=== PATIENT | female | born 1945 | race Hispanic/Latino ===

== ENCOUNTER 2021-10-25 23:50 | Inpatient (IN) | payer OTHER ==
[2021-10-26 00:40] LABS: Hematocrit 42.3 % (36.0-45.0); Lymphocytes % 4.7 % (15.3-44.8); RBC Red Blood Cell Count 4.65 M/uL (3.86-4.86)
[2021-10-26 00:41] LABS: Protime INR 0.93
[2021-10-26 01:00] LABS: Bilirubin Direct 0.2 mg/dL (0-0.2); Bilirubin Total 0.9 mg/dL (0.2-1.0); Magnesium 2.3 mg/dL (1.8-2.4); Protein, Total 6.5 g/dL (6.4-8.2); Troponin (Emerg Dept Use Only) 0.04 ng/mL (0.0-0.045)
[2021-10-26 01:13] LABS: Potassium 5.7 mmol/L (3.5-5.1)
[2021-10-26] MEDS ORDERED: NA CHLORIDE 0.9% 1,000 ML ONE ×3 (01:26→08:18)
[2021-10-26] MEDS ORDERED: NA CHLORIDE 0.9% 500 ML ONE ×2 (01:27→18:11)
[2021-10-26] MEDS ORDERED: NA CHLORIDE 0.9% 100 ML ONE (01:42)
[2021-10-26] MEDS ORDERED: INSULIN -REGULAR HUMAN 50 UNIT/0.5 ML ML ONE ×3 (01:44→21:51)
[2021-10-26 01:50] LABS: SARS-COV-2 RT PCR POSITIVE (NEGATIVE)
[2021-10-26 01:59] LABS: Blood Morphology Comment NOT SEEN (NOT SEEN); Platelet Estimate DECR
[2021-10-26 02:15] LABS: Urine Blood 1+ (Negative); Urine Glucose 2+ (Negative); Urine Protein Negative (Negative); Urine Specific Gravity <=1.005 (1.005-1.030); Urine pH 5.5 (5.0-7.0)
--- NOTE | 2021-10-26 03:19 | ER ---
Nurse's Notes [facility] Name: Maren Wolfe Age: 75 yrs Sex: Female : 1945 Arrival Date: 10/25/2021 Time: 23:56 Bed 7 Private MD: Diagnosis: Positive Covid 19. Hyperglycemia. Hyponatremia Sepsis. Dehydration. S/P Fall Presentation: 10/25 23:57 Chief complaint: EMS states: Called by daughter for generalized weakness; Per EMS, lp1 blood glucose reading HIGH. Coronavirus screen: cough unrelated to allergies. Ebola Screen: No symptoms or risks identified at this time. Onset of symptoms was October 25, 2021. 23:57 Method Of Arrival: EMS: [facility] lp1 10/26 00:37 Risk Assessment: Do you want to hurt yourself or someone else? Patient reports no lp1 desire to harm self or others. 00:37 Acuity: ANNETTE 2 lp1 00:51 Initial Sepsis Screen: Does the patient meet any 2 criteria? No. Patient's initial lp1 sepsis screen is negative. Does the patient have a suspected source of infection? No. Patient's initial sepsis screen is negative. Historical: - Allergies: 10/25 23:58 No Known Allergies; lp1 - Home Meds: 23:58 Lisinopril Oral [Active]; alendronate oral [Active]; lp1 - PMHx: 23:59 breast cancer; lp1 10/26 00:52 Low platelet; lp1 - PSHx: 10/25 23:57 R mastectomy; lp1 - Immunization history:: Client reports having NOT received the Covid vaccine. - Social history:: Smoking status: Patient denies any tobacco usage or history of. Screenin:59 Abuse screen: Denies threats or abuse. Denies injuries from another. Nutritional lp1 screening: No deficits noted. Tuberculosis screening: No symptoms or risk factors identified. Fall Risk Total Galeas Fall Scale indicates High Risk Score (45 or more points). Fall prevention measures have been instituted. Side Rails Up X 2 Frequent Obs/Assessments Occuring As available patient and family educated on Fall Prevention Program and Strategies. Assessment: 10/26 01:54 Pain: Unable to use pain scale. Does not appear to understand pain scale. Neuro: Level tw5 of Consciousness is confused, lethargic, stuporous. 02:06 Cardiovascular: Heart tones S1 S2 present Capillary refill < 3 seconds is brisk in tw5 bilateral fingers. Respiratory: Airway is patent Trachea midline Respiratory effort is even, unlabored, Breath sounds are coarse bilaterally. : Urine is clear. 03:30 Reassessment: Notified by daughter of patient with skin tear to left elbow after lp1 returning from CT; Skin tear cleansed with NS, no active bleeding noted, treated with triple antibiotic, gauze and MIL wrap applied. 04:00 Reassessment: Linens and gown changed. lp1 06:36 Reassessment: Per Dr. Kidd, verbal order to stop Insulin drip at this time and order lp1 STAT BMP, lab notified. 20:50 Reassessment: report called to JOSE JUAN Ying. Room 412. al4 Vital Signs: 00:51 BP 177 / 95; Pulse 94; Resp 24; Temp 99.7; Pulse Ox 97% on R/A; Weight 65.77 kg (R); lp1 02:06 BP 170 / 86; Pulse 99; Resp 24; Pulse Ox 98% on R/A; tw5 04:15 Temp 99.5(O); lp1 05:52 BP 83 / 49; Pulse 112; Resp 28; Pulse Ox 97% ; tw5 ED Course: 03 23:56 Patient arrived in ED. mw2 23:59 Ayo Schuler MD is Attending Physician. pkl 23:59 Patient has correct armband on for positive identification. Placed in gown. Bed in low lp1 position. hospital monitor on. Pulse ox on. NIBP on. 10/26 00:20 Inserted saline lock: 22 gauge in left antecubital area, using aseptic technique. Blood lp1 collected. 00:30 XRAY Chest (1 view) In Process Unspecified. EDMS 00:32 COVID swab sent to lab. lp1 00:37 Shira Rondon RN is Primary Nurse. lp1 00:38 Triage completed. lp1 00:52 Arm band placed on right wrist. lp1 01:46 Head C Spine Cap Wo Con In Process Unspecified. EDMS 02:06 Door closed. Noise minimized. Moved to private room. Warm blanket given. Verbal tw5 reassurance given. 02:06 Garza cath inserted, using sterile technique, 16 Fr., by me, balloon inflated, to tw5 gravity drainage, urine specimen collected. returned clear yellow urine. Patient tolerated well. Inserted saline lock: 22 gauge in left hand, using aseptic technique. IV discontinued, intact, bleeding controlled, No redness/swelling at site. Pressure dressing applied. 02:11 Creatinine, Serum Sent. tw5 02:11 Blood Culture Sent. tw5 02:12 Blood Culture Sent. tw5 02:12 Hemoglobin A1c Sent. tw5 03:15 Chikis Smith MD is Hospitalizing Provider. pkl 15:50 LJ notified patient's family in the waiting room yelling and cursing at staff. dh3 Administered Medications: 02:08 Drug: Insulin Regular Human 10 units {Co-Signature: rivera1 (Shira oRndon RN).} Route: IVP; tw5 Site: left hand; 02:09 Drug: Insulin Drip - (Insulin Regular Human 100 units, NS 0.9% 100 ml) {Co-Signature: tw5 trinidad (Shira Rondon RN).} Route: IV; Rate: calculated rate; Site: left hand; 02:10 CANCELLED (Duplicate Order): Insulin Regular Human 10 units IVP once tw5 02:10 Drug: NS 0.9% 1000 ml Route: IV; Rate: 1 bolus; Site: left hand; tw5 02:10 Not Given (Duplicate Order): NS 0.9% 1000 ml IV at 1000 ml once tw5 02:11 Drug: NS 0.9% 500 ml Route: IV; Rate: bolus; Site: left hand; tw5 02:11 Drug: NS 0.9% 1000 ml Route: IV; Rate: 100 ml/hr; Site: left hand; tw5 04:10 Drug: morphine 2 mg Route: IVP; Site: left hand; lp1 04:10 Drug: Zofran (Ondansetron) 4 mg Route: IVP; Site: left hand; lp1 04:15 Drug: Tylenol 500 mg Route: PO; lp1 Output: 04:57 Urine: 1900ml (Garza); Total: 1900ml. tw5 Outcome: 03:18 Decision to Hospitalize by Provider. pkl 04:58 Admitted to ER Hold. Please see [facility] for further documentation. lp1 04:58 critical 04:58 Instructed on the need for admit. 22:10 Patient left the ED. as6 Signatures: Dispatcher [employer] EDMS Ayo Schuler MD MD pkl Pena, Laura, RN RN lp1 [facility] Leanna Angel 2 Keyona Barnes 5 Adam Reid RN RN as6 Macho Lewis al4 Shira Rondon RN lp1
--- NOTE | 2021-10-26 03:19 | EDPHYS ---
Physician Documentation [facility] Name: Maren Wolfe Age: 75 yrs Sex: Female : 1945 Arrival Date: 10/25/2021 Time: 23:56 Bed 7 Private MD: ED Physician Ayo Schuler HPI: 10/26 00:42 This 75 yrs old Female presents to ER via EMS with unknown complaint. pkl 00:42 The patient presents with abdominal pain in the upper abdomen. Onset: The pkl symptoms/episode began/occurred today. Associated signs and symptoms: Pertinent positives: nausea and vomiting. Daughter called said patient has generalized weakness for a few days. Historical: - Allergies: 10/25 23:58 No Known Allergies; lp1 - Home Meds: 23:58 Lisinopril Oral [Active]; alendronate oral [Active]; lp1 - PMHx: 23:59 breast cancer; lp1 10/26 00:52 Low platelet; lp1 - PSHx: 10/25 23:57 R mastectomy; lp1 - Immunization history:: Client reports having NOT received the Covid vaccine. - Social history:: Smoking status: Patient denies any tobacco usage or history of. ROS: 10/26 00:42 Eyes: Negative for injury, pain, redness, and discharge, ENT: Negative for injury, pkl pain, and discharge, Neck: Negative for injury, pain, and swelling, Cardiovascular: Negative for chest pain, palpitations, and edema, Respiratory: Negative for shortness of breath, cough, wheezing, and pleuritic chest pain. Abdomen/GI: Positive for abdominal pain, nausea and vomiting, of the umbilical area and left upper quadrant. Back: Negative for acute changes. : Negative for urinary symptoms. MS/extremity: Negative for acute changes. Skin: Negative for rash. Neuro: Positive for weakness, of the generalized. Exam: 00:42 Head/Face: Normocephalic, atraumatic. Eyes: Pupils equal round and reactive to light, pkl extra-ocular motions intact. Lids and lashes normal. Conjunctiva and sclera are non-icteric and not injected. Cornea within normal limits. Periorbital areas with no swelling, redness, or edema. ENT: Nares patent. No nasal discharge, no septal abnormalities noted. Tympanic membranes are normal and external auditory canals are clear. Oropharynx with no redness, swelling, or masses, exudates, or evidence of obstruction, uvula midline. Mucous membranes moist. Neck: Trachea midline, no thyromegaly or masses palpated, and no cervical lymphadenopathy. Supple, full range of motion without nuchal rigidity, or vertebral point tenderness. No Meningismus. Chest/axilla: Normal chest wall appearance and motion. Nontender with no deformity. No lesions are appreciated. Cardiovascular: Regular rate and rhythm with a normal S1 and S2. No gallops, murmurs, or rubs. Normal PMI, no JVD. No pulse deficits. Respiratory: Lungs have equal breath sounds bilaterally, clear to auscultation and percussion. No rales, rhonchi or wheezes noted. No increased work of breathing, no retractions or nasal flaring. 00:42 Abdomen/GI: Bowel sounds: normal, Palpation: soft, mild abdominal tenderness, in the right upper quadrant and left upper quadrant. 00:42 Back: Exam negative for acute changes. 00:42 : Exam negative for acute changes. 00:42 Musculoskeletal/extremity: Exam is negative for acute changes. 00:42 Skin: Exam negative for rash. 00:42 Neuro: Orientation: is normal, Mentation: is normal, Cranial nerves: grossly normal, Motor: moves all fours. Vital Signs: 00:51 BP 177 / 95; Pulse 94; Resp 24; Temp 99.7; Pulse Ox 97% on R/A; Weight 65.77 kg (R); lp1 02:06 BP 170 / 86; Pulse 99; Resp 24; Pulse Ox 98% on R/A; tw5 04:15 Temp 99.5(O); lp1 05:52 BP 83 / 49; Pulse 112; Resp 28; Pulse Ox 97% ; tw5 MDM: 10/25 23:59 Patient medically screened. pkl 10/26 03:13 Data reviewed: vital signs, nurses notes, lab test result(s), EKG, radiologic studies, pkl CT scan, plain films. ED course: Talked to Dr. Smith. Admit to ICH. 10/26 00:08 Order name: Basic Metabolic Panel; Complete Time: 08:07 pkl 10/26 00:08 Order name: CBC with Diff; Complete Time: 02:31 pkl 10/26 00:08 Order name: LFT's; Complete Time: 08:07 pkl 10/26 00:08 Order name: Magnesium; Complete Time: 08:07 pkl 10/26 00:08 Order name: NT PRO-BNP; Complete Time: 08:07 pkl 10/26 00:08 Order name: PT-INR; Complete Time: 01:27 pkl 10/26 00:08 Order name: Troponin (emerg Dept Use Only); Complete Time: 08:07 pkl 10/26 00:08 Order name: Hemoglobin A1c pkl 10/26 00:10 Order name: COVID-19/FLU A+B (Document "Date of Onset" if Symptomatic); Complete Time: pkl :10/26 00:10 Order name: Lactate; Complete Time: 01:27 pkl 10/26 00:10 Order name: Creatinine, Serum pkl 10/26 00:28 Order name: Glucose, Ancillary Testing; Complete Time: 01:27 EDMS 10/26 00:48 Order name: Blood Culture; Complete Time: 19:01 EDMS 10/26 00:48 Order name: Blood Culture; Complete Time: 19:01 EDMS 10/26 00:49 Order name: Manual Differential; Complete Time: 02:31 EDMS 10/26 02:13 Order name: Urine Dipstick-Ancillary; Complete Time: 02:31 EDMS 10/26 02:31 Order name: Ketone, Serum pkl 10/26 02:31 Order name: Acetone Level; Complete Time: 03:18 EDMS 10/26 04:31 Order name: UR CREAT; Complete Time: 19:01 EDMS 10/26 04:31 Order name: UR SODIUM; Complete Time: 19:01 EDMS 10/26 04:31 Order name: Comprehensive Metabolic Panel EDMS 10/26 04:31 Order name: Comprehensive Metabolic Panel; Complete Time: 19:01 EDMS 10/26 04:31 Order name: Creatine Phosphokinase EDMS 10/26 04:31 Order name: Creatine Phosphokinase; Complete Time: 19:01 EDMS 10/26 04:31 Order name: Creatine Phosphokinase; Complete Time: 19:01 EDMS 10/26 04:31 Order name: Vancomycin Level Trough EDMS 10/26 00:08 Order name: XRAY Chest (1 view); Complete Time: 08:07 pkl 10/26 01:25 Order name: Head C Spine Cap Wo Con; Complete Time: 19: EDMS 10/26 04:31 Order name: Echo with Doppler EDMS 10/26 04:31 Order name: CBC with Automated Diff EDMS 10/26 04:31 Order name: CBC with Automated Diff; Complete Time: 19: EDMS 10/26 04:32 Order name: Renal Ultrasound-Complete; Complete Time: 19: EDMS 10/26 04:51 Order name: Creatine Phosphokinase; Complete Time: 08:07 EDMS 10/26 04:51 Order name: Thyroid Stimulating Hormone; Complete Time: 08:07 EDMS 10/26 05:12 Order name: Lactate Sepsis 2 HR Follow-up; Complete Time: 08:07 EDMS 10/26 06:29 Order name: Glucose, Ancillary Testing; Complete Time: 08:07 EDMS 10/26 06:57 Order name: Hemoglobin A1c; Complete Time: 08:07 EDMS 10/26 07:19 Order name: Basic Metabolic Panel; Complete Time: 08:07 EDMS 10/26 08:34 Order name: Glucose, Ancillary Testing; Complete Time: : EDMS 10/26 09:30 Order name: Type And Screen bp 10/26 10:53 Order name: ABO/RH no charge; Complete Time: : EDMS 10/26 11:08 Order name: Fibrinogen; Complete Time: : EDMS 10/26 11:11 Order name: PTT, Activated Partial Thromb; Complete Time: : EDMS 10/26 12:10 Order name: Type and Screen; Complete Time: 19: EDMS 10/26 12:29 Order name: Antibody Screen; Complete Time: : EDMS 10/26 13:56 Order name: Procalcitonin; Complete Time: 19: EDMS 10/26 14:10 Order name: Glucose, Ancillary Testing; Complete Time: : EDMS 10/26 15:39 Order name: Glucose, Ancillary Testing; Complete Time: : EDMS 10/26 18:23 Order name: Glucose, Ancillary Testing; Complete Time: : EDMS 10/26 19:46 Order name: Glucose, Ancillary Testing; Complete Time: : EDMS 10/26 21:42 Order name: D-Dimer; Complete Time: : EDMS 10/26 21:57 Order name: Glucose, Ancillary Testing; Complete Time: : EDMS 10/26 00:08 Order name: EKG; Complete Time: 00:09 pk 10/26 00:08 Order name: Cardiac monitoring; Complete Time: pkl 10/26 00:08 Order name: EKG - Nurse/Tech; Complete Time: pkl 10/26 00:08 Order name: IV Saline Lock; Complete Time: pkl 10/26 00:08 Order name: Labs collected and sent; Complete Time: pkl 10/26 00:08 Order name: O2 Per Protocol; Complete Time: : pkl 10/26 00:08 Order name: O2 Sat Monitoring; Complete Time: pkl 10/26 00:10 Order name: Urine Dipstick-Ancillary (obtain specimen); Complete Time: 02:11 pkl 10/26 04:31 Order name: CONS Physician Consult EDAZ 10/26 04:31 Order name: Physical Therapy Consult EDAZ 10/26 04:31 Order name: NPO EDAZ Administered Medications: 02:08 Drug: Insulin Regular Human 10 units {Co-Signature: lp1 (Shira Rondon RN).} Route: IVP; Site: left hand; 02:09 Drug: Insulin Drip - (Insulin Regular Human 100 units, NS 0.9% 100 ml) {Co-Signature: lp1 (Shira Rondon RN).} Route: IV; Rate: calculated rate; Site: left hand; 02:10 CANCELLED (Duplicate Order): Insulin Regular Human 10 units IVP once tw 02:10 Drug: NS 0.9% 1000 ml Route: IV; Rate: 1 bolus; Site: left hand; tw5 02:10 Not Given (Duplicate Order): NS 0.9% 1000 ml IV at 1000 ml once tw5 02:11 Drug: NS 0.9% 500 ml Route: IV; Rate: bolus; Site: left hand; tw5 02:11 Drug: NS 0.9% 1000 ml Route: IV; Rate: 100 ml/hr; Site: left hand; tw5 04:10 Drug: morphine 2 mg Route: IVP; Site: left hand; lp1 04:10 Drug: Zofran (Ondansetron) 4 mg Route: IVP; Site: left hand; lp1 04:15 Drug: Tylenol 500 mg Route: PO; lp1 Disposition Summary: 10/26/21 03:18 Hospitalization Ordered Hospitalization Status: Inpatient Admission pkl Provider: Chikis Smith pkl Condition: Stable pkl Problem: new pkl Symptoms: are unchanged pkl Bed/Room Type: Standard pkl Location: Telemetry/MedSurg (Inpatient)(10/26/21 20:18) mw Room Assignment: 412(10/26/21 20:18) mw Diagnosis - Positive Covid 19. Hyperglycemia. Hyponatremia Sepsis. Dehydration. S/P Fall pkl Forms: - Medication Reconciliation Form pkl - SBAR form pkl Signatures: Dispatcher [employer] EDMS Sunshine Lala RN RN Ayo Schuler MD MD pkl Zbigniew Mooney MD MD rn Pena, Laura, RN RN lp1 Keyona Barnes tw5 Shira Rondon RN lp1 Corrections: (The following items were deleted from the chart) 01:22 01:11 Abdomen Pelvis W Con+CT.RAD.BRZ ordered. EDMS EDMS 01:23 01:11 Chest For PE Angio+CT.RAD.BRZ ordered. EDMS EDMS 01:25 01:22 Chest Abd Pelvis Wo Con ordered. EDMS EDMS 01:41 00:53 BLOOD CULTURE*+BA.LAB.BRZ ordered. EDMS EDMS 01:46 01:23 Head Brain Wo Cont ordered. EDMS EDMS 02:10 01:35 Insulin Regular Human 10 units IVP once ordered. 1 tw5 03:24 03:18 Intensive Care Unit pkl mw 03:24 03:18 pkl mw 04:42 04:30 Blood Culture ordered. EDMS EDMS 04:42 04:31 Vancomycin Level Trough ordered. EDMS EDMS 04:51 04:31 Thyroid Stimulating Hormone ordered. EDMS EDMS 04:51 04:31 Creatine Phosphokinase ordered. EDMS EDMS 20:18 03:24 [facility] ER HOLD mw mw 20:18 03:24 ERHOLD- mw mw
[2021-10-26] MEDS ORDERED: ONDANSETRON 4 MG/2 ML VIAL ONE (03:32)
[2021-10-26] MEDS ORDERED: MORPHINE 2 MG/ML SYR ONE ×2 (03:32→21:50)
--- NOTE | 2021-10-26 04:19 | P.HP ---
Certification for Inpatient With expected LOS: >2 Midnights Patient will require the following post-hospital care: None Practitioner: I am a practitioner with admitting privileges, knowledge of patient current condition, hospital course, and medical plan of care. Services: Services provided to patient in accordance with Admission requirements found in Title 42 Section 412.3 of the Code of Federal Regulations Patient History Date of Service: 10/26/21 Reason for admission: Weakness and recurrent falls History of Present Illness: 75-year-old female with past medical history of hypertension, recent work-up by physicians at [facility] and told of low platelet count, prior history of breast cancer status post mastectomy and 1 round of chemo/radiation over 10 years ago, presented after being brought by daughters to the emergency room because of recurrent falls in the last 2 weeks. As well as noted bruising no fatty liver left flank, progressive weakness. Daughter stated patient recently had a recent upper respiratory tract infection 5 days ago and was treated with Z-Joey as well as steroids. She has finished the course of steroids now. Still denies patient has any cough or fever they have noted patient has been having abnormal movement of the extremities. Patient has been been gradually more lethargic and unable to hold conversation now. Daughter stated patient does not have any exposure. They are unsure if patient had a Covid vaccine or flu shot as directed patient received the vaccine above 5 months ago. On presentation patient was noted with elevated glucose of 1152, creatinine of 4.5, potassium 5.7 and sodium 118. Her platelet count was low at 9. Family states patient has previously not been managed for thrombocytopenia. They states she was never treated with steroid but was only told her platelet count was low during work-up about a month ago. Family denies any prior history of diabetes. They state patient barely takes any medication as she only take holistic meds. Patient was also noted with Covid positive status although family states they would like to test repeated as they do not think patient have Covid. She has been admitted for severe hyperglycemia, acute renal failure, Covid pneumonia as well as significant thrombocytopenia Home medications list reviewed: No (Daughters will bring full med list) - Past Medical/Surgical History Diabetic: No -: History of breast cancer -: Recently told low platelet -: Hypertension Past Surgical History: Reviewed- Non-Contributory -: History of mastectomy -: History of - Social History Smoking Status: Never smoker Alcohol use: No CD- Drugs: No Caffeine use: No Place of Residence: Home Review of Systems is unable to be obtained Physical Examination - Physical Exam General: Delirious (Elderly female, on nasal cannula O2) HEENT: Atraumatic, Normocephalic, Other (Dry oral mucosa) Neck: Supple, 2+ carotid pulse no bruit, JVD not distended Respiratory: Clear to auscultation bilaterally, Normal air movement Cardiovascular: No edema, Regular rate/rhythm, Normal S1 S2 Gastrointestinal: Normal bowel sounds, Soft and benign, Non-distended Musculoskeletal: No clubbing, No swelling Integumentary: Other ( ecchymosis over a large portion of the left flank) Neurological: Other (Drowsy/lethargic) - Studies Laboratory Data (last 24 hrs) 10/26/21 00:20: PT 10.7, INR 0.93 10/26/21 00:20: WBC 21.30 H*, Hgb 13.2, Hct 42.3, Plt Count 9 L* 10/26/21 00:20: Sodium 118 L*, Potassium 5.7 H*, BUN 62 H, Creatinine 4.51 H, Glucose 1152 H*, Magnesium 2.3, Total Bilirubin 0.9, AST 17, ALT 24, Alkaline Phosphatase 71 Imagings Data: Chest x-ray reviewedsmall right hilar infiltrate noted Assessment and Plan - Problems (Diagnosis) (1) COVID-19 virus RNA test result positive at limit of detection Current Visit: Yes Status: Acute (2) Acute kidney failure with lesion of tubular necrosis Current Visit: Yes Status: Acute (3) Hyperglycemia without ketosis Current Visit: Yes Status: Acute (4) Hyponatremia syndrome Current Visit: Yes Status: Acute (5) Hyperkalemia Current Visit: Yes Status: Acute (6) Thrombocytopenia Current Visit: Yes Status: Acute (7) Diastolic CHF Current Visit: Yes Status: Acute - Plan Hyperglycemia with [place] onset diabetes mellitus in setting of recent steroid use Acute renal failure Severe thrombocytopenia Presumed diastolic CHF Presumed right base pneumonia Hyperkalemia Hyponatremia Recurrent falls Plan We will admit to ICU We will start insulin drip Every hour glucose monitoring Might need long-acting insulin doses Given my elevated BNP, will start Lasix doses now Follow creatinine and BUN levels Serum sodium likely due to pseudohyponatremia, follow with glucose control Elevated potassium likely to improve with diuresis and insulin use Severe low platelets, continue to monitor may need platelet transfusion if further evidence of bleeding We will consult oncology for further thrombocytopenia evaluation We will consult PT and OT will more awake Start empirical Rocephin given small infiltrate of the right base on chest x-ray Obtain CT of the head/abdomen and chest Daughters discussed withdamián patient to be DNR/DNI Positive hospital stay for more than 48 hours We will do IV Protonix for now Discharge Plan: Home Plan to discharge in: Greater than 2 days - Advance Directives Does patient have a Living Will: No Does patient have a Durable POA for Healthcare: No - Code Status/Comfort Care Code Status: Do Not Intubate
[2021-10-26] MEDS ORDERED: ONDANSETRON 4 MG/2 ML VIAL IV PRN (04:24)
[2021-10-26] MEDS ORDERED: ALBUTEROL 2.5 MG/3 ML NEB SOL NEB PRN (04:24)
[2021-10-26] MEDS ORDERED: guaiFENesin 100 MG/5 ML UCUP PO PRN (04:28)
[2021-10-26] MEDS ORDERED: ACETAMINOPHEN 500 MG TAB ONE (04:39)
[2021-10-26] MEDS ORDERED: FUROSEMIDE 40 MG/4 ML VIAL IV SCH (05:00)
[2021-10-26 05:32] LABS: Thyroid Stimulating Hormone 0.276 uIU/mL (0.360-3.740)
--- NOTE | 2021-10-26 06:19 | P.PN ---
Subjective Date of Service: 10/26/21 Chief Complaint: Weakness and recurrent falls Subjective: Other (Patient alert but with increased somnolence) Physical Examination - Studies Laboratory Data (last 24 hrs) 10/26/21 00:20: PT 10.7, INR 0.93 10/26/21 00:20: WBC 21.30 H*, Hgb 13.2, Hct 42.3, Plt Count 9 L* 10/26/21 00:20: Sodium 118 L*, Potassium 5.7 H*, BUN 62 H, Creatinine 4.51 H, Glucose 1152 H*, Magnesium 2.3, Total Bilirubin 0.9, AST 17, ALT 24, Alkaline Phosphatase 71 Assessment & Plan Discharge Plan: Home Plan to discharge in: Greater than 2 days Physician Review Additional Text: COVID: Positive Unvaccinated Initial CXR: COMPARISON: none FINDINGS: The lungs appear clear of acute infiltrate. The heart is normal size IMPRESSION: No acute abnormalities displayed CT Head/Neck/Chest/AB/Pelvis: COMPARISON: None. FINDINGS: Multiple transaxial tomograms of the brain were obtained from the base of the skull to the vertex without contrast. 2-D multiplanar reformats and the coronal and sagittal plane were performed and reviewed. Multiple axial CT images through the cervical spine were obtained at 2 mm slice thickness at 2 mm interval reconstruction. In addition 2-D multiplanar reformats and the sagittal coronal plane were performed and reviewed. Multiple transaxial tomograms of the chest were obtained from the lung apices through the adrenal glands, utilizing 5 mm slice thickness at 5 mm interval reconstruction without the administration of IV contrast. Multiplanar reformats in the sagittal and coronal plane were generated and reviewed. Multiple transaxial tomograms of the abdomen and pelvis were performed from the lung bases to the symphysis pubis 5 mm slice thickness at 5 mm interval reconstruction, without administration of IV and oral contrast. Multiplanar reformats in the sagittal and coronal plane were generated and reviewed. This exam was performed according to our departmental dose-optimization protocol, which includes automated exposure control, adjustment of the mA and/or kV according to patient size and/or use of iterative reconstruction technique. CT brain: Brain parenchyma demonstrate mild prominence of the sulci and gyri are corresponding to mild cerebral and cerebellar atrophy. There is minimal periventricular white matter changes of microvascular ischemia. There is no midline shift and/or mass effect. There is no evidence for acute intracranial hemorrhage. Lateral ventricles and cisterns displace normal appearance. No intra or extra axial fluid collections were seen. The calvarium is intact with no evidence for fracture. The visualized portions of the paranasal sinuses and orbits demonstrate to be clear. CT C-spine: There is diffuse bony osteopenia. The alignment of the vertebral bodies are normal. There is no evidence of fracture or subluxation. There is degenerative very minimal disc disease with decreased intervertebral disc height, anterior spondylosis and posterior osteophyte complex at C5/C6. Also degenerative changes are seen within the anterior arch of C1 and dens. The spinal canal demonstrate no evidence for significant stenosis. Neural foramina demonstrate to be unremarkable. There are uncovertebral degenerative changes C2- C6. There is no prevertebral soft tissue swelling. Sagittal coronal reformatted images demonstrate no subluxation or bony abnormalities. CT chest: The lungs parenchyma demonstrate dependent atelectatic changes especially along the right lung base with mild elevation of the right hemidiaphragm. No significant masses and/or nodules are identified. The trachea mainstem bronchus demonstrate to be normal. There is no significant pleural and/or pericardial effusions. The heart is nonenlarged. There are mitral annular calcification. There are very minimal coronary artery calcifications. There is intimal thoracic aortic arch calcification. There is no significant mediastinal and/or hilar lymphadenopathy. The axillary regions demonstrate to be clear. The bone windows demonstrate mild diffuse bony osteopenia. Degenerative changes glenohumeral joint greater right than left. CT abdomen pelvis: Grossly the unopacified liver, pancreas, spleen and adrenal glands demonstrate to be within normal limits, no significant focal lesions were identified. Radiodensity within the fundus of the gallbladder corresponding to cholelithiasis The kidneys demonstrate bilateral hydronephrosis and hydroureter with a markedly distended urinary bladder. Probable cystocele. There is perinephric haziness suggesting fluid versus less likely inflammation. There is no evidence for nephrolithiasis. Grossly the unopacified stomach, small bowel and large bowel demonstrate to be within normal limits. There is no evidence for bowel dilatation/or free air. There is diverticulosis within the left site colon The appendix is unremarkable. The uterus is absent The aorta demonstrate atherosclerotic disease. There is no retroperitoneal lymphadenopathy. There is no evidence for ascites. The bone windows demonstrate diffuse bony osteopenia. Superior endplate compression deformity at T12 and L1 as well as L3. Degenerative disc disease L4- S1 with posterior facet hypertrophy. IMPRESSION: Mild cerebral and cerebellar atrophy with minimal periventricular white matter changes of microvascular ischemia. No evidence for fracture or subluxation of the cervical spine. Degenerative changes as described above. Cholelithiasis. Bilateral hydronephrosis and hydroureter with a markedly distended urinary bladder with probable cystocele. There is perinephric haziness suggesting fluid versus less likely inflammation. Diverticulosis with no evidence for diverticulitis. Superior endplate compression deformity at T12 and L1 as well as L3. Atherosclerotic disease of the thoracic and abdominal aorta. Renal US: COMPARISON: October 11, 2021 FINDINGS: The right kidney measures 10 cm with a normal echotexture. Small echogenic structure midpole The left kidney measures 9 cm with a normal echotexture. Hydronephrosis is not seen. A Garza catheter is present within a collapsed bladder. IMPRESSION: Small echogenic structure mid pole right kidney may represent a nonobstructing calculus Physical exam: General: Patient alert to stimuli. Increased somnolence noted HEENT: Atraumatic, Normocephalic, Other (Dry oral mucosa) Neck: Supple, 2+ carotid pulse no bruit, JVD not distended Respiratory: Clear to auscultation bilaterally, Normal air movement Cardiovascular: No edema, Regular rate/rhythm, Normal S1 S2 Gastrointestinal: Normal bowel sounds, Soft and benign, Non-distended Musculoskeletal: No clubbing, No swelling Integumentary: Dry skin Neurological: Other (Drowsy/lethargic) Impression: Acute metabolic encephalopathy secondary to acute renal failure with hyponatremia, hyperkalemia COVID positive Nonketotic hyperosmolar Hyperglycemia with DM type 2 Acute on chronic thrombocytopenia History of breast cancer Leukocytosis Plan: Acute metabolic encephalopathy secondary to acute renal failure with hyponatremia, hyperkalemia: Continue with IV fluids. Recheck BMP shows improvement in renal function. Hyponatremia improved. Hyperkalemia improved. Continue with IV fluids. Nephrology consulted. Await recommendations. Renal ultrasound shows no hydronephrosis. Nonobstructing calculus noted to the right midpole kidney. Continue to monitor closely. Monitor blood pressure closely. Patient may require vasopressor. Will discuss further with pulmonology and nephrology. COVID positive: Patient appears asymptomatic. Patient unvaccinated. Will monitor closely. Await recommendations from pulmonology. Patient on room air. Chest x-ray unremarkable. Nonketotic hyperosmolar Hyperglycemia with DM type 2: Patient was initially placed on IV insulin drip. This has been held. Continue Accu-Cheks and sliding scale. Hemoglobin A1c 11.2. We will continue to monitor closely. Acute on chronic thrombocytopenia: Patient has been seen by [facility]. Patient was placed on prednisone 40 mg daily recently. She was to have a bone marrow biopsy. Case discussed with hematology. Will obtain peripheral smear, fibrinogen, monitor PTT INR and PTT. 2 units of platelets to be given. Continue to monitor closely. Await further conditions from hematology. History of breast cancer: Patient is seen by [facility]. Leukocytosis: Etiology unclear. This may be related to Covid pneumonia and recent steroid use. Will monitor closely. Will check procalcitonin. Patient empirically on Rocephin. Blood cultures obtained. CODE STATUS: This was discussed in detail with family. Patient is DO NOT RESUSCITATE. DVT prophylaxis: SCDs in place. No anticoagulation recommended due to thrombocytopenia. Advance care [id number] minutes: Anticipate improvement. We will continue monitor closely.
[2021-10-26 07:18] LABS: Potassium 4.8 mmol/L (3.5-5.1)
[2021-10-26] MEDS: NA CHLORIDE 0.9% 1,000 ML IV SCH ×2 (08:00→18:00)
[2021-10-26] MEDS: FOLIC ACID 1 MG in NA CHLORIDE 0.9% 50 ML IV SCH (08:01)
[2021-10-26] MEDS: METHYLPREDNISOLONE 40 MG INJ IV SCH ×2 (08:04→17:00)
[2021-10-26] MEDS: FAMOTIDINE 20 MG/2 ML VIAL IV SCH (08:04)
[2021-10-26] MEDS: CEFTRIAXONE 1,000 MG in NA CHLORIDE 0.9% 50 ML IVPB SCH (08:04)
--- NOTE | 2021-10-26 08:05 | RAD REPORT ---
EXAM DESCRIPTION: Leigh Ann Single View10/26/2021 12:30 am CLINICAL HISTORY: Weakness COMPARISON: none FINDINGS: The lungs appear clear of acute infiltrate. The heart is normal size IMPRESSION: No acute abnormalities displayed
[2021-10-26] MEDS ORDERED: METHYLPREDNISOLONE 40 MG INJ ONE (08:18)
[2021-10-26] MEDS ORDERED: NA CHLORIDE 0.9% 50 ML ONE (08:18)
[2021-10-26] MEDS ORDERED: CEFTRIAXONE 1000 MG/VIAL ONE (08:18)
[2021-10-26] MEDS ORDERED: FAMOTIDINE 20 MG/2 ML VIAL IV ONE (08:18)
[2021-10-26] MEDS: THIAMINE 200 MG/2 ML INJ IVP SCH (09:00)
[2021-10-26] MEDS ORDERED: ENOXAPARIN 40 MG/0.4 ML SQ SCH (09:00)
[2021-10-26] MEDS ORDERED: dexAMETHasone 4 MG TAB PO SCH (09:00)
[2021-10-26] MEDS ORDERED: FOLIC ACID 5 MG/ML VIAL IVP SCH (09:00)
--- NOTE | 2021-10-26 09:03 | RAD REPORT ---
EXAM DESCRIPTION: US - Renal Ultrasound-Complete - 10/26/2021 6:11 am CLINICAL HISTORY: Acute renal failure COMPARISON: October 11, 2021 FINDINGS: The right kidney measures 10 cm with a normal echotexture. Small echogenic structure midpo le The left kidney measures 9 cm with a normal echotexture. Hydronephrosis is not seen. A Garza catheter is present within a collapsed bladder. IMPRESSION: Small echogenic structure mid pole right kidney may represent a nonobstructing calculus
--- NOTE | 2021-10-26 10:28 | RAD REPORT ---
EXAM DESCRIPTION: CT - Head C Spine Cap Aga Con - 10/26/2021 6:22 am CLINICAL HISTORY: 75 years, Female, ABD PAIN COMPARISON: None. FINDINGS: Multiple transaxial tomograms of the brain were obtained from the base of the skull to the vertex without contrast. 2-D multiplanar reformats and the coronal and sagittal plane were performed and reviewed. Multiple axial CT images through the cervical spine were obtained at 2 mm slice thickness at 2 mm int erval reconstruction. In addition 2-D multiplanar reformats and the sagittal coronal plane were perfo rmed and reviewed. Multiple transaxial tomograms of the chest were obtained from the lung apices through the adrenal gla nds, utilizing 5 mm slice thickness at 5 mm interval reconstruction without the administration of IV contrast. Multiplanar reformats in the sagittal and coronal plane were generated and reviewed. Multiple transaxial tomograms of the abdomen and pelvis were performed from the lung bases to the sym physis pubis 5 mm slice thickness at 5 mm interval reconstruction, without administration of IV and o ral contrast. Multiplanar reformats in the sagittal and coronal plane were generated and reviewed. This exam was performed according to our departmental dose-optimization protocol, which includes auto mated exposure control, adjustment of the mA and/or kV according to patient size and/or use of iterat fatimah reconstruction technique. CT brain: Brain parenchyma demonstrate mild prominence of the sulci and gyri are corresponding to mil d cerebral and cerebellar atrophy. There is minimal periventricular white matter changes of microvasc ular ischemia. There is no midline shift and/or mass effect. There is no evidence for acute intracran ial hemorrhage. Lateral ventricles and cisterns displace normal appearance. No intra or extra axi al fluid collections were seen. The calvarium is intact with no evidence for fracture. The visualized portions of the paranasal sinuses and orbits demonstrate to be clear. CT C-spine: There is diffuse bony osteopenia. The alignment of the vertebral bodies are normal. The re is no evidence of fracture or subluxation. There is degenerative very minimal disc disease with de creased intervertebral disc height, anterior spondylosis and posterior osteophyte complex at C5/C6. A lso degenerative changes are seen within the anterior arch of C1 and dens. The spinal canal demonstra te no evidence for significant stenosis. Neural foramina demonstrate to be unremarkable. There are un covertebral degenerative changes C2-C6. There is no prevertebral soft tissue swelling. Sagittal cor onal reformatted images demonstrate no subluxation or bony abnormalities. CT chest: The lungs parenchyma demonstrate dependent atelectatic changes especially along the right l miriam base with mild elevation of the right hemidiaphragm. No significant masses and/or nodules are maximilian ntified. The trachea mainstem bronchus demonstrate to be normal. There is no significant pleural an d/or pericardial effusions. The heart is nonenlarged. There are mitral annular calcification. There are very minimal coronary art david calcifications. There is intimal thoracic aortic arch calcification. There is no significant mediastinal and/or hilar lymphadenopathy. The axillary regions demonstrate to be clear. The bone windows demonstrate mild diffuse bony osteopenia. Degenerative changes glenohumeral joint gr eater right than left. CT abdomen pelvis: Grossly the unopacified liver, pancreas, spleen and adrenal glands demonstrate to be within normal limits, no significant focal lesions were identified. Radiodensity within the fund us of the gallbladder corresponding to cholelithiasis The kidneys demonstrate bilateral hydronephrosis and hydroureter with a markedly distended urinary bl adder. Probable cystocele. There is perinephric haziness suggesting fluid versus less likely inflamma tion. There is no evidence for nephrolithiasis. Grossly the unopacified stomach, small bowel and large bowel demonstrate to be within normal limits. There is no evidence for bowel dilatation/or free air. There is diverticulosis within the left site c olon The appendix is unremarkable. The uterus is absent The aorta demonstrate atherosclerotic disease. There is no retroperitoneal lym phadenopathy. There is no evidence for ascites. The bone windows demonstrate diffuse bony osteopenia. Superior endplate compression deformity at T12 and L1 as well as L3. Degenerative disc disease L4-S1 with posterior facet hypertrophy. IMPRESSION: Mild cerebral and cerebellar atrophy with minimal periventricular white matter changes o f microvascular ischemia. No evidence for fracture or subluxation of the cervical spine. Degenerative changes as described above. Cholelithiasis. Bilateral hydronephrosis and hydroureter with a markedly distended urinary bladder with probable cyst ocele. There is perinephric haziness suggesting fluid versus less likely inflammation. Diverticulosis with no evidence for diverticulitis. Superior endplate compression deformity at T12 and L1 as well as L3. Atherosclerotic disease of the thoracic and abdominal aorta. Electronically signed by: Oscar Bobo MD 10/26/2021 2:20 AM FORESTRY PROFESSOR Due to temporary technical issues with the PACS/Fluency reporting system, reports are being signed by the in house radiologist without review as a courtesy to ensure prompt reporting. The interpreting r adiologist is fully responsible for the content of the report.
--- NOTE | 2021-10-26 11:15 | EKG ---
Test Date: 2021-10-26 Test Time: 00:25:51 Game Preserve Manager: JENNIFER MEASUREMENT RESULTS: Intervals: Rate: 97 IL: 136 QRSD: 112 QT: 368 QTc: 467 Whitmer: P: 52 IL: 136 QRS: -44 T: 17 INTERPRETIVE STATEMENTS: Normal sinus rhythm Possible Left atrial enlargement Left axis deviation Incomplete right bundle branch block Left ventricular hypertrophy Abnormal ECG No previous ECG available for comparison Electronically Signed On 10-26-21 11:14:05 LAP MAKER by Josh Méndez
[2021-10-26 11:37] VITALS: BMI 25.3
[2021-10-26] MEDS ORDERED: INFLUENZA VACCINE (for 6+ mo) 0.5 ML DOSE IMVAC ONE (13:00)
--- NOTE | 2021-10-26 13:43 | P.CNS ---
Date of Consult: 10/26/21 Reason for Consult: COVID pos and renal failure Chief Complaint: Weakness and recurrent falls History of Present Illness: Pt is 75 yrs of age unresponsive DW family members, hx of Thrombocytopenia, HXof breast cancer DX 1997, AW progressive deteriroation was able to ambulate with assistance, DX URTI AW with COVID, AW severe hypergycemia renal failure and severe thrombocytopenia Allergies No Known Allergies Allergy (Unverified 10/26/21 06:28) - Past Medical/Surgical History Diabetic: No -: History of breast cancer -: Recently told low platelet -: Hypertension -: History of mastectomy -: History of - Social History Alcohol use: No CD- Drugs: No Caffeine use: No Place of Residence: Home Review of Systems is unable to be obtained Physical Examination Temp Pulse Resp BP Pulse Ox 98.8 F 74 18 99/48 L 99 10/26/21 11:00 10/26/21 11:00 10/26/21 11:00 10/26/21 11:00 10/26/21 11:00 General: Unresponsive Respiratory: Clear to auscultation bilaterally Cardiovascular: No edema, Regular rate/rhythm Laboratory Data (last 24 hrs) 10/26/21 00:20: PT 10.7, INR 0.93 10/26/21 00:20: WBC 21.30 H*, Hgb 13.2, Hct 42.3, Plt Count 9 L* 10/26/21 00:20: Sodium 118 L*, Potassium 5.7 H*, BUN 62 H, Creatinine 4.51 H, Glucose 1152 H*, Magnesium 2.3, Total Bilirubin 0.9, AST 17, ALT 24, Alkaline Phosphatase 71 - Problems (1) COVID-19 virus RNA test result positive at limit of detection Current Visit: Yes Status: Acute Plan: Pt is COVID pos, sever thrombocytopenia and renal failure/ LAbs ordered CW IV fluid s and steroids and AB for now, Dobut COVID penumonia cxry clear and O2 sat satisfactory. peripheral smear. BP low/ REnal US no obstruction/ Cultures pending Prog poor/ BS controlled
[2021-10-26] MEDS ORDERED: D50W 25 GM/50 ML SYRINGE IV PRN ×2 (14:10→18:36)
[2021-10-26] MEDS ORDERED: GLUCAGON 1 MG/VIAL IM PRN ×2 (14:10→18:36)
--- NOTE | 2021-10-26 16:14 | P.CNS ---
Date of Consult: 10/26/21 Reason for Consult: DEMI/ CKD Requesting Physician: Kingsley Kidd Chief Complaint: Weakness and recurrent falls History of Present Illness: 75-year-old female with past medical history of hypertension, recent work-up by physicians at [facility] and told of low platelet count, prior history of breast cancer status post mastectomy and 1 round of chemo/radiation over 10 years ago, presented after being brought by daughters to the emergency room because of recurrent falls in the last 2 weeks. As well as noted bruising no fatty liver left flank, progressive weakness. Daughter stated patient recently had a recent upper respiratory tract infection 5 days ago and was treated with Z-Joey as well as steroids. She has finished the course of steroids now. Still denies patient has any cough or fever they have noted patient has been having abnormal movement of the extremities. Patient has been been gradually more lethargic and unable to hold conversation now. Daughter stated patient does not have any exposure. They are unsure if patient had a Covid vaccine or flu shot as directed patient received the vaccine above 5 months ago. On presentation patient was noted with elevated glucose of 1152, creatinine of 4.5, potassium 5.7 and sodium 118. Her platelet count was low at 9. Family states patient has previously not been managed for thrombocytopenia. They states she was never treated with steroid but was only told her platelet count was low during work-up about a month ago. Family denies any prior history of diabetes. They state patient barely takes any medication as she only take holistic meds. Patient was also noted with Covid positive status although family states they would like to test repeated as they do not think patient have Covid. She has been admitted for severe hyperglycemia, acute renal failure, Covid pneumonia as well as significant thrombocytopenia 00:42 This 75 yrs old Female presents to ER via EMS with unknown complaint. pkl 00:42 The patient presents with abdominal pain in the upper abdomen. Onset: The pkl symptoms/episode began/occurred today. Associated signs and symptoms: Pertinent positives: nausea and vomiting. Daughter called said patient has generalized weakness for a few days. Allergies No Known Allergies Allergy (Unverified 10/26/21 06:28) Home medications list reviewed: Yes - Past Medical/Surgical History Diabetic: No -: History of breast cancer -: Recently told low platelet -: Hypertension -: History of mastectomy -: History of - Social History Alcohol use: No CD- Drugs: No Caffeine use: No Place of Residence: Home Review of Systems 10-point ROS is otherwise unremarkable General: Weakness, Malaise Respiratory: Cough, SOB with Excertion Neurological: Weakness Physical Examination Temp Pulse Resp BP Pulse Ox 98.6 F 97 H 18 119/86 100 10/26/21 16:00 10/26/21 16:00 10/26/21 16:00 10/26/21 16:00 10/26/21 16:00 General: Cooperative, Mild distress HEENT: Atraumatic Neck: Supple Respiratory: Clear to auscultation bilaterally Cardiovascular: No edema, Regular rate/rhythm Gastrointestinal: Non-distended Musculoskeletal: No clubbing, No contractures Integumentary: No rashes, No cyanosis Laboratory Data (last 24 hrs) 10/26/21 00:20: PT 10.7, INR 0.93 10/26/21 00:20: WBC 21.30 H*, Hgb 13.2, Hct 42.3, Plt Count 9 L* 10/26/21 00:20: Sodium 118 L*, Potassium 5.7 H*, BUN 62 H, Creatinine 4.51 H, Glucose 1152 H*, Magnesium 2.3, Total Bilirubin 0.9, AST 17, ALT 24, Alkaline Phosphatase 71 Imagings Data: EXAM DESCRIPTION: US - Renal Ultrasound-Complete - 10/26/2021 6:11 am CLINICAL HISTORY: Acute renal failure COMPARISON: October 11, 2021 FINDINGS: The right kidney measures 10 cm with a normal echotexture. Small echogenic structure midpole The left kidney measures 9 cm with a normal echotexture. Hydronephrosis is not seen. A Garza catheter is present within a collapsed bladder. IMPRESSION: Small echogenic structure mid pole right kidney may represent a nonobstructing calculus EXAM DESCRIPTION: CT - Head C Spine Cap Wo Con - 10/26/2021 6:22 am CLINICAL HISTORY: 75 years, Female, ABD PAIN COMPARISON: None. FINDINGS: Multiple transaxial tomograms of the brain were obtained from the base of the skull to the vertex without contrast. 2-D multiplanar reformats and the coronal and sagittal plane were performed and reviewed. Multiple axial CT images through the cervical spine were obtained at 2 mm slice thickness at 2 mm interval reconstruction. In addition 2-D multiplanar reformats and the sagittal coronal plane were performed and reviewed. Multiple transaxial tomograms of the chest were obtained from the lung apices through the adrenal glands, utilizing 5 mm slice thickness at 5 mm interval reconstruction without the administration of IV contrast. Multiplanar reformats in the sagittal and coronal plane were generated and reviewed. Multiple transaxial tomograms of the abdomen and pelvis were performed from the lung bases to the symphysis pubis 5 mm slice thickness at 5 mm interval reconstruction, without administration of IV and oral contrast. Multiplanar reformats in the sagittal and coronal plane were generated and reviewed. This exam was performed according to our departmental dose-optimization protocol, which includes automated exposure control, adjustment of the mA and/or kV according to patient size and/or use of iterative reconstruction technique. CT brain: Brain parenchyma demonstrate mild prominence of the sulci and gyri are corresponding to mild cerebral and cerebellar atrophy. There is minimal periventricular white matter changes of microvascular ischemia. There is no midline shift and/or mass effect. There is no evidence for acute intracranial hemorrhage. Lateral ventricles and cisterns displace normal appearance. No intra or extra axial fluid collections were seen. The calvarium is intact with no evidence for fracture. The visualized portions of the paranasal sinuses and orbits demonstrate to be clear. CT C-spine: There is diffuse bony osteopenia. The alignment of the vertebral bodies are normal. There is no evidence of fracture or subluxation. There is degenerative very minimal disc disease with decreased intervertebral disc height, anterior spondylosis and posterior osteophyte complex at C5/C6. Also degenerative changes are seen within the anterior arch of C1 and dens. The spinal canal demonstrate no evidence for significant stenosis. Neural foramina demonstrate to be unremarkable. There are uncovertebral degenerative changes C2- C6. There is no prevertebral soft tissue swelling. Sagittal coronal reformatted images demonstrate no subluxation or bony abnormalities. CT chest: The lungs parenchyma demonstrate dependent atelectatic changes especially along the right lung base with mild elevation of the right hemidiaphragm. No significant masses and/or nodules are identified. The trachea mainstem bronchus demonstrate to be normal. There is no significant pleural and/or pericardial effusions. The heart is nonenlarged. There are mitral annular calcification. There are very minimal coronary artery calcifications. There is intimal thoracic aortic arch calcification. There is no significant mediastinal and/or hilar lymphadenopathy. The axillary regions demonstrate to be clear. The bone windows demonstrate mild diffuse bony osteopenia. Degenerative changes glenohumeral joint greater right than left. CT abdomen pelvis: Grossly the unopacified liver, pancreas, spleen and adrenal glands demonstrate to be within normal limits, no significant focal lesions were identified. Radiodensity within the fundus of the gallbladder corresponding to cholelithiasis The kidneys demonstrate bilateral hydronephrosis and hydroureter with a markedly distended urinary bladder. Probable cystocele. There is perinephric haziness suggesting fluid versus less likely inflammation. There is no evidence for nephrolithiasis. Grossly the unopacified stomach, small bowel and large bowel demonstrate to be within normal limits. There is no evidence for bowel dilatation/or free air. There is diverticulosis within the left site colon The appendix is unremarkable. The uterus is absent The aorta demonstrate atherosclerotic disease. There is no retroperitoneal lymphadenopathy. There is no evidence for ascites. The bone windows demonstrate diffuse bony osteopenia. Superior endplate compression deformity at T12 and L1 as well as L3. Degenerative disc disease L4- S1 with posterior facet hypertrophy. IMPRESSION: Mild cerebral and cerebellar atrophy with minimal periventricular white matter changes of microvascular ischemia. No evidence for fracture or subluxation of the cervical spine. Degenerative changes as described above. Cholelithiasis. Bilateral hydronephrosis and hydroureter with a markedly distended urinary bladder with probable cystocele. There is perinephric haziness suggesting fluid versus less likely inflammation. Diverticulosis with no evidence for diverticulitis. Superior endplate compression deformity at T12 and L1 as well as L3. Atherosclerotic disease of the thoracic and abdominal aorta. EXAM DESCRIPTION: [facility] Single View10/26/2021 12:30 am CLINICAL HISTORY: Weakness COMPARISON: none FINDINGS: The lungs appear clear of acute infiltrate. The heart is normal size IMPRESSION: No acute abnormalities displayed Conclusions/Impression: DEMI likely due to hypovolemia with possible ATN Urinary retention with hydronephrosis & hydroureter CKD? -No NSAIDs -Continue IVF -Garza catheter Acute Hyponatremia -Continue IVF Hyperkalemia -Continue IVF Hypotension -Continue IVF Diastolic CHF, chronic -Daily weight DM II with CKD -Continue Lantus -RISS Thrombocytopenia -Transfuse Plts as ordered -Continue steroids COVID-19 PNA -Continue steroids -Continue Rocephin -Continue Oxygen supplementation Thank you kindly for the consultation. Case reviewed with Dr. Kidd Critical Care: Yes
[2021-10-26] MEDS ORDERED: INSULIN -REGULAR HUMAN 50 UNIT/0.5 ML ML SQ SCH (16:30)
[2021-10-26] MEDS: INSULIN -REGULAR HUMAN 50 UNIT/0.5 ML ML SQ SCH (21:00)
[2021-10-26] MEDS: INSULIN GLARGINE 100 UNIT/ML SQ SCH (21:00)
[2021-10-26] MEDS ORDERED: INSULIN GLARGINE 100 UNIT/ML SQ ONE (21:50)
[2021-10-26] MEDS: MORPHINE 2 MG/ML SYR IV PRN (22:03)
[2021-10-26 22:14] LABS: Folic Acid, (Folate) > 20.0 ng/mL (3.1-17.5)
[2021-10-27] MEDS: METHYLPREDNISOLONE 40 MG INJ IV SCH ×3 (00:55→21:50)
[2021-10-27] MEDS: NA CHLORIDE 0.9% 1,000 ML IV SCH ×2 (00:56→15:04)
[2021-10-27] MEDS ORDERED: NA CHLORIDE 0.9% 100 ML ONE (03:38)
--- NOTE | 2021-10-27 06:14 | P.PN ---
Subjective Date of Service: 10/27/21 Primary Care Provider: LUKAS Prakash Chief Complaint: Weakness and recurrent falls Subjective: Improving (Currently on 2 L per nasal cannula.) Physical Examination - Vital Signs Temperature: 97.6 F Blood Pressure: 142/67 Pulse: 88 Respirations: 16 Pulse Ox (%): 97 - Studies Microbiology Data (last 24 hrs): 10/26/21 00:37 Blood - Blood Anaerobic Blood Culture - Final Assessment & Plan Discharge Plan: Home Plan to discharge in: Greater than 2 days Physician Review Additional Text: COVID: Positive Unvaccinated Initial CXR: COMPARISON: none FINDINGS: The lungs appear clear of acute infiltrate. The heart is normal size IMPRESSION: No acute abnormalities displayed CT Head/Neck/Chest/AB/Pelvis: COMPARISON: None. FINDINGS: Multiple transaxial tomograms of the brain were obtained from the base of the skull to the vertex without contrast. 2-D multiplanar reformats and the coronal and sagittal plane were performed and reviewed. Multiple axial CT images through the cervical spine were obtained at 2 mm slice thickness at 2 mm interval reconstruction. In addition 2-D multiplanar reformats and the sagittal coronal plane were performed and reviewed. Multiple transaxial tomograms of the chest were obtained from the lung apices through the adrenal glands, utilizing 5 mm slice thickness at 5 mm interval reconstruction without the administration of IV contrast. Multiplanar reformats in the sagittal and coronal plane were generated and reviewed. Multiple transaxial tomograms of the abdomen and pelvis were performed from the lung bases to the symphysis pubis 5 mm slice thickness at 5 mm interval reconstruction, without administration of IV and oral contrast. Multiplanar reformats in the sagittal and coronal plane were generated and reviewed. This exam was performed according to our departmental dose-optimization protocol, which includes automated exposure control, adjustment of the mA and/or kV according to patient size and/or use of iterative reconstruction technique. CT brain: Brain parenchyma demonstrate mild prominence of the sulci and gyri are corresponding to mild cerebral and cerebellar atrophy. There is minimal periventricular white matter changes of microvascular ischemia. There is no midline shift and/or mass effect. There is no evidence for acute intracranial hemorrhage. Lateral ventricles and cisterns displace normal appearance. No intra or extra axial fluid collections were seen. The calvarium is intact with no evidence for fracture. The visualized portions of the paranasal sinuses and orbits demonstrate to be clear. CT C-spine: There is diffuse bony osteopenia. The alignment of the vertebral bodies are normal. There is no evidence of fracture or subluxation. There is degenerative very minimal disc disease with decreased intervertebral disc height, anterior spondylosis and posterior osteophyte complex at C5/C6. Also degenerative changes are seen within the anterior arch of C1 and dens. The spinal canal demonstrate no evidence for significant stenosis. Neural foramina demonstrate to be unremarkable. There are uncovertebral degenerative changes C2- C6. There is no prevertebral soft tissue swelling. Sagittal coronal reformatted images demonstrate no subluxation or bony abnormalities. CT chest: The lungs parenchyma demonstrate dependent atelectatic changes especially along the right lung base with mild elevation of the right hemidiaphragm. No significant masses and/or nodules are identified. The trachea mainstem bronchus demonstrate to be normal. There is no significant pleural and/or pericardial effusions. The heart is nonenlarged. There are mitral annular calcification. There are very minimal coronary artery calcifications. There is intimal thoracic aortic arch calcification. There is no significant mediastinal and/or hilar lymphadenopathy. The axillary regions demonstrate to be clear. The bone windows demonstrate mild diffuse bony osteopenia. Degenerative changes glenohumeral joint greater right than left. CT abdomen pelvis: Grossly the unopacified liver, pancreas, spleen and adrenal glands demonstrate to be within normal limits, no significant focal lesions were identified. Radiodensity within the fundus of the gallbladder corresponding to cholelithiasis The kidneys demonstrate bilateral hydronephrosis and hydroureter with a markedly distended urinary bladder. Probable cystocele. There is perinephric haziness suggesting fluid versus less likely inflammation. There is no evidence for nephrolithiasis. Grossly the unopacified stomach, small bowel and large bowel demonstrate to be within normal limits. There is no evidence for bowel dilatation/or free air. There is diverticulosis within the left site colon The appendix is unremarkable. The uterus is absent The aorta demonstrate atherosclerotic disease. There is no retroperitoneal lymphadenopathy. There is no evidence for ascites. The bone windows demonstrate diffuse bony osteopenia. Superior endplate compression deformity at T12 and L1 as well as L3. Degenerative disc disease L4- S1 with posterior facet hypertrophy. IMPRESSION: Mild cerebral and cerebellar atrophy with minimal periventricular white matter changes of microvascular ischemia. No evidence for fracture or subluxation of the cervical spine. Degenerative changes as described above. Cholelithiasis. Bilateral hydronephrosis and hydroureter with a markedly distended urinary bladder with probable cystocele. There is perinephric haziness suggesting fluid versus less likely inflammation. Diverticulosis with no evidence for diverticulitis. Superior endplate compression deformity at T12 and L1 as well as L3. Atherosclerotic disease of the thoracic and abdominal aorta. Renal US: COMPARISON: October 11, 2021 FINDINGS: The right kidney measures 10 cm with a normal echotexture. Small echogenic structure midpole The left kidney measures 9 cm with a normal echotexture. Hydronephrosis is not seen. A Garza catheter is present within a collapsed bladder. IMPRESSION: Small echogenic structure mid pole right kidney may represent a nonobstructing calculus Physical exam: General: Patient more alert and responsive. HEENT: Neck supple Respiratory: Clear to auscultation bilaterally, Normal air movement, currently on 2 L per nasal cannula Cardiovascular: No edema, Regular rate/rhythm, Normal S1 S2 Gastrointestinal: Normal bowel sounds, Soft and benign, Non-distended Musculoskeletal: No clubbing, No swelling Integumentary: No significant edema Neurological: Patient more alert today. Less lethargic Impression: Acute metabolic encephalopathy secondary to acute renal failure with hyponatremia, hyperkalemia COVID positive Nonketotic hyperosmolar Hyperglycemia with DM type 2 Acute on chronic thrombocytopenia History of breast cancer Leukocytosis Plan: Acute metabolic encephalopathy secondary to acute renal failure with hyponatremia, hyperkalemia: Patient has improved. Patient more alert and responsive. Renal function improved. Renal ultrasound shows no obstruction. Continue IV fluids. Patient on IV Rocephin. Blood cultures negative. Will discuss with nephrology. Recheck chest x-ray today. Wean off oxygen. Physical therapy to assess ambulation. Patient given platelets yesterday with improvement. Overall stable. COVID positive: We will check chest x-ray. Patient on IV antibiotic therapyRocephin. Consider discontinuing medication. Patient also on IV Solu- Medrol. Will discuss with pulmonology. Patient unvaccinated. Nonketotic hyperosmolar Hyperglycemia with DM type 2: Continue Accu-Cheks and sliding scale. Will start low-dose basal insulin and adjust. Hemoglobin A1c 11.2. Acute on chronic thrombocytopenia: Given 2 units of platelets yesterday. Peripheral smear shows no schistocytes. Likely reactive. Patient responding to IV steroids. Continue steroids for now. Will discuss with hematology. Patient is seen by [facility] in [place]. Patient to have bone marrow biopsy in the future. History of breast cancer: Patient is seen by [facility]. Leukocytosis: Etiology unclear. Improved. This may be related to Covid pneumonia and recent steroid use. Patient on Rocephin empirically. Consider discontinuing. Will discuss with team of physicians. CODE STATUS: This was discussed in detail with family. Patient is DO NOT RESUSCITATE. DVT prophylaxis: SCDs in place. No anticoagulation recommended due to thrombocytopenia. Advance care [id number] minutes: Overall improved. Anticipate home at discharge in the next 2 to 3 days. Time Spent Managing Pts Care (In Minutes): 55
[2021-10-27 06:44] LABS: Bilirubin Total 0.5 mg/dL (0.2-1.0); Phosphorus 3.4 mg/dL (2.5-4.9)
[2021-10-27 08:54] LABS: Absolute Lymphocytes (CBC) 0.9 K/uL (0.7-4.9); Hematocrit 30.7 % (36.0-45.0); Lymphocytes % 5.6 % (15.3-44.8); MPV 8.1 fL (7.6-11.3); RBC Red Blood Cell Count 3.52 M/uL (3.86-4.86)
[2021-10-27] MEDS: CEFTRIAXONE 1,000 MG in NA CHLORIDE 0.9% 50 ML IVPB SCH (09:00)
[2021-10-27 09:22] LABS: Albumin 2.4 g/dL (3.4-5.0); Magnesium 2.2 mg/dL (1.8-2.4); Protein, Total 5.3 g/dL (6.4-8.2); Uric Acid 6.3 mg/dL (2.6-6.0)
[2021-10-27] MEDS ORDERED: NA CHLORIDE 0.9% 50 ML ONE (09:26)
[2021-10-27] MEDS: INSULIN GLARGINE 100 UNIT/ML SQ SCH ×2 (09:44→21:50)
[2021-10-27] MEDS: CEFTRIAXONE 1000 MG/VIAL ONE ×2 (09:46→09:48)
[2021-10-27] MEDS: INSULIN -REGULAR HUMAN 50 UNIT/0.5 ML ML SQ SCH ×4 (09:46→21:50)
[2021-10-27] MEDS: FAMOTIDINE 20 MG/2 ML VIAL IV SCH (09:46)
[2021-10-27] MEDS: MORPHINE 2 MG/ML SYR IV PRN (09:47)
[2021-10-27] MEDS: FOLIC ACID 1 MG in NA CHLORIDE 0.9% 50 ML IV SCH (09:47)
[2021-10-27] MEDS: THIAMINE 200 MG/2 ML INJ IVP SCH (09:48)
--- NOTE | 2021-10-27 11:52 | ECHO ---
HEIGHT: 5 ft 3 in WEIGHT: 143 lb 0 oz DATE OF STUDY: 10/26/[address]: Chikis Smith MD 2-DIMENSIONAL: YES M.MODE: YES DOPPLER: YES COLOR FLOW: YES TDS: PORTABLE: YES DEFINITY: BUBBLE STUDY: DIAGNOSIS: CEREBRAL VASCULAR ACCIDENT, RULE OUT VEGETATION CARDIAC HISTORY: CATHERIZATION: NO SURGERY: NO PROSTHETIC VALVE: NO PACEMAKER: NO MEASUREMENTS (cm) DIASTOLIC (NORMALS) SYSTOLIC (NORMALS) IVSd 1.1 (0.6-1.2) LA Diam 3.0 (1.9-4.0) LVEF 83% LVIDd 3.6 (3.5-5.7) LVIDs 1.8 (2.0-3.5) %FS 51% LVPWd 1.3 (0.6-1.2) Ao Diam 2.2 (2.0-3.7) 2 DIMENSIONAL ASSESSMENT: RIGHT ATRIUM: NORMAL LEFT ATRIUM: NORMAL RIGHT VENTRICLE: NORMAL LEFT VENTRICLE: NORMAL TRICUSPID VALVE: NORMAL MITRAL VALVE: MITRAL STENOSIS PULMONIC VALVE: NORMAL AORTIC VALVE: AORTIC STENOSIS PERICARDIAL EFFUSION: NONE AORTIC ROOT: NORMAL LEFT VENTRICULAR WALL MOTION: NORMAL DOPPLER/COLOR FLOW: MILD AORTIC STENOSIS, MITRAL STENOSIS BOTH 1.7 CENTIMETERS SQUARED. COMMENTS: MILD AORTIC STENOSIS - 1.7 CENTIMETERS SQUARED. MILD MITRAL STENOSIS - 1.7 CENTIMETERS SQUARED. NORMAL EJECTION FRACTION. MILD TRICUSPID REGURGITATION. NORMAL RIGHT VENTRICULAR SYSTOLIC PRESSURE. TECHNOLOGIST: TAMIA YATES
--- NOTE | 2021-10-27 11:59 | RAD REPORT ---
EXAM DESCRIPTION: RAD - Chest Single View - 10/27/2021 11:50 am CLINICAL HISTORY: follow up COVID COMPARISON: Chest Single View dated 10/26/2021 FINDINGS: Lines: None. Lungs: Mild increased basilar airspace disease and right mid lung opacities. Pleural: No significant pleural effusions or pneumothorax. Cardiac: The heart size is within normal limits. Bones: No acute fractures. Other: IMPRESSION: Increased mild basilar and right mid lung opacities could reflect atelectasis and/or pne umonia.
--- NOTE | 2021-10-27 15:29 | P.PN ---
Subjective Date of Service: 10/27/21 Primary Care Provider: LUKAS Prakash Chief Complaint: Weakness and recurrent falls Subjective: Improving (Much better alert) Review of Systems General: Weakness Physical Examination - Vital Signs Temperature: 98.4 F Blood Pressure: 172/78 Pulse: 75 Respirations: 20 Pulse Ox (%): 100 - Physical Exam General: Alert, In no apparent distress, Oriented x3 Respiratory: Clear to auscultation bilaterally - Studies Microbiology Data (last 24 hrs): 10/26/21 00:37 Blood - Blood Anaerobic Blood Culture - Final Assessment & Plan - Problems (Diagnosis) (1) COVID-19 virus RNA test result positive at limit of detection Current Visit: Yes Status: Acute Plan: Pt is improving renal function better more alert and responsive. LAbs rev. Platelet count > 60 KCultures neg, Smeat no schistocytes, LDH normal. D Dimer elevated. Reduce steroids CW IF fluids/ WBC declining
--- NOTE | 2021-10-27 21:31 | P.PN ---
Date of Service: 10/27/21 Vital Signs Temp Pulse Resp BP Pulse Ox 98.7 F 68 20 142/68 H 100 10/27/21 16:00 10/27/21 16:00 10/27/21 16:00 10/27/21 16:00 10/27/21 16:00 Medications Dextrose (D50w 25 Gm/50 Ml Syringe) 12.5 gm IV PRN PRN; Protocol PRN Reason: HYPOGLYCEMIA Famotidine (Famotidine 20 Mg Tab) 20 mg PO DAILY [facility]; Protocol Folic Acid (Folic Acid 1 Mg Tablet) 1 mg PO DAILY [facility] Glucagon (Glucagon 1 Mg/Vial) 1 mg IM 1X PRN; Protocol PRN Reason: HYPOGLYCEMIA Guaifenesin (Guaifenesin 100 Mg/5 Ml Ucup) 200 mg PO QID PRN PRN Reason: COUGH Hydralazine HCl (Hydralazine Hcl 20 Mg/Ml Vial) 10 mg IV Q6HP PRN PRN Reason: Titrate to SBP (MUST DEFINE) Ceftriaxone Sodium 1,000 mg/ (Sodium Chloride) 50 mls @ 100 mls/hr IVPB DAILY [facility]; Protocol Last Admin: 10/27/21 09:00 Dose: 50 mls Documented by: Sodium Chloride (Ns 1000 Ml Ivbag) 1,000 mls @ 100 mls/hr IV .Q10H [facility] Last Admin: 10/27/21 15:04 Dose: 1,000 mls Documented by: Insulin Glargine (Insulin Glargine 100 Unit/Ml) 15 unit SQ BID [facility] Last Admin: 10/27/21 09:44 Dose: 15 unit Documented by: Insulin Human Regular (Insulin -Regular Human 50 Unit/0.5 Ml Ml) 0 unit SQ ACHS [facility]; Protocol Last Admin: 10/27/21 16:15 Dose: 10 unit Documented by: Methylprednisolone Sodium Succinate (Methylprednisolone 40 Mg Inj) 40 mg IV Q12HR [facility] Morphine Sulfate (Morphine 2 Mg/Ml Syr) 2 mg IV Q4H PRN PRN Reason: Pain scale 8-10 (Severe) Last Admin: 10/27/21 09:47 Dose: 2 mg Documented by: Ondansetron HCl (Ondansetron 4 Mg/2 Ml Vial) 4 mg IV Q8H PRN PRN Reason: NAUSEA / VOMITING Sodium Chloride (Flush Normal Saline 10 Ml) 10 ml IV BID [facility] Last Admin: 10/27/21 09:00 Dose: 10 ml Documented by: Thiamine HCl (Thiamine Hcl 100 Mg Tablet) 100 mg PO DAILY [facility] Microbiology Results 10/26/21 00:20 Blood - Blood Aerobic Blood Culture - Preliminary No growth in 24 hours. 10/26/21 00:20 Blood - Blood Anaerobic Blood Culture - Preliminary No growth in 24 hours. 10/26/21 00:37 Blood - Blood Aerobic Blood Culture - Preliminary No growth in 24 hours. 10/26/21 00:37 Blood - Blood Anaerobic Blood Culture - Final Assessment/ Plan: Nephrology No dyspnea No chest pain Feeling better today No acute events overnight Vitals, medications, blood work and imaging reviewed in the chart General: Cooperative, Mild distress HEENT: Atraumatic Neck: Supple Respiratory: Clear to auscultation bilaterally Cardiovascular: No edema, Regular rate/rhythm Gastrointestinal: Non-distended Musculoskeletal: No clubbing, No contractures Integumentary: No rashes, No cyanosis Laboratory Data (last 24 hrs) 10/26/21 00:20: PT 10.7, INR 0.93 10/26/21 00:20: WBC 21.30 H*, Hgb 13.2, Hct 42.3, Plt Count 9 L* 10/26/21 00:20: Sodium 118 L*, Potassium 5.7 H*, BUN 62 H, Creatinine 4.51 H, Glucose 1152 H*, Magnesium 2.3, Total Bilirubin 0.9, AST 17, ALT 24, Alkaline Phosphatase 71 Imagings Data: EXAM DESCRIPTION: US - Renal Ultrasound-Complete - 10/26/2021 6:11 am CLINICAL HISTORY: Acute renal failure COMPARISON: October 11, 2021 FINDINGS: The right kidney measures 10 cm with a normal echotexture. Small echogenic structure midpole The left kidney measures 9 cm with a normal echotexture. Hydronephrosis is not seen. A Garza catheter is present within a collapsed bl adder. IMPRESSION: Small echogenic structure mid pole right kidney may represent a nonobstructing calculus EXAM DESCRIPTION: CT - Head C Spine Cap Wo Con - 10/26/2021 6:22 am CLINICAL HISTORY: 75 years, Female, ABD PAIN COMPARISON: None. FINDINGS: Multiple transaxial tomograms of the brain were obtained from the base of the skull to the vertex without contrast. 2-D multiplanar reformats and the coronal and sagittal plane were performed and reviewed. Multiple axial CT images through the cervical spine were obtained at 2 mm slice thickness at 2 mm interval reconstruction. In addition 2-D multiplanar reformats and the sagittal coronal plane were performed and reviewed. Multiple transaxial tomograms of the chest were obtained from the lung apices through the adrenal glands, utilizing 5 mm slice thickness at 5 mm interval reconstruction without the administration of IV contrast. Multiplanar reformats in the sagittal and coronal plane were generated and reviewed. Multiple transaxial tomograms of the abdomen and pelvis were performed from the lung bases to the symphysis pubis 5 mm slice thickness at 5 mm interval reconstruction, without administration of IV and oral contrast. Multiplanar reformats in the sagittal and coronal plane were generated and reviewed. This exam was performed according to our departmental dose-optimization protocol, which includes automated exposure control, adjustment of the mA and/or kV according to patient size and/or use of iterative reconstruction technique. CT brain: Brain parenchyma demonstrate mild prominence of the sulci and gyri are corresponding to mild cerebral and cerebellar atrophy. There is minimal periventricular white matter changes of microvascular ischemia. There is no midline shift and/or mass effect. There is no evidence for acute intracranial hemorrhage. Lateral ventricles and cisterns displace normal appearance. No intra or extra axial fluid collections were seen. The calvarium is intact with no evidence for fracture. The visualized portions of the paranasal sinuses and orbits demonstrate to be clear. CT C-spine: There is diffuse bony osteopenia. The alignment of the vertebral bodies are normal. There is no evidence of fracture or subluxation. There is degenerative very minimal disc disease with decreased intervertebral disc height, anterior spondylosis and posterior osteophyte complex at C5/C6. Also degenerative changes are seen within the anterior arch of C1 and dens. The spinal canal demonstrate no evidence for significant stenosis. Neural foramina demonstrate to be unremarkable. There are uncovertebral degenerative changes C2- C6. There is no prevertebral soft tissue swelling. Sagittal coronal reformatted images demonstrate no subluxation or bony abnormalities. CT chest: The lungs parenchyma demonstrate dependent atelectatic changes especially along the right lung base with mild elevation of the right hemidiaphragm. No significant masses and/or nodules are identified. The trachea mainstem bronchus demonstrate to be normal. There is no significant pleural and/or pericardial effusions. The heart is nonenlarged. There are mitral annular calcification. There are very minimal coronary artery calcifications. There is intimal thoracic aortic arch calcification. There is no significant mediastinal and/or hilar lymphadenopathy. The axillary regions demonstrate to be clear. The bone windows demonstrate mild diffuse bony osteopenia. Degenerative changes glenohumeral joint greater right than left. CT abdomen pelvis: Grossly the unopacified liver, pancreas, spleen and adrenal glands demonstrate to be within normal limits, no significant focal lesions were identified. Radiodensity within the fundus of the gallbladder corresponding to cholelithiasis The kidneys demonstrate bilateral hydronephrosis and hydroureter with a markedly distended urinary bladder. Probable cystocele. There is perinephric haziness suggesting fluid versus less likely inflammation. There is no evidence for nephrolithiasis. Grossly the unopacified stomach, small bowel and large bowel demonstrate to be within normal limits. There is no evidence for bowel dilatation/or free air. There is diverticulosis within the left site colon The appendix is unremarkable. The uterus is absent The aorta demonstrate atherosclerotic disease. There is no retroperitoneal lymphadenopathy. There is no evidence for ascites. The bone windows demonstrate diffuse bony osteopenia. Superior endplate compression deformity at T12 and L1 as well as L3. Degenerative disc disease L4- S1 with posterior facet hypertrophy. IMPRESSION: Mild cerebral and cerebellar atrophy with minimal periventricular white matter changes of microvascular ischemia. No evidence for fracture or subluxation of the cervical spine. Degenerative changes as described above. Cholelithiasis. Bilateral hydronephrosis and hydroureter with a markedly distended urinary bladder with probable cystocele. There is perinephric haziness suggesting fluid versus less likely inflammation. Diverticulosis with no evidence for diverticulitis. Superior endplate compression deformity at T12 and L1 as well as L3. Atherosclerotic disease of the thoracic and abdominal aorta. EXAM DESCRIPTION: [facility] Single View10/26/2021 12:30 am CLINICAL HISTORY: Weakness COMPARISON: none FINDINGS: The lungs appear clear of acute infiltrate. The heart is normal size IMPRESSION: No acute abnormalities displayed Conclusions/Impression: DEMI likely due to hypovolemia with possible ATN Urinary retention with hydronephrosis & hydroureter CKD? -No NSAIDs -Continue IVF -Garza catheter Acute Hyponatremia -Continue IVF Hyperkalemia -Continue IVF Hypotension -Continue IVF Diastolic CHF, chronic -Daily weight DM II with CKD -Continue Lantus -RISS Thrombocytopenia -Transfuse Plts prn -Continue steroids COVID-19 PNA -Continue steroids -Continue Rocephin -Continue Oxygen supplementation
[2021-10-27] MEDS: MELATONIN 5 MG TABLET PO PRN (22:24)
--- NOTE | 2021-10-28 05:48 | P.PN ---
Subjective Date of Service: 10/28/21 Primary Care Provider: LUKAS Prakash Chief Complaint: Weakness and recurrent falls Subjective: Improving (Currently on 2 L) Physical Examination - Vital Signs Temperature: 97.7 F Blood Pressure: 143/68 Pulse: 60 Respirations: 18 Pulse Ox (%): 98 - Studies Microbiology Data (last 24 hrs): 10/26/21 00:37 Blood - Blood Anaerobic Blood Culture - Final Assessment & Plan Discharge Plan: Home Plan to discharge in: 48 Hours Physician Review Additional Text: COVID: Positive Unvaccinated Initial CXR: COMPARISON: none FINDINGS: The lungs appear clear of acute infiltrate. The heart is normal size IMPRESSION: No acute abnormalities displayed CT Head/Neck/Chest/AB/Pelvis: COMPARISON: None. FINDINGS: Multiple transaxial tomograms of the brain were obtained from the base of the skull to the vertex without contrast. 2-D multiplanar reformats and the coronal and sagittal plane were performed and reviewed. Multiple axial CT images through the cervical spine were obtained at 2 mm slice thickness at 2 mm interval reconstruction. In addition 2-D multiplanar reformats and the sagittal coronal plane were performed and reviewed. Multiple transaxial tomograms of the chest were obtained from the lung apices through the adrenal glands, utilizing 5 mm slice thickness at 5 mm interval reconstruction without the administration of IV contrast. Multiplanar reformats in the sagittal and coronal plane were generated and reviewed. Multiple transaxial tomograms of the abdomen and pelvis were performed from the lung bases to the symphysis pubis 5 mm slice thickness at 5 mm interval reconstruction, without administration of IV and oral contrast. Multiplanar reformats in the sagittal and coronal plane were generated and reviewed. This exam was performed according to our departmental dose-optimization protocol, which includes automated exposure control, adjustment of the mA and/or kV according to patient size and/or use of iterative reconstruction technique. CT brain: Brain parenchyma demonstrate mild prominence of the sulci and gyri are corresponding to mild cerebral and cerebellar atrophy. There is minimal periventricular white matter changes of microvascular ischemia. There is no midline shift and/or mass effect. There is no evidence for acute intracranial hemorrhage. Lateral ventricles and cisterns displace normal appearance. No intra or extra axial fluid collections were seen. The calvarium is intact with no evidence for fracture. The visualized portions of the paranasal sinuses and orbits demonstrate to be clear. CT C-spine: There is diffuse bony osteopenia. The alignment of the vertebral bodies are normal. There is no evidence of fracture or subluxation. There is degenerative very minimal disc disease with decreased intervertebral disc height, anterior spondylosis and posterior osteophyte complex at C5/C6. Also degenerative changes are seen within the anterior arch of C1 and dens. The spinal canal demonstrate no evidence for significant stenosis. Neural foramina demonstrate to be unremarkable. There are uncovertebral degenerative changes C2- C6. There is no prevertebral soft tissue swelling. Sagittal coronal reformatted images demonstrate no subluxation or bony abnormalities. CT chest: The lungs parenchyma demonstrate dependent atelectatic changes especially along the right lung base with mild elevation of the right hemidiaphragm. No significant masses and/or nodules are identified. The trachea mainstem bronchus demonstrate to be normal. There is no significant pleural and/or pericardial effusions. The heart is nonenlarged. There are mitral annular calcification. There are very minimal coronary artery calcifications. There is intimal thoracic aortic arch calcification. There is no significant mediastinal and/or hilar lymphadenopathy. The axillary regions demonstrate to be clear. The bone windows demonstrate mild diffuse bony osteopenia. Degenerative changes glenohumeral joint greater right than left. CT abdomen pelvis: Grossly the unopacified liver, pancreas, spleen and adrenal glands demonstrate to be within normal limits, no significant focal lesions were identified. Radiodensity within the fundus of the gallbladder corresponding to cholelithiasis The kidneys demonstrate bilateral hydronephrosis and hydroureter with a markedly distended urinary bladder. Probable cystocele. There is perinephric haziness suggesting fluid versus less likely inflammation. There is no evidence for nephrolithiasis. Grossly the unopacified stomach, small bowel and large bowel demonstrate to be within normal limits. There is no evidence for bowel dilatation/or free air. There is diverticulosis within the left site colon The appendix is unremarkable. The uterus is absent The aorta demonstrate atherosclerotic disease. There is no retroperitoneal lymphadenopathy. There is no evidence for ascites. The bone windows demonstrate diffuse bony osteopenia. Superior endplate compression deformity at T12 and L1 as well as L3. Degenerative disc disease L4- S1 with posterior facet hypertrophy. IMPRESSION: Mild cerebral and cerebellar atrophy with minimal periventricular white matter changes of microvascular ischemia. No evidence for fracture or subluxation of the cervical spine. Degenerative changes as described above. Cholelithiasis. Bilateral hydronephrosis and hydroureter with a markedly distended urinary bladder with probable cystocele. There is perinephric haziness suggesting fluid versus less likely inflammation. Diverticulosis with no evidence for diverticulitis. Superior endplate compression deformity at T12 and L1 as well as L3. Atherosclerotic disease of the thoracic and abdominal aorta. Renal US: COMPARISON: October 11, 2021 FINDINGS: The right kidney measures 10 cm with a normal echotexture. Small echogenic structure midpole The left kidney measures 9 cm with a normal echotexture. Hydronephrosis is not seen. A Garza catheter is present within a collapsed bladder. IMPRESSION: Small echogenic structure mid pole right kidney may represent a nonobstructing calculus Follow up CXR 10/27/2021: COMPARISON: Chest Single View dated 10/26/2021 FINDINGS: Lines: None. Lungs: Mild increased basilar airspace disease and right mid lung opacities. Pleural: No significant pleural effusions or pneumothorax. Cardiac: The heart size is within normal limits. Bones: No acute fractures. IMPRESSION: Increased mild basilar and right mid lung opacities could reflect atelectasis and/or pneumonia. Physical exam: General: Patient more alert and responsive. HEENT: Neck supple Respiratory: Clear to auscultation bilaterally, Normal air movement, currently on 2 L per nasal cannula Cardiovascular: No edema, Regular rate/rhythm, Normal S1 S2 Gastrointestinal: Normal bowel sounds, Soft and benign, Non-distended Musculoskeletal: No clubbing, No swelling Integumentary: No significant edema Neurological: Patient appears improved and more alert. Impression: Acute metabolic encephalopathy secondary to acute renal failure with hyponatremia, hyperkalemia COVID positive Nonketotic hyperosmolar Hyperglycemia with DM type 2 Acute on chronic thrombocytopenia History of breast cancer Leukocytosis Plan: Acute metabolic encephalopathy secondary to acute renal failure with hyponatremia, hyperkalemia: Patient continues to improve. Renal function close to baseline. Continue IV fluids. Blood cultures negative. Patient remains on IV Rocephin for possible underlying pneumonia. Continue IV steroids for her thrombocytopenia. Physical therapy to assess ambulation. Patient and family desire for patient to go home at discharge. May require home oxygen at discharge. Likely home in the next 1 to 2 days. Will discuss case further with nephrology and pulmonology. COVID positive: Continue with IV Rocephin to cover for possible pneumonia. Recheck chest x-ray today. Continue IV Solu-Medrol. Will discuss with pulmonology. Continue to wean off oxygen to maintain sats above 93%. Physical therapy to ambulate. Nonketotic hyperosmolar Hyperglycemia with DM type 2: Continue Accu-Cheks and sliding scale. Continue to adjust basal insulin. Hemoglobin A1c 11.2. Acute on chronic thrombocytopenia: Patient given given 2 units of platelets the prior day. Peripheral smear shows no schistocytes. Likely reactive. Patient responding to IV steroids. Continue steroids for now. Will discuss with hematology. Patient is seen by [place] [facility] in [place]. Patient to have bone marrow biopsy in the future. History of breast cancer: Patient is seen by [place] [facility]. Leukocytosis: Etiology unclear but may be related to Covid pneumonia and recent steroid use. Continue with IV Rocephin for now. Will discuss with pulmonology. Recheck chest x-ray. CODE STATUS: This was discussed in detail with family. Patient is DO NOT RESUSCITATE. DVT prophylaxis: SCDs in place. No anticoagulation recommended due to thrombocytopenia. Advance care [id number] minutes: Home at discharge in the next 1 to 2 days. Will make arrangements for home health and physical therapy and likely home oxygen. Patient will need a new PCP in the area and likely oncology in the area Time Spent Managing Pts Care (In Minutes): 55
[2021-10-28 06:08] LABS: Absolute Lymphocytes (CBC) 1.2 K/uL (0.7-4.9)
[2021-10-28 06:11] LABS: Hematocrit 30.1 % (36.0-45.0); Lymphocytes % 6.7 % (15.3-44.8); MPV 12.2 fL (7.6-11.3); RBC Red Blood Cell Count 3.55 M/uL (3.86-4.86)
[2021-10-28 06:25] LABS: Albumin 2.1 g/dL (3.4-5.0); Bilirubin Total 0.4 mg/dL (0.2-1.0); C-Reactive Protein 20.2 mg/L (<3.00); Ferritin 256.4 ng/mL (8-388); Potassium 4.7 mmol/L (3.5-5.1); Protein, Total 4.9 g/dL (6.4-8.2)
[2021-10-28 06:43] LABS: Platelet Estimate DECR; White Blood Cell Scan OK (OK)
[2021-10-28 06:44] LABS: Blood Morphology Comment NOT SEEN (NOT SEEN)
[2021-10-28] MEDS: INSULIN -REGULAR HUMAN 50 UNIT/0.5 ML ML SQ SCH ×4 (07:30→20:41)
[2021-10-28] MEDS: FOLIC ACID 1 MG TABLET PO SCH (08:17)
[2021-10-28] MEDS: THIAMINE HCL 100 MG TABLET PO SCH ×2 (08:17→08:18)
[2021-10-28] MEDS: CEFTRIAXONE 1,000 MG in NA CHLORIDE 0.9% 50 ML IVPB SCH (08:18)
[2021-10-28] MEDS: FAMOTIDINE 20 MG TAB PO SCH (08:18)
[2021-10-28] MEDS: METHYLPREDNISOLONE 40 MG INJ IV SCH ×2 (08:19→20:42)
[2021-10-28] MEDS: INSULIN GLARGINE 100 UNIT/ML SQ SCH ×3 (09:00→20:42)
[2021-10-28] MEDS: NA CHLORIDE 0.9% 1,000 ML IV SCH ×3 (10:00→20:00)
--- NOTE | 2021-10-28 10:47 | RAD REPORT ---
EXAM DESCRIPTION: [facility] Single View10/28/2021 10:42 am CLINICAL HISTORY: Chest pain COMPARISON: October 26, 2020 FINDINGS: No change in mild bilateral pulmonary opacities. Heart is mildly enlarged IMPRESSION: No change in mild bilateral pulmonary opacities which may represent pneumonia
[2021-10-28] MEDS: HYDRALAZINE HCL 20 MG/ML VIAL IV PRN (13:48)
[2021-10-28] MEDS ORDERED: ACETAMINOPHEN 325 MG TABLET PO ONE (19:42)
[2021-10-28] MEDS ORDERED: ACETAMINOPHEN 500 MG TAB PO PRN (19:42)
--- NOTE | 2021-10-28 20:24 | P.PN ---
Date of Service: 10/28/21 Vital Signs Temp Pulse Resp BP Pulse Ox 100.2 F 101 H 16 136/60 95 10/28/21 20:00 10/28/21 20:00 10/28/21 20:00 10/28/21 20:00 10/28/21 20:00 Medications Acetaminophen (Acetaminophen 500 Mg Tab) 500 mg PO Q6H PRN PRN Reason: TEMP > 100' F Dextrose (D50w 25 Gm/50 Ml Syringe) 12.5 gm IV PRN PRN; Protocol PRN Reason: HYPOGLYCEMIA Famotidine (Famotidine 20 Mg Tab) 20 mg PO DAILY [facility]; Protocol Last Admin: 10/28/21 08:18 Dose: 20 mg Documented by: Folic Acid (Folic Acid 1 Mg Tablet) 1 mg PO DAILY [facility] Last Admin: 10/28/21 08:17 Dose: 1 mg Documented by: Glucagon (Glucagon 1 Mg/Vial) 1 mg IM 1X PRN; Protocol PRN Reason: HYPOGLYCEMIA Guaifenesin (Guaifenesin 100 Mg/5 Ml Ucup) 200 mg PO QID PRN PRN Reason: COUGH Hydralazine HCl (Hydralazine Hcl 20 Mg/Ml Vial) 10 mg IV Q6HP PRN PRN Reason: Titrate to SBP (MUST DEFINE) Last Admin: 10/28/21 13:48 Dose: 10 mg Documented by: Ceftriaxone Sodium 1,000 mg/ (Sodium Chloride) 50 mls @ 100 mls/hr IVPB DAILY [facility]; Protocol Last Admin: 10/28/21 08:18 Dose: 50 mls Documented by: Sodium Chloride (Ns 1000 Ml Ivbag) 1,000 mls @ 100 mls/hr IV .Q10H [facility] Last Admin: 10/28/21 20:00 Dose: 1,000 mls Documented by: Insulin Glargine (Insulin Glargine 100 Unit/Ml) 10 unit SQ BID [place] Last Admin: 10/28/21 11:44 Dose: 10 unit Documented by: Insulin Human Regular (Insulin -Regular Human 50 Unit/0.5 Ml Ml) 0 unit SQ ACHS [facility]; Protocol Last Admin: 10/28/21 16:55 Dose: 10 unit Documented by: Melatonin (Melatonin 5 Mg Tablet) 5 mg PO BEDTIME PRN PRN PRN Reason: INSOMNIA Last Admin: 10/27/21 22:24 Dose: 5 mg Documented by: Methylprednisolone Sodium Succinate (Methylprednisolone 40 Mg Inj) 40 mg IV Q12HR [facility] Last Admin: 10/28/21 08:19 Dose: 40 mg Documented by: Morphine Sulfate (Morphine 2 Mg/Ml Syr) 2 mg IV Q4H PRN PRN Reason: Pain scale 8-10 (Severe) Last Admin: 10/27/21 09:47 Dose: 2 mg Documented by: Ondansetron HCl (Ondansetron 4 Mg/2 Ml Vial) 4 mg IV Q8H PRN PRN Reason: NAUSEA / VOMITING Sodium Chloride (Flush Normal Saline 10 Ml) 10 ml IV BID [facility] Last Admin: 10/28/21 08:18 Dose: 10 ml Documented by: Thiamine HCl (Thiamine Hcl 100 Mg Tablet) 100 mg PO DAILY [facility] Last Admin: 10/28/21 08:18 Dose: 100 mg Documented by: Microbiology Results 10/26/21 00:20 Blood - Blood Aerobic Blood Culture - Preliminary No growth in 24 hours. 10/26/21 00:20 Blood - Blood Anaerobic Blood Culture - Preliminary No growth in 24 hours. 10/26/21 00:37 Blood - Blood Aerobic Blood Culture - Preliminary No growth in 24 hours. 10/26/21 00:37 Blood - Blood Anaerobic Blood Culture - Final Assessment/ Plan: Nephrology No dyspnea No chest pain Feeling better today No acute events overnight Vitals, medications, blood work and imaging reviewed in the chart General: Cooperative, Mild distress HEENT: Atraumatic Neck: Supple Respiratory: Clear to auscultation bilaterally Cardiovascular: No edema, Regular rate/rhythm Gastrointestinal: Non-distended Musculoskeletal: No clubbing, No contractures Integumentary: No rashes, No cyanosis Laboratory Data (last 24 hrs) 10/26/21 00:20: PT 10.7, INR 0.93 10/26/21 00:20: WBC 21.30 H*, Hgb 13.2, Hct 42.3, Plt Count 9 L* 10/26/21 00:20: Sodium 118 L*, Potassium 5.7 H*, BUN 62 H, Creatinine 4.51 H, Glucose 1152 H*, Magnesium 2.3, Total Bilirubin 0.9, AST 17, ALT 24, Alkaline Phosphatase 71 Imagings Data: EXAM DESCRIPTION: US - Renal Ultrasound-Complete - 10/26/2021 6:11 am CLINICAL HISTORY: Acute renal failure COMPARISON: October 11, 2021 FINDINGS: The right kidney measures 10 cm with a normal echotexture. Small echogenic structure midpole The left kidney measures 9 cm with a normal echotexture. Hydronephrosis is not seen. A Garza catheter is present within a collapsed bladder. IMPRESSION: Small echogenic structure mid pole right kidney may represent a nonobstructing calculus EXAM DESCRIPTION: CT - Head C Spine Cap Wo Con - 10/26/2021 6:22 am CLINICAL HISTORY: 75 years, Female, ABD PAIN COMPARISON: None. FINDINGS: Multiple transaxial tomograms of the brain were obtained from the base of the skull to the vertex without contrast. 2-D multiplanar reformats and the coronal and sagittal plane were performed and reviewed. Multiple axial CT images through the cervical spine were obtained at 2 mm slice thickness at 2 mm interval reconstruction. In addition 2-D multiplanar reformats and the sagittal coronal plane were performed and reviewed. Multiple transaxial tomograms of the chest were obtained from the lung apices through the adrenal glands, utilizing 5 mm slice thickness at 5 mm interval reconstruction without the administration of IV contrast. Multiplanar reformats in the sagittal and coronal plane were generated and reviewed. Multiple transaxial tomograms of the abdomen and pelvis were performed from the lung bases to the symphysis pubis 5 mm slice thickness at 5 mm interval reconstruction, without administration of IV and oral contrast. Multiplanar reformats in the sagittal and coronal plane were generated and reviewed. This exam was performed according to our departmental dose-optimization protocol, which includes automated exposure control, adjustment of the mA and/or kV according to patient size and/or use of iterative reconstruction technique. CT brain: Brain parenchyma demonstrate mild prominence of the sulci and gyri are corresponding to mild cerebral and cerebellar atrophy. There is minimal periventricular white matter changes of microvascular ischemia. There is no midline shift and/or mass effect. There is no evidence for acute intracranial hemorrhage. Lateral ventricles and cisterns displace normal appearance. No intra or extra axial fluid collections were seen. The calvarium is intact with no evidence for fracture. The visualized portions of the paranasal sinuses and orbits demonstrate to be clear. CT C-spine: There is diffuse bony osteopenia. The alignment of the vertebral bodies are normal. There is no evidence of fracture or subluxation. There is degenerative very minimal disc disease with decreased intervertebral disc height, anterior spondylosis and posterior osteophyte complex at C5/C6. Also degenerative changes are seen within the anterior arch of C1 and dens. The spinal canal demonstrate no evidence for significant stenosis. Neural foramina demonstrate to be unremarkable. There are uncovertebral degenerative changes C2- C6. There is no prevertebral soft tissue swelling. Sagittal coronal reformatted images demonstrate no subluxation or bony abnormalities. CT chest: The lungs parenchyma demonstrate dependent atelectatic changes especially along the right lung base with mild elevation of the right hemidiaphragm. No significant masses and/or nodules are identified. The trachea mainstem bronchus demonstrate to be normal. There is no significant ple ural and/or pericardial effusions. The heart is nonenlarged. There are mitral annular calcification. There are very minimal coronary artery calcifications. There is intimal thoracic aortic arch calcification. There is no significant mediastinal and/or hilar lymphadenopathy. The axillary regions demonstrate to be clear. The bone windows demonstrate mild diffuse bony osteopenia. Degenerative changes glenohumeral joint greater right than left. CT abdomen pelvis: Grossly the unopacified liver, pancreas, spleen and adrenal glands demonstrate to be within normal limits, no significant focal lesions were identified. Radiodensity within the fundus of the gallbladder corresponding to cholelithiasis The kidneys demonstrate bilateral hydronephrosis and hydroureter with a markedly distended urinary bladder. Probable cystocele. There is perinephric haziness suggesting fluid versus less likely inflammation. There is no evidence for nephrolithiasis. Grossly the unopacified stomach, small bowel and large bowel demonstrate to be within normal limits. There is no evidence for bowel dilatation/or free air. There is diverticulosis within the left site colon The appendix is unremarkable. The uterus is absent The aorta demonstrate atherosclerotic disease. There is no retroperitoneal lymphadenopathy. There is no evidence for ascites. The bone windows demonstrate diffuse bony osteopenia. Superior endplate compression deformity at T12 and L1 as well as L3. Degenerative disc disease L4- S1 with posterior facet hypertrophy. IMPRESSION: Mild cerebral and cerebellar atrophy with minimal periventricular white matter changes of microvascular ischemia. No evidence for fracture or subluxation of the cervical spine. Degenerative changes as described above. Cholelithiasis. Bilateral hydronephrosis and hydroureter with a markedly distended urinary bladder with probable cystocele. There is perinephric haziness suggesting fluid versus less likely inflammation. Diverticulosis with no evidence for diverticulitis. Superior endplate compression deformity at T12 and L1 as well as L3. Atherosclerotic disease of the thoracic and abdominal aorta. EXAM DESCRIPTION: [facility] Single View10/26/2021 12:30 am CLINICAL HISTORY: Weakness COMPARISON: none FINDINGS: The lungs appear clear of acute infiltrate. The heart is normal size IMPRESSION: No acute abnormalities displayed Conclusions/Impression: DEMI likely due to hypovolemia with possible ATN Urinary retention with hydronephrosis & hydroureter CKD? -No NSAIDs -Continue IVF -Voiding trial today; monitor PVR Acute Hyponatremia -Continue IVF Hyperkalemia -Continue IVF Hypotension -Continue IVF Diastolic CHF, chronic -Daily weight DM II with CKD -Continue Lantus -RISS Thrombocytopenia -Transfuse Plts prn -Continue steroids COVID-19 PNA -Continue steroids -Continue Rocephin -Continue Oxygen supplementation
[2021-10-28] MEDS: MELATONIN 5 MG TABLET PO PRN (20:43)
[2021-10-28 23:49] LABS: Urine Appearance CLEAR (Clear); Urine Bilirubin NEGATIVE (Negative); Urine Blood 2+ (Negative); Urine Color YELLOW (Yellow); Urine Glucose 3+ (Negative); Urine Protein NEGATIVE (Negative); Urine Urobilinogen 0.2 mg/dL (0.2-1.0); Urine pH 5.5 (5.0-7.0)
[2021-10-28 23:54] LABS: Urine Bacteria 20-50 /HPF (<20)
--- NOTE | 2021-10-29 06:06 | P.PN ---
Subjective Date of Service: 10/29/21 Primary Care Provider: LUKAS Prakash Chief Complaint: Weakness and recurrent falls Subjective: Improving, Doing well Physical Examination - Vital Signs Temperature: 97.3 F Blood Pressure: 168/80 Pulse: 100 Respirations: 19 Pulse Ox (%): 95 Assessment & Plan Discharge Plan: Home Plan to discharge in: 24 Hours Physician Review Additional Text: COVID: Positive Unvaccinated Initial CXR: COMPARISON: none FINDINGS: The lungs appear clear of acute infiltrate. The heart is normal size IMPRESSION: No acute abnormalities displayed CT Head/Neck/Chest/AB/Pelvis: COMPARISON: None. FINDINGS: Multiple transaxial tomograms of the brain were obtained from the base of the skull to the vertex without contrast. 2-D multiplanar reformats and the coronal and sagittal plane were performed and reviewed. Multiple axial CT images through the cervical spine were obtained at 2 mm slice thickness at 2 mm interval reconstruction. In addition 2-D multiplanar reformats and the sagittal coronal plane were performed and reviewed. Multiple transaxial tomograms of the chest were obtained from the lung apices through the adrenal glands, utilizing 5 mm slice thickness at 5 mm interval reconstruction without the administration of IV contrast. Multiplanar reformats in the sagittal and coronal plane were generated and reviewed. Multiple transaxial tomograms of the abdomen and pelvis were performed from the lung bases to the symphysis pubis 5 mm slice thickness at 5 mm interval reconstruction, without administration of IV and oral contrast. Multiplanar reformats in the sagittal and coronal plane were generated and reviewed. This exam was performed according to our departmental dose-optimization protocol, which includes automated exposure control, adjustment of the mA and/or kV according to patient size and/or use of iterative reconstruction technique. CT brain: Brain parenchyma demonstrate mild prominence of the sulci and gyri are corresponding to mild cerebral and cerebellar atrophy. There is minimal periventricular white matter changes of microvascular ischemia. There is no midline shift and/or mass effect. There is no evidence for acute intracranial hemorrhage. Lateral ventricles and cisterns displace normal appearance. No intra or extra axial fluid collections were seen. The calvarium is intact with no evidence for fracture. The visualized portions of the paranasal sinuses and orbits demonstrate to be clear. CT C-spine: There is diffuse bony osteopenia. The alignment of the vertebral bodies are normal. There is no evidence of fracture or subluxation. There is degenerative very minimal disc disease with decreased intervertebral disc height, anterior spondylosis and posterior osteophyte complex at C5/C6. Also degenerative changes are seen within the anterior arch of C1 and dens. The spinal canal demonstrate no evidence for significant stenosis. Neural foramina demonstrate to be unremarkable. There are uncovertebral degenerative changes C2- C6. There is no prevertebral soft tissue swelling. Sagittal coronal reformatted images demonstrate no subluxation or bony abnormalities. CT chest: The lungs parenchyma demonstrate dependent atelectatic changes especially along the right lung base with mild elevation of the right hemidiaphragm. No significant masses and/or nodules are identified. The trachea mainstem bronchus demonstrate to be normal. There is no significant pleural and/or pericardial effusions. The heart is nonenlarged. There are mitral annular calcification. There are very minimal coronary artery calcifications. There is intimal thoracic aortic arch calcification. There is no significant mediastinal and/or hilar lymphadenopathy. The axillary regions demonstrate to be clear. The bone windows demonstrate mild diffuse bony osteopenia. Degenerative changes glenohumeral joint greater right than left. CT abdomen pelvis: Grossly the unopacified liver, pancreas, spleen and adrenal glands demonstrate to be within normal limits, no significant focal lesions were identified. Radiodensity within the fundus of the gallbladder corresponding to cholelithiasis The kidneys demonstrate bilateral hydronephrosis and hydroureter with a markedly distended urinary bladder. Probable cystocele. There is perinephric haziness suggesting fluid versus less likely inflammation. There is no evidence for nephrolithiasis. Grossly the unopacified stomach, small bowel and large bowel demonstrate to be within normal limits. There is no evidence for bowel dilatation/or free air. There is diverticulosis within the left site colon The appendix is unremarkable. The uterus is absent The aorta demonstrate atherosclerotic disease. There is no retroperitoneal lymphadenopathy. There is no evidence for ascites. The bone windows demonstrate diffuse bony osteopenia. Superior endplate compression deformity at T12 and L1 as well as L3. Degenerative disc disease L4- S1 with posterior facet hypertrophy. IMPRESSION: Mild cerebral and cerebellar atrophy with minimal periventricular white matter changes of microvascular ischemia. No evidence for fracture or subluxation of the cervical spine. Degenerative changes as described above. Cholelithiasis. Bilateral hydronephrosis and hydroureter with a markedly distended urinary bladder with probable cystocele. There is perinephric haziness suggesting fluid versus less likely inflammation. Diverticulosis with no evidence for diverticulitis. Superior endplate compression deformity at T12 and L1 as well as L3. Atherosclerotic disease of the thoracic and abdominal aorta. Renal US: COMPARISON: October 11, 2021 FINDINGS: The right kidney measures 10 cm with a normal echotexture. Small echogenic structure midpole The left kidney measures 9 cm with a normal echotexture. Hydronephrosis is not seen. A Garza catheter is present within a collapsed bladder. IMPRESSION: Small echogenic structure mid pole right kidney may represent a nonobstructing calculus Follow up CXR 10/27/2021: COMPARISON: Chest Single View dated 10/26/2021 FINDINGS: Lines: None. Lungs: Mild increased basilar airspace disease and right mid lung opacities. Pleural: No significant pleural effusions or pneumothorax. Cardiac: The heart size is within normal limits. Bones: No acute fractures. IMPRESSION: Increased mild basilar and right mid lung opacities could reflect atelectasis and/or pneumonia. Physical exam: General: Patient more alert and responsive. HEENT: Neck supple Respiratory: Clear to auscultation bilaterally, Normal air movement, currently on 2 L per nasal cannula Cardiovascular: No edema, Regular rate/rhythm, Normal S1 S2 Gastrointestinal: Normal bowel sounds, Soft and benign, Non-distended Musculoskeletal: No clubbing, No swelling Integumentary: No significant edema Neurological: Patient appears improved and more alert. Impression: Acute metabolic encephalopathy secondary to acute renal failure with hyponatremia, hyperkalemia COVID positive Nonketotic hyperosmolar Hyperglycemia with DM type 2 Acute on chronic thrombocytopenia History of breast cancer Leukocytosis Urinary retention Plan: Acute metabolic encephalopathy secondary to acute renal failure with hypon atremia, hyperkalemia: Patient doing well. Renal function back to baseline. CBC stable. Will transition to oral antibiotic therapy and oral steroid. We will plan for discharge home. COVID positive: Transition to oral antibiotic therapy. Change to oral prednisone. No further need for oxygen. Follow-up with pulmonology as an outpatient. Nonketotic hyperosmolar Hyperglycemia with DM type 2: Continue Accu-Cheks and sliding scale. Continue to adjust basal insulin. Hemoglobin A1c 11.2. Acute on chronic thrombocytopenia: CBC stable. Continue with oral steroid. Follow-up with [place] [facility] or local oncology for bone marrow biopsy. History of breast cancer: Patient is seen by [place] [facility]. Leukocytosis: Leukocytosis likely related to pneumonia and steroid use. This can be followed as an outpatient. Urinary retention: Patient will be discharged with Garza catheter at discharge. Recommend follow-up with urology to further address as an outpatient. CODE STATUS: This was discussed in detail with family. Patient is DO NOT RESUSCITATE. DVT prophylaxis: SCDs in place. No anticoagulation recommended due to thrombocytopenia. Advance care [id number] minutes: Home at discharge with home health and physical therapy. Time Spent Managing Pts Care (In Minutes): 55
[2021-10-29 06:09] LABS: Absolute Lymphocytes (CBC) 1.2 K/uL (0.7-4.9); Hematocrit 31.1 % (36.0-45.0); Lymphocytes % 5.7 % (15.3-44.8); MPV 11.7 fL (7.6-11.3); RBC Red Blood Cell Count 3.66 M/uL (3.86-4.86)
[2021-10-29] MEDS: NA CHLORIDE 0.9% 1,000 ML IV SCH (06:10)
[2021-10-29 06:43] LABS: Albumin 1.9 g/dL (3.4-5.0); Bilirubin Total 0.6 mg/dL (0.2-1.0); C-Reactive Protein 80.3 mg/L (<3.00); Ferritin 253.3 ng/mL (8-388); Protein, Total 5.1 g/dL (6.4-8.2)
[2021-10-29 06:48] LABS: Magnesium 1.6 mg/dL (1.8-2.4); Potassium 4.1 mmol/L (3.5-5.1)
[2021-10-29 06:50] LABS: Blood Morphology Comment NOT SEEN (NOT SEEN); Platelet Estimate DECR; White Blood Cell Scan OK (OK)
[2021-10-29] MEDS: INSULIN -REGULAR HUMAN 50 UNIT/0.5 ML ML SQ SCH ×2 (07:30→11:30)
[2021-10-29] MEDS: INSULIN GLARGINE 100 UNIT/ML SQ SCH (09:00)
[2021-10-29] MEDS ORDERED: predniSONE 10 MG TAB PO SCH (09:00)
[2021-10-29] MEDS ORDERED: levoFLOXacin 500 MG TAB PO SCH (09:00)
[2021-10-29] MEDS: FAMOTIDINE 20 MG TAB PO SCH (09:16)
[2021-10-29] MEDS: FOLIC ACID 1 MG TABLET PO SCH (09:16)
[2021-10-29] MEDS: THIAMINE HCL 100 MG TABLET PO SCH (09:17)
[2021-10-29 11:23] LABS: Absolute Lymphocytes (CBC) 1.2 K/uL (0.7-4.9); Hematocrit 29.7 % (36.0-45.0); Lymphocytes % 5.7 % (15.3-44.8); MPV 11.6 fL (7.6-11.3); RBC Red Blood Cell Count 3.46 M/uL (3.86-4.86)
[2021-10-29 11:29] LABS: Protime INR 1.14
[2021-10-29] MEDS ORDERED: MAGNESIUM SULFATE 1 gm IVPB 1 GM/100 ML BAG IV ONE (11:39)
[2021-10-29 12:48] VITALS: O2SAT 93
[2021-10-29] MEDS: HYDRALAZINE HCL 20 MG/ML VIAL IV PRN (12:48)
[2021-10-29 13:18] VITALS: TEMP 97.3
--- NOTE | 2021-10-29 13:19 | P.DS ---
Admission Date: 10/26/21 Discharge Date: 10/29/21 Primary Care Provider: LUKAS Prakash Disposition: DC HOME/HOME HEALTH CARE Discharge Condition: GOOD Reason for Admission: Weakness and recurrent falls Consultations: Pulmonary-Dr. Mejia Nephrology-Dr. Wen Procedures: COVID: Positive Unvaccinated Initial CXR: COMPARISON: none FINDINGS: The lungs appear clear of acute infiltrate. The heart is normal size IMPRESSION: No acute abnormalities displayed CT Head/Neck/Chest/AB/Pelvis: COMPARISON: None. FINDINGS: Multiple transaxial tomograms of the brain were obtained from the base of the skull to the vertex without contrast. 2-D multiplanar reformats and the coronal and sagittal plane were performed and reviewed. Multiple axial CT images through the cervical spine were obtained at 2 mm slice thickness at 2 mm interval reconstruction. In addition 2-D multiplanar reformats and the sagittal coronal plane were performed and reviewed. Multiple transaxial tomograms of the chest were obtained from the lung apices through the adrenal glands, utilizing 5 mm slice thickness at 5 mm interval re construction without the administration of IV contrast. Multiplanar reformats in the sagittal and coronal plane were generated and reviewed. Multiple transaxial tomograms of the abdomen and pelvis were performed from the lung bases to the symphysis pubis 5 mm slice thickness at 5 mm interval reconstruction, without administration of IV and oral contrast. Multiplanar reformats in the sagittal and coronal plane were generated and reviewed. This exam was performed according to our departmental dose-optimization protocol, which includes automated exposure control, adjustment of the mA and/or kV according to patient size and/or use of iterative reconstruction technique. CT brain: Brain parenchyma demonstrate mild prominence of the sulci and gyri are corresponding to mild cerebral and cerebellar atrophy. There is minimal periventricular white matter changes of microvascular ischemia. There is no midline shift and/or mass effect. There is no evidence for acute intracranial hemorrhage. Lateral ventricles and cisterns displace normal appearance. No intra or extra axial fluid collections were seen. The calvarium is intact with no evidence for fracture. The visualized portions of the paranasal sinuses and orbits demonstrate to be clear. CT C-spine: There is diffuse bony osteopenia. The alignment of the vertebral bodies are normal. There is no evidence of fracture or subluxation. There is degenerative very minimal disc disease with decreased intervertebral disc height, anterior spondylosis and posterior osteophyte complex at C5/C6. Also degenerative changes are seen within the anterior arch of C1 and dens. The spinal canal demonstrate no evidence for significant stenosis. Neural foramina demonstrate to be unremarkable. There are uncovertebral degenerative changes C2- C6. There is no prevertebral soft tissue swelling. Sagittal coronal reformatted images demonstrate no subluxation or bony abnormalities. CT chest: The lungs parenchyma demonstrate dependent atelectatic changes especially along the right lung base with mild elevation of the right hemidiaphragm. No significant masses and/or nodules are identified. The trachea mainstem bronchus demonstrate to be normal. There is no significant pleural and/or pericardial effusions. The heart is nonenlarged. There are mitral annular calcification. There are very minimal coronary artery calcifications. There is intimal thoracic aortic arch calcification. There is no significant mediastinal and/or hilar lymphadenopathy. The axillary regions demonstrate to be clear. The bone windows demonstrate mild diffuse bony osteopenia. Degenerative changes glenohumeral joint greater right than left. CT abdomen pelvis: Grossly the unopacified liver, pancreas, spleen and adrenal glands demonstrate to be within normal limits, no significant focal lesions were identified. Radiodensity within the fundus of the gallbladder corresponding to cholelithiasis The kidneys demonstrate bilateral hydronephrosis and hydroureter with a markedly distended urinary bladder. Probable cystocele. There is perinephric haziness suggesting fluid versus less likely inflammation. There is no evidence for nephrolithiasis. Grossly the unopacified stomach, small bowel and large bowel demonstrate to be within normal limits. There is no evidence for bowel dilatation/or free air. There is diverticulosis within the left site colon The appendix is unremarkable. The uterus is absent The aorta demonstrate atherosclerotic disease. There is no retroperitoneal lymphadenopathy. There is no evidence for ascites. The bone windows demonstrate diffuse bony osteopenia. Superior endplate compression deformity at T12 and L1 as well as L3. Degenerative disc disease L4- S1 with posterior facet hypertrophy. IMPRESSION: Mild cerebral and cerebellar atrophy with minimal periventricular white matter changes of microvascular ischemia. No evidence for fracture or subluxation of the cervical spine. Degenerative changes as described above. Cholelithiasis. Bilateral hydronephrosis and hydroureter with a markedly distended urinary bladder with probable cystocele. There is perinephric haziness suggesting fluid versus less likely inflammation. Diverticulosis with no evidence for diverticulitis. Superior endplate compression deformity at T12 and L1 as well as L3. Atherosclerotic disease of the thoracic and abdominal aorta. ECHO: MEASUREMENTS (cm) DIASTOLIC (NORMALS) SYSTOLIC (NORMALS) IVSd 1.1 (0.6-1.2) LA Diam 3.0 (1.9-4.0) LVEF 83% LVIDd 3.6 (3.5-5.7) LVIDs 1.8 (2.0-3.5) %FS 51% LVPWd 1.3 (0.6-1.2) Ao Diam 2.2 (2.0-3.7) 2 DIMENSIONAL ASSESSMENT: RIGHT ATRIUM: NORMAL LEFT ATRIUM: NORMAL RIGHT VENTRICLE: NORMAL LEFT VENTRICLE: NORMAL TRICUSPID VALVE: NORMAL MITRAL VALVE: MITRAL STENOSIS PULMONIC VALVE: NORMAL AORTIC VALVE: AORTIC STENOSIS PERICARDIAL EFFUSION: NONE AORTIC ROOT: NORMAL LEFT VENTRICULAR WALL MOTION: NORMAL DOPPLER/COLOR FLOW: MILD AORTIC STENOSIS, MITRAL STENOSIS BOTH 1.7 CENTIMETERS SQUARED. COMMENTS: MILD AORTIC STENOSIS 1.7 CENTIMETERS SQUARED. MILD MITRAL STENOSIS 1.7 CENTIMETERS SQUARED. NORMAL EJECTION FRACTION. MILD TRICUSPID REGURGITATION. NORMAL RIGHT VENTRICULAR SYSTOLIC PRESSURE. Renal US: COMPARISON: October 11, 2021 FINDINGS: The right kidney measures 10 cm with a normal echotexture. Small echogenic structure midpole The left kidney measures 9 cm with a normal echotexture. Hydronephrosis is not seen. A Garza catheter is present within a collapsed bladder. IMPRESSION: Small echogenic structure mid pole right kidney may represent a nonobstructing calculus Peripheral smear: Peripheral blood smear: - Leukocytosis with absolute neutrophilia and absolute monocytosis, favor reactive - Thrombocytopenia Follow up CXR 10/27/2021: COMPARISON: October 26, 2020 FINDINGS: No change in mild bilateral pulmonary opacities. Heart is mildly enlarged IMPRESSION: No change in mild bilateral pulmonary opacities which may represent pneumonia Medical Problem List: Acute metabolic encephalopathy secondary to acute renal failure with hyponatremia, hyperkalemia COVID positive Nonketotic hyperosmolar Hyperglycemia with DM type 2 Acute on chronic thrombocytopenia History of breast cancer Leukocytosis Urinary retention with noted hydronephrosis HTN Brief History of Present Illness: 75-year-old with history of hypertension, chronic thrombocytopenia, prior breast cancer. Patient was brought in due to recurrent falls. Poor nutrition noted. Patient also had been evaluated recently for upper respiratory infection and given Z-Joey with steroids. Patient was found to be positive for Covid. Thrombocytopenia noted. Acute renal failure also identified with hydronephrosis. Severe hyperglycemia also identified. Patient was admitted for treatment. Hospital Course: Patient presented with weakness, confusion secondary to acute metabolic encephalopathy. This was related to multifactorial issues including acute renal failure with hyponatremia, hyperkalemia, COVID-19 pneumonia, and nonketotic hyperosmolar hyperglycemia. This was further complicated with acute on chronic thrombocytopenia. Patient was treated in the course of her stay. Patient received IV fluids with improvement in her acute renal failure and hyponatremia. Patient was seen and evaluated by nephrology. Her condition improved. Renal failure resolved. Renal function now back to baseline. At discharge patient will continue with oral intake. Recommend to recheck labBMP in 1 week to monitor progress. Patient may follow-up with nephrology as an outpatient to further follow-up this hospitalization. Family is planning to establish care in the area. A list of providers will be provided including: PCP, Nephrology, Pulmonary, and Urology. As mentioned above patient also was positive for COVID-19 pneumonia. Patient is unvaccinated. Patient received IV antibiotic therapy and IV steroids with improvement. Patient seen and evaluated by pulmonology. Patient has done well. Patient on room air at this time. At discharge the patient will continue with Levaquin 500 mg daily for 5 more days. Patient will continue with prednisone 20 mg 1 pill twice daily for 7 days then 1 pill once daily for 7 days. Will also continue with folic acid daily and thiamine 100 mg daily. Recommend to recheck chest x-ray in 2 to 4 weeks to monitor resolution. Recommend follow-up with pulmonology in 1 to 2 weeks to follow-up his hospitalization. At discharge she will continue with COVID-19 recommendations including social distancing, handwashing in face mask use. As mentioned above patient also had nonketotic hyperosmolar hyperglycemia. Patient with diabetes mellitus type 2. Hemoglobin A1c 11.2. At discharge will continue with Lantus 10 units sc twice daily. Recommend to monitor blood sugars daily. Recommend to maintain blood sugar less than 140 fasting and less than 200 after meals. If BS remains elevated greater than 200 then Lantus will need to be increased by 1-2 units. This can be done with the help of her PCP. Recommend to recheck hemoglobin A1c every 3 months to monitor progress. Recommend follow-up with her PCP to further monitor and address. As mentioned above patient also presented with acute on chronic thrombocytopenia. Patient with history of breast cancer. Patient is seen by [place] [facility]. Patient was given 2 units of platelets during the course of her stay. Case discussed in detail with hematology. Patient overall stable. No active bleeding noted. At discharge recommend follow-up with hematology oncology within 1 week. Patient will need bone marrow biopsy as an outpatient to further evaluate and address. Patient also had urinary retention. Hydronephrosis and hydroureter was noted upon admission. Urine culture and blood culture negative. Patient was given a trial off Garza catheter. This was unsuccessful. At discharge patient will continue with Garza catheter. Recommend to establish care with urology as an outpatient to further address. Patient with hypertension. Medications adjusted. She will no longer take Lisinopril due to her acute renal failure which has resolved. At discharge we will continue with metoprolol 25 mg 1 pill twice daily. Recommend to maintain blood pressure less than 130/80. Further adjustment can be done by her PCP. Home health and physical therapy will be arranged prior to discharge. Advance care directives addressed during the course of her stay. Patient is DO NOT RESUSCITATE. Vital Signs/Physical Exam: Temp Pulse Resp BP Pulse Ox 97.3 F 100 H 19 168/80 H 95 10/29/21 13:18 10/29/21 13:18 10/29/21 13:18 10/29/21 13:18 10/29/21 13:18 General: Alert, In no apparent distress, Oriented x3, Cooperative HEENT: Atraumatic Neck: Supple Respiratory: Clear to auscultation bilaterally Cardiovascular: Normal pulses, Regular rate/rhythm Gastrointestinal: Normal bowel sounds Musculoskeletal: No erythema, No tenderness, No warmth Integumentary: No erythema, No warmth, No cyanosis Neurological: Normal speech, Normal strength at 5/5 x4 extr, Normal tone External genitalia: Other (Garza catheter in place) Laboratory Data at Discharge: WBC 20.30 K/uL (4.3-10.9) H* 10/29/21 11:06 Hgb 9.7 g/dL (12.0-15.0) L 10/29/21 11:06 Hct 29.7 % (36.0-45.0) L 10/29/21 11:06 Plt Count 27 K/uL (152-406) L* D 10/29/21 11:06 PT 13.1 SECONDS (9.5-12.5) H 10/29/21 11:06 INR 1.14 10/29/21 11:06 APTT 21.8 SECONDS (24.3-36.9) L 10/29/21 11:06 Sodium 141 mmol/L (136-145) 10/29/21 05:41 Potassium 4.1 mmol/L (3.5-5.1) 10/29/21 05:41 BUN 20 mg/dL (7-18) H 10/29/21 05:41 Creatinine 0.76 mg/dL (0.55-1.3) 10/29/21 05:41 Glucose 66 mg/dL (74-106) L 10/29/21 05:41 Uric Acid 6.3 mg/dL (2.6-6.0) H 10/27/21 06:14 Phosphorus 3.4 mg/dL (2.5-4.9) 10/27/21 06:14 Magnesium 1.6 mg/dL (1.8-2.4) L 10/29/21 05:41 Total Bilirubin 0.6 mg/dL (0.2-1.0) 10/29/21 05:41 AST 38 U/L (15-37) H 10/29/21 05:41 ALT 33 U/L (12-78) 10/29/21 05:41 Alkaline Phosphatase 48 U/L (45-117) 10/29/21 05:41 Home Medications: Alendronate Sodium 70 mg PO SEECOM 10/29/21 Folic Acid 1 mg PO DAILY #30 tablet 10/29/21 Insulin Glargine,Hum.rec.anlog [Lantus Solostar] 10 unit SQ BID #1 joey 10/29/21 Lisinopril [Zestril] 1 tab PO DAILY 10/29/21 Metoprolol Tartrate [Lopressor*] 25 mg PO BID 6AM 6PM #60 tab 10/29/21 Thiamine HCl [Vitamin B-1*] 100 mg PO DAILY #30 tablet 10/29/21 New Medications: Folic Acid 1 mg PO DAILY #30 tablet Insulin Glargine,Hum.rec.anlog [Lantus Solostar] 10 unit SQ BID #1 joey Metoprolol Tartrate [Lopressor*] 25 mg PO BID 6AM 6PM #60 tab Thiamine HCl [Vitamin B-1*] 100 mg PO DAILY #30 tablet Physician Discharge Instructions: Patient presented with weakness, confusion secondary to acute metabolic encephalopathy. This was related to multifactorial issues including acute renal failure with hyponatremia, hyperkalemia, COVID-19 pneumonia, and nonketotic hyperosmolar hyperglycemia. This was further complicated with acute on chronic thrombocytopenia. Patient was treated in the course of her stay. Patient rece ived IV fluids with improvement in her acute renal failure and hyponatremia. Patient was seen and evaluated by nephrology. Her condition improved. Renal failure resolved. Renal function now back to baseline. At discharge patient will continue with oral intake. Recommend to recheck labBMP in 1 week to monitor progress. Patient may follow-up with nephrology as an outpatient to further follow-up this hospitalization. Family is planning to establish care in the area. A list of providers will be provided including: PCP, Nephrology, Pulmonary, and Urology. As mentioned above patient also was positive for COVID-19 pneumonia. Patient is unvaccinated. Patient received IV antibiotic therapy and IV steroids with improvement. Patient seen and evaluated by pulmonology. Patient has done well. Patient on room air at this time. At discharge the patient will continue with Levaquin 500 mg daily for 5 more days. Patient will continue with prednisone 20 mg 1 pill twice daily for 7 days then 1 pill once daily for 7 days. Will also continue with folic acid daily and thiamine 100 mg daily. Recommend to recheck chest x-ray in 2 to 4 weeks to monitor resolution. Recommend follow-up with p ulmonology in 1 to 2 weeks to follow-up his hospitalization. At discharge she will continue with COVID-19 recommendations including social distancing, handwashing in face mask use. As mentioned above patient also had nonketotic hyperosmolar hyperglycemia. Patient with diabetes mellitus type 2. Hemoglobin A1c 11.2. At discharge will continue with Lantus 10 units sc twice daily. Recommend to monitor blood sugars daily. Recommend to maintain blood sugar less than 140 fasting and less than 200 after meals. If BS remains elevated greater than 200 then Lantus will need to be increased by 1-2 units. This can be done with the help of her PCP. Recommend to recheck hemoglobin A1c every 3 months to monitor progress. Recommend follow-up with her PCP to further monitor and address. As mentioned above patient also presented with acute on chronic thrombocytopenia. Patient with history of breast cancer. Patient is seen by [place] [facility]. Patient was given 2 units of platelets during the course of her stay. Case discussed in detail with hematology. Patient overall stable. No active bleeding noted. At discharge recommend follow-up with hematology oncology within 1 week. Patient will need bone marrow biopsy as an outpatient to further evaluate and address. Patient also had urinary retention. Hydronephrosis and hydroureter was noted upon admission. Urine culture and blood culture negative. Patient was given a trial off Garza catheter. This was unsuccessful. At discharge patient will continue with Garza catheter. Recommend to establish care with urology as an outpatient to further address. Patient with hypertension. Medications adjusted. She will no longer take Lisinopril due to her acute renal failure which has resolved. At discharge we will continue with metoprolol 25 mg 1 pill twice daily. Recommend to maintain blood pressure less than 130/80. Further adjustment can be done by her PCP. Home health and physical therapy will be arranged prior to discharge. Advance care directives addressed during the course of her stay. Patient is DO NOT RESUSCITATE. Diet: ADA Activity: Ad carlos alberto Followup: AURELIO CAREY [Primary Care Provider] - Time spent managing pt's care (in minutes): 55
[2021-10-29] MEDS ORDERED: METOPROLOL TAR 25 MG TAB PO SCH (14:11)
[2021-10-29 14:40] VITALS: BP 135/60
--- NOTE | 2021-10-29 23:43 | P.PN ---
Date of Service: 10/29/21 Vital Signs Temp Pulse Resp BP Pulse Ox 97.3 F 109 H 19 135/60 95 10/29/21 13:18 10/29/21 14:38 10/29/21 13:18 10/29/21 14:38 10/29/21 13:18 Microbiology Results 10/26/21 00:20 Blood - Blood Aerobic Blood Culture - Preliminary No growth in 24 hours. 10/26/21 00:20 Blood - Blood Anaerobic Blood Culture - Preliminary No growth in 24 hours. 10/26/21 00:37 Blood - Blood Aerobic Blood Culture - Preliminary No growth in 24 hours. 10/26/21 00:37 Blood - Blood Anaerobic Blood Culture - Final Assessment/ Plan: Nephrology No dyspnea No chest pain Feeling better today Failed voiding trial yesterday No acute events overnight Vitals, medications, blood work and imaging reviewed in the chart General: Cooperative, Mild distress HEENT: Atraumatic Neck: Supple Respiratory: Clear to auscultation bilaterally Cardiovascular: No edema, Regular rate/rhythm Gastrointestinal: Non-distended Musculoskeletal: No clubbing, No contractures Integumentary: No rashes, No cyanosis Laboratory Data (last 24 hrs) 10/26/21 00:20: PT 10.7, INR 0.93 10/26/21 00:20: WBC 21.30 H*, Hgb 13.2, Hct 42.3, Plt Count 9 L* 10/26/21 00:20: Sodium 118 L*, Potassium 5.7 H*, BUN 62 H, Creatinine 4.51 H, Glucose 1152 H*, Magnesium 2.3, Total Bilirubin 0.9, AST 17, ALT 24, Alkaline Phosphatase 71 Imagings Data: EXAM DESCRIPTION: US - Renal Ultrasound-Complete - 10/26/2021 6:11 am CLINICAL HISTORY: Acute renal failure COMPARISON: October 11, 2021 FINDINGS: The right kidney measures 10 cm with a normal echotexture. Small echogenic structure midpole The left kidney measures 9 cm with a normal echotexture. Hydronephrosis is not seen. A Olsen catheter is present within a collapsed bladder. IMPRESSION: Small echogenic structure mid pole right kidney may represent a nonobstructing calculus EXAM DESCRIPTION: CT - Head C Spine Cap Wo Con - 10/26/2021 6:22 am CLINICAL HISTORY: 75 years, Female, ABD PAIN COMPARISON: None. FINDINGS: Multiple transaxial tomograms of the brain were obtained from the base of the skull to the vertex without contrast. 2-D multiplanar reformats and the coronal and sagittal plane were performed and reviewed. Multiple axial CT images through the cervical spine were obtained at 2 mm slice thickness at 2 mm interval reconstruction. In addition 2-D multiplanar reformats and the sagittal coronal plane were performed and reviewed. Multiple transaxial tomograms of the chest were obtained from the lung apices through the adrenal glands, utilizing 5 mm slice thickness at 5 mm interval reconstruction without the administration of IV contrast. Multiplanar reformats in the sagittal and coronal plane were generated and reviewed. Multiple transaxial tomograms of the abdomen and pelvis were performed from the lung bases to the symphysis pubis 5 mm slice thickness at 5 mm interval reconstruction, without administration of IV and oral contrast. Multiplanar reformats in the sagittal and coronal plane were generated and reviewed. This exam was performed according to our departmental dose-optimization pr otocol, which includes automated exposure control, adjustment of the mA and/or kV according to patient size and/or use of iterative reconstruction technique. CT brain: Brain parenchyma demonstrate mild prominence of the sulci and gyri are corresponding to mild cerebral and cerebellar atrophy. There is minimal periventricular white matter changes of microvascular ischemia. There is no midline shift and/or mass effect. There is no evidence for acute intracranial hemorrhage. Lateral ventricles and cisterns displace normal appearance. No intra or extra axial fluid collections were seen. The calvarium is intact with no evidence for fracture. The visualized portions of the paranasal sinuses and orbits demonstrate to be clear. CT C-spine: There is diffuse bony osteopenia. The alignment of the vertebral bodies are normal. There is no evidence of fracture or subluxation. There is degenerative very minimal disc disease with decreased intervertebral disc height, anterior spondylosis and posterior osteophyte complex at C5/C6. Also degenerative changes are seen within the anterior arch of C1 and dens. The spinal canal demonstrate no evidence for significant stenosis. Neural foramina demonstrate to be unremarkable. There are uncovertebral degenerative changes C2- C6. There is no prevertebral soft tissue swelling. Sagittal coronal reformatted images demonstrate no subluxation or bony abnormalities. CT chest: The lungs parenchyma demonstrate dependent atelectatic changes especially along the right lung base with mild elevation of the right hemidiaphragm. No significant masses and/or nodules are identified. The trachea mainstem bronchus demonstrate to be normal. There is no significant pleural and/or pericardial effusions. The heart is nonenlarged. There are mitral annular calcification. There are very minimal coronary artery calcifications. There is intimal thoracic aortic arch calcification. There is no significant mediastinal and/or hilar lymphadenopathy. The axillary regions demonstrate to be clear. The bone windows demonstrate mild diffuse bony osteopenia. Degenerative changes glenohumeral joint greater right than left. CT abdomen pelvis: Grossly the unopacified liver, pancreas, spleen and adrenal glands demonstrate to be within normal limits, no significant focal lesions were identified. Radiodensity within the fundus of the gallbladder corresponding to cholelithiasis The kidneys demonstrate bilateral hydronephrosis and hydroureter with a markedly distended urinary bladder. Probable cystocele. There is perinephric haziness suggesting fluid versus less likely inflammation. There is no evidence for nephrolithiasis. Grossly the unopacified stomach, small bowel and large bowel demonstrate to be within normal limits. There is no evidence for bowel dilatation/or free air. There is diverticulosis within the left site colon The appendix is unremarkable. The uterus is absent The aorta demonstrate atherosclerotic disease. There is no retroperitoneal lymphadenopathy. There is no evidence for ascites. The bone windows demonstrate diffuse bony osteopenia. Superior endplate compression deformity at T12 and L1 as well as L3. Degenerative disc disease L4- S1 with posterior facet hypertrophy. IMPRESSION: Mild cerebral and cerebellar atrophy with minimal periventricular white matter changes of microvascular ischemia. No evidence for fracture or subluxation of the cervical spine. Degenerative changes as described above. Cholelithiasis. Bilateral hydronephrosis and hydroureter with a markedly distended urinary bladder with probable cystocele. There is perinephric haziness suggesting fluid versus less likely inflammation. Diverticulosis with no evidence for diverticulitis. Superior endplate compression deformity at T12 and L1 as well as L3. Atherosclerotic disease of the thoracic and abdominal aorta. EXAM DESCRIPTION: [facility] Single View10/26/2021 12:30 am CLINICAL HISTORY: Weakness COMPARISON: none FINDINGS: The lungs appear clear of acute infiltrate. The heart is normal size IMPRESSION: No acute abnormalities displayed Conclusions/Impression: DEMI likely due to hypovolemia with possible ATN Urinary retention with hydronephrosis & hydroureter CKD? -No NSAIDs -Discontinue IVF -Voiding trial failure; olsen reinserted and will need urology follow up. Acute Hyponatremia -Encourage nutrition Hyperkalemia -Low potassium diet HTN with CKD/ CHF complicated by Hypotension -Restart Metoprolol Diastolic CHF, chronic -Daily weight DM II with CKD -Continue Lantus -RISS Thrombocytopenia -Transfuse Plts prn -Wean steroids as tolerated COVID-19 PNA -Wean steroids as tolerated -Continue Rocephin -Continue Oxygen supplementation Case reviewed with Dr. Kidd.
== END 2021-10-29 15:30 | disposition home health service (06) | DRG 177 ==
LOC: ER 23:50 → ERHOLD 10-26 05:27 → 4TH 10-26 21:46
PROVIDERS: ADMIT Internal Medicine; ATTEND Family Medicine
DX: U07.1 COVID-19 (principal); E11.00 Type 2 diabetes mellitus with hyperosmolarity without nonketotic hyperglycemic-hyperosmolar coma (NKHHC); J12.82 Pneumonia due to coronavirus disease 2019; N17.0 Acute kidney failure with tubular necrosis; I50.33 Acute on chronic diastolic (congestive) heart failure; G93.41 Metabolic encephalopathy; E87.1 Hypo-osmolality and hyponatremia; N13.30 Unspecified hydronephrosis; I13.0 Hypertensive heart and chronic kidney disease with heart failure and stage 1 through stage 4 chronic kidney disease, or unspecified chronic kidney disease; N18.9 Chronic kidney disease, unspecified; E11.22 Type 2 diabetes mellitus with diabetic chronic kidney disease; E86.0 Dehydration; E87.5 Hyperkalemia; D69.6 Thrombocytopenia, unspecified; T38.0X5A Adverse effect of glucocorticoids and synthetic analogues, initial encounter; R33.9 Retention of urine, unspecified; Z90.11 Acquired absence of right breast and nipple; Z79.899 Other long term (current) drug therapy; Z85.3 Personal history of malignant neoplasm of breast; Z66 Do not resuscitate; Z79.4 Long term (current) use of insulin
CPT/HCPCS: 0240U; 36415; 51702; 70450; 71045; 71250; 72125; 76770; 80048; 80053; 80076; 81001; 81003; 82010; 82550; 82570; 82607; 82728; 82746; 82947; 83036; 83605; 83615; 83735; 83880; 84100; 84145; 84300; 84443; 84484; 84550; 85025; 85379; 85384; 85610; 85730; 86140; 86850; 86900; 86901; 87040; 87086; 87088; 93005; 93306; 94760; 96374; 96375; 97116; 97161; 97530; 99285; J0360; J2270; J2405; J2920; J3411; J3475; J7030; J7040; J7512; P9035; P9100

== ENCOUNTER 2021-11-03 21:36 | Inpatient (IN) | payer OTHER ==
--- OUTSIDE RECORDS SUMMARY | 2021-11-03 21:40 | XMS REPORT | Continuity of Care Document ---
:1945 Author Organization [facility] t Address [address] [place] [address] Care Team Providers Name Role Phone JEREMIAH GUTIERREZ M.D. Attending Clinician Unavailable DR MAGALY BORREGO Attending Clinician Unavailable DR MAGALY BORREGO Admitting Clinician Unavailable Problems Condition Condition Condition Status Onset Resolution Last Treating Co mments Source Name Details Category Date Date Treatment Clinician Date History of History of Problem Resolve [facility] High blood High blood d it y of pressure pressure [place] [facility] Other Other Problem Active Univers closed closed ity of nondisplac nondisplac [facility] ed ed Physici fracture fracture ans of of proximal proximal end of end of right right humerus, humerus, initial initial encounter encounter Other Other Problem Active [facility] closed closed ity of nondisplac nondisplac [place] [facility] fracture fracture ans of distal of distal end of end of right right humerus humerus with with routine routine healing, healing, subsequent subsequent encounter encounter Stiffness Stiffness Problem Active Uni vers of left of left ity of shoulder shoulder [place] joint joint Physici ans Allergies, Adverse Reactions, Alerts This patient has no known allergies or adverse reactions. Social History Smoking Status Start Date Stop Date Source Never smoker [facility] Medications Ordered Filled Start Stop Current Ordering Indication Dosage Frequency Signature Comments Components Source Medication Medication Date Date Medication? Clinician (SIG) Name Name Acetaminoph Acetaminoph 2018-0 Yes JEREMIAH TAKE 1 [facility] en-Codeine en-Codeine 7-15 SCOBERCEA TABLET ity of #3 300-30 #3 300-30 00:00: M.D. EVERY 4 TO [place] MG Oral MG Oral 00 6 HOURS Phy sici Tablet Tablet NEEDED FOR ans PAIN. Losartan Losartan Yes [facility] Potassium Potassium ity o f TABS TABS [place] [facility] Vital Signs Vital Name Observation Time Observation Value Comments Source Height 2019-07-01 07:35:00 62 [in_us] [facility] [place] [facility] Weight 2019-07-01 07:35:00 147 [lb_av] [facility] [place] [facility] Body Mass Index 2019-07-01 07:35:00 26.89 kg/m2 [facility] [place] [facility] Height 2019-06-03 07:35:00 62 [in_us] [facility] [place] [facility] Weight 2019-06-03 07:35:00 147 [lb_av] [facility] [place] [facility] Body Mass Index 2019-06-03 07:35:00 26.89 kg/m2 [facility] [place] [facility] Height 2019-05-06 10:48:00 62 [in_us] [facility] [place] [facility] Weight 2019-05-06 10:48:00 147 [lb_av] [facility] [place] [facility] Body Mass Index 2019-05-06 10:48:00 26.89 kg/m2 Un[facility] Calculated Physicians Procedures Procedure Date / Time Performed Performing Clinician [facility] e History of Surgery [facility] Encounters Start End Encounter Admission Attending Care Care Encounter Source Date/Time Date/Time Type Type Clinicians Facility Department ID 2019-07-01 2019-07-01 Appointmen CHARLES GUTIERREZ [facility] [id number] [facility] 10:20:00 10:20:00 t; Aly DANIELS M.D. [place] Hiram DANIELS M.D. ans 2019-06-03 2019-06-03 Appointmen [facility] [id number] [facility] 10:35:00 10:35:00 t; Aly DANIELS M.D. [place] Hiram DANIELS M.D. ans 2019-05-06 2019-05-06 Appointmen [facility]LES GUTIERREZ [facility] [id number] Univers 10:45:00 10:45:00 t; Aly DANIELS M.D. [place] Hiram DANIELS M.D. ans 2019-04-19 2019-04-20 Emergency E [facility] [id number] 15 [place] 23:23:00 01:12:00 [facility] Results Test Test Test Results Result Source Description Time Comments Comments [U] XR SHOULDER 2019-05- Images acquired, not [facility] of MIN 2 VWS 12 reported on this accession [place] BILATERAL 10:31:00 number. Physicians [U] XRAY 2019-04- Images acquired, not Univ ersity of HUMERUS MIN 2 15 reported on this accession [place] VWS RIGHT [id number] 10:47:00 number. Physician s XR CHEST 1 VIEW 2019-03- Exam: Chest portable PORTABLE *WW* 29 erectLocation: H 00:31:41 12History: [id number]: Traumatic [id number]: Unspecified fallComparison: NoneFindings:The lungs are clear. No infiltrate or effusion is seen. The pulmonaryvasculature is normal. The heart size is mildly enlarged. Atherosclerosisinvolves the aorta. The mediastinal silhouette is unremarkable. The bony thoraxis intact with degenerative changes noted.Impression:No acute disease. XR SHOULDER 2019-03- LOCATION: [id number]: RIGHT 3 VIEWS 29 73-year-old female who *WW* 00:30:28 fell and complains of right shoulder pain.COMMENT:Frontal radiographs of the right shoulder were examined.There is impacted fracture seen in the surgical neck of the proximal humerus.An avulsion fracture the greater humeral tuberosity is also seen.Degenerative arthritis is seen both within the glenohumeral joint andacromioclavicular joint spaces.The soft tissues are unremarkable.IMPRESSION:An acute fracture is seen in the surgical neck of this patient's proximal righthumerus. Also seen is a avulsion fracture involving the greater humeraltuberosity.
[2021-11-03] MEDS ORDERED: NA CHLORIDE 0.9% 500 ML ONE (22:29)
[2021-11-03] MEDS ORDERED: NA CHLORIDE 0.9% 2,000 ML ONE (22:29)
[2021-11-03 22:45] LABS: Urine Blood 1+ (Negative); Urine Glucose 3+ (Negative); Urine Protein 1+ (Negative); Urine pH 5.5 (5.0-7.0)
[2021-11-03 22:47] LABS: Absolute Lymphocytes (CBC) 0.8 K/uL (0.7-4.9); Lymphocytes % 5.3 % (15.3-44.8); MPV 11.3 fL (7.6-11.3); RBC Red Blood Cell Count 3.22 M/uL (3.86-4.86)
[2021-11-03 23:04] LABS: Albumin 1.7 g/dL (3.4-5.0); Bilirubin Direct 0.4 mg/dL (0-0.2); Bilirubin Total 1.3 mg/dL (0.2-1.0); CKMB Creatine Kinase MB 1.2 ng/mL (1.0-3.6); Protein, Total 5.6 g/dL (6.4-8.2); Troponin High Sensitivity 56.9 pg/mL (<58.9)
--- NOTE | 2021-11-03 23:25 | EDPHYS ---
Physician Documentation [facility] Name: Maren Wolfe Age: 76 yrs Sex: Female : 1945 Arrival Date: 11/03/2021 Time: 21:42 Bed 4 Private MD: ED Physician Dion Newton HPI: 11/03 22:58 This 76 yrs old Female presents to ER via EMS with complaints of Altered sp3 mental status. 22:58 76-year-old female with a history of hypertension, breast cancer, recent DKA admission sp3 presents again via EMS for altered mental status, multiple falls, and blood sugar reading "high". Limited history secondary to her mental status changes. Patient tested positive for COVID-19 last admission and remains on droplet precautions. She required BiPAP on her last admission as well. Limited ROS but per family there is no fever, vomiting, diarrhea, reported pain. Family reports multiple contusions on patient's back and also possible head injury. Daughter who is in the room reports that today she was dizzy, confused, and "did not seem right". EMS found her to be hypoxic on scene and started her on oxygen for which she currently has a requirement.. Historical: - Allergies: 22:55 No Known Allergies; st1 - PMHx: 11/04 00:17 breast cancer; Low platelet; st1 - Immunization history:: Adult Immunizations up to date, daughter is unsure if the patient received the vaccine Last tetanus immunization: up to date Pneumococcal vaccine is up to date, Flu vaccine is up to date. - Social history:: Smoking status: Patient denies any tobacco usage or history of. Patient/guardian denies using tobacco. - Family history:: not pertinent. - Code Status:: daughter states she unsure what she wants done at this time . spoke to the patients other daughter about code status.. ROS: 11/03 23:01 Unable to obtain ROS due to Mental status changes. Limited ROS in HPI.. sp3 Exam: 23:07 Constitutional: This is a well developed, well nourished patient who is awake, alert, sp3 and in no acute distress. Head/Face: Normocephalic, atraumatic. Eyes: Pupils equal round and reactive to light, extra-ocular motions intact. Lids and lashes normal. Conjunctiva and sclera are non-icteric and not injected. Cornea within normal limits. Periorbital areas with no swelling, redness, or edema. Neck: Trachea midline, no thyromegaly or masses palpated, and no cervical lymphadenopathy. Supple, full range of motion without nuchal rigidity, or vertebral point tenderness. No Meningismus. Chest/axilla: Normal chest wall appearance and motion. Nontender with no deformity. No lesions are appreciated. Abdomen/GI: Soft, non-tender, with normal bowel sounds. No distension or tympany. No guarding or rebound. No evidence of tenderness throughout. Skin: Warm, dry with normal turgor. Normal color with no rashes, no lesions, and no evidence of cellulitis. MS/ Extremity: Pulses equal, no cyanosis. Neurovascular intact. Full, normal range of motion. Neuro: Awake and alert, GCS 15, oriented to person, place, time, and situation. Cranial nerves II-XII grossly intact. Motor strength 5/5 in all extremities. Sensory grossly intact. Cerebellar exam normal. Normal gait. Psych: Awake, alert, with orientation to person, place and time. Behavior, mood, and affect are within normal limits. 23:07 Cardiovascular: Patient is tachycardic with an irregular rhythm. Cardiac exam is normal. Good distal capillary refill and perfusion.. 23:07 ECG was reviewed by the Attending Physician. EKG demonstrates normal sinus rhythm at 90 bpm with normal intervals, incomplete right bundle branch block and a QRS, altered axis, nonspecific diffuse ST/T changes without evidence of ischemia. 23:07 Respiratory: Coarse breath sounds bilaterally with rhonchi present.. Vital Signs: 21:43 BP 173 / 97; Pulse 102; Resp 23; Pulse Ox 100% on Non-rebreather mask; Weight 81.65 kg; st1 Height 5 ft. 6 in. (167.64 cm); Pain 0/10; 21:46 BP 173 / 97; Pulse 102; Resp 23; Pulse Ox 100% on Non-rebreather mask; st1 21:47 Temp 97.9; st1 23:13 BP 172 / 101; Pulse 102; Resp 25; Pulse Ox 99% on Non-rebreather mask; st1 11/04 00:23 BP 186 / 103; Pulse 98; Resp 23; Pulse Ox 92% on BiPAP; st1 11/03 21:43 Body Mass Index 29.05 (81.65 kg, 167.64 cm) st1 MDM: 11/03 21:47 Patient medically screened. kb 23:08 Data reviewed: vital signs, nurses notes. ED course: Extensive work-up including VBG, sp3 labs, UA, CT of the chest abdomen and pelvis from Ortho trauma standpoint and pulmonary standpoint as well as a CT of the head secondary to the confusion and altered mental status. Broad differential diagnosis exist including continued worsening respiratory status secondary to COVID, secondary infection, sepsis, multiorgan dysfunction syndrome, traumatic injury, shock, other infection. Secondary acute coronary syndrome is also possibility secondary to stress ischemia. Patient will need to be admitted to the hospital again for further treatment and continued work-up. Platelets remain low at 66. At this time I am not highly suspicious of a consumption coagulopathy but DIC panel should be considered on the inpatient work-up.. 23:13 ED course: We will put patient on BiPAP given her respiratory status and high O2 sp3 requirement. Prophylactic antibiotics will also be added we will admit patient to the intensive care unit. Work-up is still pending.. 23:35 ED course: Straits extensive worsening groundglass opacities bilaterally consistent sp3 with hyper inflammatory syndrome with COVID-19.. 11/03 21:50 Order name: Amylase, Serum sp3 11/03 21:50 Order name: Basic Metabolic Panel sp3 11/03 21:50 Order name: Blood Culture Adult (2) sp3 11/03 21:50 Order name: CBC with Diff sp3 11/03 21:50 Order name: CPK sp3 11/03 21:50 Order name: Ckmb sp3 11/03 21:50 Order name: LFT's sp3 11/03 21:50 Order name: Lactate; Complete Time: 23:15 sp3 11/03 21:50 Order name: Lipase sp3 11/03 21:50 Order name: Procalcitonin sp3 11/03 21:50 Order name: Protime (+inr) sp3 11/03 21:50 Order name: Ptt, Activated sp3 11/03 21:50 Order name: Troponin HS sp3 11/03 21:50 Order name: Urine Microscopic Only sp3 11/03 21:50 Order name: Chest Single View XRAY sp3 11/03 21:50 Order name: CT Head Brain wo Cont sp3 11/03 21:50 Order name: CT Chest Abdomen Pelvis W/O Contrast 3 11/03 21:50 Order name: Amylase EDMS 11/03 21:50 Order name: Basic Metabolic Panel EDMS 11/03 21:52 Order name: COVID-19 SARS RT PCR (Document "Date of Onset" if Symptomatic); Complete mw2 Time: 23:36 11/03 22:05 Order name: Glucose, Ancillary Testing; Complete Time: 23:15 EDMS 11/03 22:45 Order name: Urine Dipstick-Ancillary; Complete Time: 23:15 EDMS 11/03 23:06 Order name: Manual Differential EDMS 11/03 23:33 Order name: CPAP st1 11/04 00:10 Order name: ARTERIAL BLOOD GAS EDMS 11/04 00:22 Order name: ABG Arterial Blood Gas EDMS 11/04 00:22 Order name: Glucose, Ancillary Testing EDMS 11/03 21:50 Order name: Accucheck; Complete Time: 22:29 3 11/03 21:50 Order name: Cardiac monitoring; Complete Time: 22:20 3 11/03 21:50 Order name: EKG - Nurse/Tech; Complete Time: 22:45 3 11/03 21:50 Order name: IV Saline Lock - Large Bore; Complete Time: 22:29 3 11/03 21:50 Order name: Labs collected and sent; Complete Time: 22:20 3 11/03 21:50 Order name: O2 Per Protocol; Complete Time: 22:20 3 11/03 21:50 Order name: O2 Sat Monitoring; Complete Time: 22:20 3 11/03 21:50 Order name: Urine Dipstick-Ancillary (obtain specimen); Complete Time: 22:45 3 11/03 23:41 Order name: CONS Physician Consult; Complete Time: 01:14 EDMS Administered Medications: 22:29 Drug: NS 0.9% (30 ml/kg) 30 ml/kg Route: IV; Rate: bolus; Site: left antecubital; st1 23:57 Drug: Cefepime 1 grams Route: IVPB; Rate: 200 ml/hr; Infused Over: 30 mins; Site: right st1 antecubital; 23:58 Drug: vancoMYCIN 1 grams Route: IVPB; Infused Over: 2 hrs; Site: left antecubital; st1 11/04 00:06 Drug: SOLU-Medrol (methylPrednisoLONE) 125 mg Route: IVP; Site: left antecubital; st1 00:15 Drug: Insulin Regular Human 10 units {Co-Signature: tk1 (Laura Enrique).} Route: IVP; st1 Site: left antecubital; Disposition Summary: 11/03/21 23:24 Hospitalization Ordered Hospitalization Status: Inpatient Admission sp3 Provider: Tonya Villalpando sp3 Location: Telemetry/MedSurg (Inpatient) sp3 Condition: Stable sp3 Problem: an ongoing problem sp3 Symptoms: have worsened sp3 Bed/Room Type: Standard sp3 Room Assignment: 403(11/04/21 00:16) eb1 Diagnosis - Acute respiratory distress syndrome sp3 - Pneumonia due to SARS-associated coronavirus sp3 - SARS-associated coronavirus as the cause of diseases classified elsewhere sp3 Forms: - Medication Reconciliation Form sp3 - SBAR form sp3 Signatures: Dispatcher [employer] EDMS Shahana Caceres FNP-C FNP-Ckb Basinger, Emily, RN RN eb1 Dion Newton MD MD sp3 Niharika Carrington RN RN st1 Laura Enrique tk1 Corrections: (The following items were deleted from the chart) 11/03 23:07 22:58 76-year-old female with a history of hypertension, breast cancer, recent DKA sp3 admission presents again via EMS for altered mental status, multiple falls, and blood sugar reading "high". Limited history secondary to her mental status changes. Patient tested negative for COVID-19 on her last visit. Limited ROS but per family there is no fever, vomiting, diarrhea, reported pain. Family reports multiple contusions on patient's back and also possible head injury.. sp3 23:17 23:08 ED course: Extensive work-up including VBG, labs, UA, CT of the chest abdomen and sp3 pelvis from Ortho trauma standpoint and pulmonary standpoint as well as a CT of the head secondary to the confusion and altered mental status. Broad differential diagnosis exist including continued worsening respiratory status secondary to COVID, secondary infection, sepsis, multiorgan dysfunction syndrome, traumatic injury, shock, other infection. Secondary acute coronary syndrome is also possibility secondary to stress ischemia. Patient will need to be admitted to the hospital again for further treatment and continued work-up.. sp3 23:35 23:08 ED course: Extensive work-up including VBG, labs, UA, CT of the chest abdomen and sp3 pelvis from Ortho trauma standpoint and pulmonary standpoint as well as a CT of the head secondary to the confusion and altered mental status. Broad differential diagnosis exist including continued worsening respiratory status secondary to COVID, secondary infection, sepsis, multiorgan dysfunction syndrome, traumatic injury, shock, other infection. Secondary acute coronary syndrome is also possibility secondary to stress ischemia. Patient will need to be admitted to the hospital again for further treatment and continued work-up. Platelets remain low at 66. At this time I am not highly suspicious of a consumption coagulopathy but DIC panel should be considered on the inpatient work-up.. sp3 11/04 00:16 11/03 23:24 sp3 eb1 11/04 00:17 11/03 22:56 PMHx: breast cancer; st1 st1 11/04 00:17 11/03 22:56 PMHx: Low platelet; st1 st1
--- NOTE | 2021-11-03 23:25 | ER ---
Nurse's Notes [facility] Name: Maren Wolfe Age: 76 yrs Sex: Female : 1945 Arrival Date: 11/03/2021 Time: 21:42 Bed 4 Private MD: Diagnosis: Acute respiratory distress syndrome;Pneumonia due to SARS-associated coronavirus;SARS-associated coronavirus as the cause of diseases classified elsewhere Presentation: 11/03 21:43 Chief complaint: EMS states: COVID symptoms and possible DKA. Coronavirus screen: st1 Client presents with at least one sign or symptom that may indicate coronavirus-19. Provider contacted for isolation considerations. Ebola Screen: Patient denies travel to an Ebola-affected area in the 21 days before illness onset. Risk Assessment: Do you want to hurt yourself or someone else? Patient reports no desire to harm self or others. Onset of symptoms was October 29, 2021. 21:43 Method Of Arrival: EMS: [facility] st1 21:43 Acuity: ANNETTE 2 st1 11/04 00:26 Initial Sepsis Screen: Does the patient meet any 2 criteria? Does the patient have a st1 suspected source of infection?. Triage Assessment: 11/03 21:46 General: Appears distressed, well groomed, well developed, well nourished, Behavior is st1 calm, cooperative, quiet. Pain: Denies pain. Historical: - Allergies: 22:55 No Known Allergies; st1 - PMHx: 11/04 00:17 breast cancer; Low platelet; st1 - Immunization history:: Adult Immunizations up to date, daughter is unsure if the patient received the vaccine Last tetanus immunization: up to date Pneumococcal vaccine is up to date, Flu vaccine is up to date. - Social history:: Smoking status: Patient denies any tobacco usage or history of. Patient/guardian denies using tobacco. - Family history:: not pertinent. - Code Status:: daughter states she unsure what she wants done at this time . spoke to the patients other daughter about code status.. Screenin/12 22:23 Abuse screen: Denies threats or abuse. Nutritional screening: No deficits noted. st1 Tuberculosis screening: No symptoms or risk factors identified. Fall Risk None identified. No fall in past 12 months (0 pts). Secondary diagnosis (15 points) impaired mobility, IV access (20 points). Ambulatory Aid- None/Bed Rest/Nurse Assist (0 pts). Gait- Weak (10 pts.). Mental Status- Overestimates/Forgets Limitations (15 pts.). Total Galeas Fall Scale indicates High Risk Score (45 or more points). Fall prevention measures have been instituted. Side Rails Up X 2 Frequent Obs/Assessments Occuring As available patient and family educated on Fall Prevention Program and Strategies. Assessment: 22:24 Neuro: Oriented to person, place, Moves all extremities. Gait is unsteady, Speech is st1 normal, Facial symmetry appears normal, Pupils are PERRLA, Intact Reports. Vital Signs: 21:43 BP 173 / 97; Pulse 102; Resp 23; Pulse Ox 100% on Non-rebreather mask; Weight 81.65 kg; st1 Height 5 ft. 6 in. (167.64 cm); Pain 0/10; 21:46 BP 173 / 97; Pulse 102; Resp 23; Pulse Ox 100% on Non-rebreather mask; st1 21:47 Temp 97.9; st1 23:13 BP 172 / 101; Pulse 102; Resp 25; Pulse Ox 99% on Non-rebreather mask; st1 01 00:23 BP 186 / 103; Pulse 98; Resp 23; Pulse Ox 92% on BiPAP; st1 11/03 21:43 Body Mass Index 29.05 (81.65 kg, 167.64 cm) st1 ED Course: 11/03 21:42 Patient arrived in ED. mw2 21:42 Niharika Carrington, RN is Primary Nurse. st1 21:45 Triage completed. st1 21:46 [facility] kb 21:46 Dion Newton MD is Attending Physician. kb 21:47 Patient has correct armband on for positive identification. Fall risk band placed. st1 Placed in gown. Bed in low position. Call light in reach. Side rails up X2. 21:53 blood glucose 493. Notified ED physician of a critical lab result(s). bg. st1 21:53 Oxygen administration via non-rebreather mask \\T\\ 15L/min Response to oxygen therapy: st1 symptoms improved. 22:11 Chest Single View XRAY In Process Unspecified. EDMS 22:20 COVID-19 SARS RT PCR (Document "Date of Onset" if Symptomatic) Sent. st1 22:20 Basic Metabolic Panel Sent. st1 22:20 Amylase Sent. st1 22:20 CT Chest Abdomen Pelvis W/O Contrast Sent. st1 22:20 CT Head Brain wo Cont Sent. st1 22:20 Amylase, Serum Sent. st1 22:20 Basic Metabolic Panel Sent. st1 22:20 Blood Culture Adult (2) Sent. st1 22:20 CBC with Diff Sent. st1 22:20 CPK Sent. st1 22:21 Lactate Sent. st1 22:21 Ckmb Sent. st1 22:21 LFT's Sent. st1 22:21 Lipase Sent. st1 22:21 Procalcitonin Sent. st1 22:21 Protime (+inr) Sent. st1 22:21 Ptt, Activated Sent. st1 22:21 Troponin HS Sent. st1 22:21 Inserted saline lock: 20 gauge in left antecubital area, using aseptic technique. st1 22:21 Maintain EMS IV. Dressing intact. Site clean \\T\\ dry. Gauge \\T\\ site: 20 ga right hand . IV st 1 is patent, is intact, with fluids infusing freely, Flushed right hand. 22:35 CT Chest Abdomen Pelvis W/O Contrast In Process Unspecified. EDMS 22:35 CT Head Brain wo Cont In Process Unspecified. EDMS 22:37 Initial lab(s) drawn, by me, sent to lab. First set of blood cultures drawn by me, st1 Urine collected: Olsen catheter specimen, clear, COVID swab sent to lab. arrived with olsen. 23:03 Pt visited by daughter, st1 23:03 the patients daughter states the patient has had multiple falls while at home, however st1 she has not fallen in the past 48 hours. . She is weak when ambulating, and uses a walker or cane. 23:[address] patient on bipap 07/[address] Newton. st1 23:15 Manual Differential Sent. st1 23:20 Patient notified of wait time. EKG completed in triage. Results shown to MD. st1 23:23 Tonya Villalpando MD is Hospitalizing Provider. sp3 23:32 patient placed on CPAP 12 \\T\\45% per respiratory. st1 23:45 CPAP Sent. st1 11/04 00:[address] Newton notified. st1 00:26 No provider procedures requiring assistance completed. st1 00:53 Patient admitted, IV remains in place. st1 Administered Medications: 11/03 22:29 Drug: NS 0.9% (30 ml/kg) 30 ml/kg Route: IV; Rate: bolus; Site: left antecubital; st1 23:57 Drug: Cefepime 1 grams Route: IVPB; Rate: 200 ml/hr; Infused Over: 30 mins; Site: right st1 antecubital; 23:58 Drug: vancoMYCIN 1 grams Route: IVPB; Infused Over: 2 hrs; Site: left antecubital; st1 11/04 00:06 Drug: SOLU-Medrol (methylPrednisoLONE) 125 mg Route: IVP; Site: left antecubital; st1 00:15 Drug: Insulin Regular Human 10 units {Co-Signature: tk1 (Laura Enrique).} Route: IVP; st1 Site: left antecubital; Outcome: 11/03 23:24 Decision to Hospitalize by Provider. sp3 11/04 00:47 Admitted to Med/surg accompanied by nurse, family with patient, via stretcher, room st1 403, with chart, Other Bipap Report called to jennifer colindres Condition: improved Instructed on the need for admit. 01:15 Patient left the ED. st1 Signatures: Dispatcher [employer] EDShahana Garza, KAREN ORE TRIMMER-Leanna Castro 2 Dion Newton MD MD sp3 Niharika Carrington RN RN st1 Laura Enrique tk1 Corrections: (The following items were deleted from the chart) 11/03 22:25 22:22 General: Appears st1 st1 23:13 21:47 Arm band placed on right wrist. st1 st1 11/04 00:17 11/03 22:56 PMHx: breast cancer; st1 st1 11/04 99:11/03 22:56 PMHx: Low platelet; st1 st1
[2021-11-03 23:48] LABS: Protime INR 1.31
[2021-11-03] MEDS ORDERED: CEFEPIME 1 GM/VIAL ONE (23:48)
[2021-11-03] MEDS ORDERED: VANCOMYCIN 1 GM/VIAL ONE (23:49)
[2021-11-03] MEDS ORDERED: NA CHLORIDE 0.9% 100 ML ONE (23:49)
[2021-11-03] MEDS ORDERED: NA CHLORIDE 0.9% 250 ML ONE (23:49)
[2021-11-04 00:01] LABS: Blood Morphology Comment NOTED (NOT SEEN); Burr Cells 2+; Platelet Estimate DECR; Polychromasia 2+
[2021-11-04] MEDS ORDERED: METHYLPREDNISOLONE 125 MG INJ ONE (00:01)
[2021-11-04] MEDS ORDERED: INSULIN -REGULAR HUMAN 50 UNIT/0.5 ML ML ONE (00:15)
[2021-11-04 00:19] LABS: Arterial Blood Carboxyhemoglob 1.7 % (0-1.5); Blood Gas Oxyhemoglobin 32.7 % (94-97); Blood O2 Saturation 33.6 % (92-98.5)
[2021-11-04] MEDS ORDERED: HYDRALAZINE HCL 20 MG/ML VIAL IV PRN (01:00)
[2021-11-04] MEDS ORDERED: ONDANSETRON 4 MG/2 ML VIAL IV PRN (01:00)
[2021-11-04] MEDS ORDERED: BENZONATATE 100 MG CAP PO PRN (01:00)
[2021-11-04] MEDS ORDERED: MORPHINE 2 MG/ML SYR IV PRN (01:00)
[2021-11-04] MEDS ORDERED: ACETAMINOPHEN 500 MG TAB PO PRN (01:00)
[2021-11-04] MEDS ORDERED: MELATONIN 5 MG TABLET PO PRN (01:00)
[2021-11-04] MEDS ORDERED: VANCOMYCIN 500 MG in NA CHLORIDE 0.9% 100 ML IVPB ONE (02:00)
[2021-11-04 02:48] VITALS: BMI 23.1
[2021-11-04] MEDS ORDERED: NA CHLORIDE 0.9% 1,000 ML IV SCH (05:00)
[2021-11-04 05:18] LABS: Absolute Lymphocytes (CBC) 0.8 K/uL (0.7-4.9); Hematocrit 25.5 % (36.0-45.0); Lymphocytes % 3.9 % (15.3-44.8); MPV 11.3 fL (7.6-11.3); RBC Red Blood Cell Count 2.96 M/uL (3.86-4.86)
[2021-11-04 05:30] LABS: Urine Appearance CLOUDY (Clear); Urine Bilirubin NEGATIVE (Negative); Urine Blood 1+ (Negative); Urine Color YELLOW (Yellow); Urine Glucose 3+ (Negative); Urine Protein 2+ (Negative); Urine Urobilinogen 0.2 mg/dL (0.2-1.0); Urine pH 5.5 (5.0-7.0)
[2021-11-04 05:34] LABS: Urine Microscopic Reflex ORDER UMIC
[2021-11-04 05:42] LABS: Albumin 1.6 g/dL (3.4-5.0); Bilirubin Total 0.9 mg/dL (0.2-1.0); Ferritin 689.5 ng/mL (8-388); Magnesium 1.6 mg/dL (1.8-2.4); Phosphorus 2.7 mg/dL (2.5-4.9); Potassium 4.1 mmol/L (3.5-5.1); Protein, Total 4.8 g/dL (6.4-8.2); Thyroid Stimulating Hormone 0.28 uIU/mL (0.360-3.740)
[2021-11-04 05:45] LABS: Urine Bacteria <20 /HPF (<20); Urine RBC <5 /HPF (NONE SEEN); Urine Urothelial Cells <5 /HPF (NONE SEEN)
[2021-11-04] MEDS ORDERED: MAGNESIUM SULFATE 1 gm IVPB 1 GM/100 ML BAG IV ONE (06:11)
[2021-11-04] MEDS: NA CHLORIDE 0.9% 1,000 ML IV SCH (08:36)
--- NOTE | 2021-11-04 08:37 | P.CNS ---
Date of Consult: 11/04/21 Reason for Consult: Coronavirus pneumonia Chief Complaint: Altered mental status History of Present Illness: Patient is 76 years of age was recently discharged admitted again with altered mental status severe hypoxemia bilateral severe pneumonia currently she is on BiPAP Allergies No Known Allergies Allergy (Unverified 10/26/21 06:28) Home Medications: Famotidine [Pepcid*] 20 mg PO DAILY #30 tab 10/29/21 Folic Acid 1 mg PO DAILY #30 tablet 10/29/21 Insulin Glargine,Hum.rec.anlog [Lantus Solostar] 10 unit SQ BID #1 felix 10/29/21 Metoprolol Tartrate [Lopressor*] 25 mg PO BID 6AM 6PM #60 tab 10/29/21 Thiamine HCl [Vitamin B-1*] 100 mg PO DAILY #30 tablet 10/29/21 levoFLOXacin [Levaquin*] 500 mg PO DAILY #5 tab 10/29/21 predniSONE [Deltasone*] 10 mg PO SEECOM #21 tab 10/29/21 - Past Medical/Surgical History Diabetic: Yes -: History of breast cancer -: Recently told low platelet -: Hypertension -: diabetic -: History of right mastectomy -: History of - Social History Alcohol use: No CD- Drugs: No Caffeine use: No Place of Residence: Home Review of Systems is unable to be obtained Physical Examination Temp Pulse Resp BP Pulse Ox 96.4 F L 87 25 H 141/68 H 95 11/04/21 04:10 11/04/21 04:10 11/04/21 04:10 11/04/21 04:10 11/04/21 04:10 General: Unresponsive Respiratory: Diminished, Crackles/rales Cardiovascular: No edema, Regular rate/rhythm Laboratory Data (last 24 hrs) 11/03/21 23:10: PT 15.1 H, INR 1.31, APTT 21.7 L 11/03/21 22:15: WBC 14.60 H D, Hgb 9.1 L, Hct 28.0 L, Plt Count 66 L D 11/03/21 22:15: Sodium 134 L, Potassium 5.0, BUN 28 H, Creatinine 1.25, Glucose 524 H*, Total Bilirubin 1.3 H, AST 45 H, ALT 42, Alkaline Phosphatase 79, Amylase 24 L, Lipase 99 - Problems (1) 2019 novel coronavirus-infected pneumonia (NCIP) Current Visit: Yes Status: Acute Plan: Patient is 76 years of age admitted with severe coronavirus pneumonia she has diffuse disease on chest x-ray she remains hypoxic elevated white count elevated blood sugar chest x-ray reviewed currently on 50% FiO2 we will try high flow/consider Dobbhoff tube feeds prognosis poor
--- NOTE | 2021-11-04 08:40 | RAD REPORT ---
EXAM DESCRIPTION: RAD - Chest Single View - 11/04/2021 6:19 am CLINICAL HISTORY: pneumonia Chest pain. COMPARISON: Chest Single View dated 11/03/2021; Chest Single View dated 10/28/2021; Chest Single View d ated 10/27/2021; Chest Single View dated 10/26/2021 FINDINGS: Portable technique limits examination quality. Severe bilateral pulmonary opacities are noted, which have moderately worsened since the comparison s tudy is the previous day this most likely represents bilateral pneumonia. . The heart is mildly enlar ged in size.
[2021-11-04] MEDS: INSULIN -REGULAR HUMAN 50 UNIT/0.5 ML ML SQ SCH ×4 (09:23→21:01)
[2021-11-04] MEDS: THIAMINE HCL 100 MG TABLET PO SCH (09:24)
[2021-11-04] MEDS: METHYLPREDNISOLONE 125 MG INJ IV SCH ×2 (09:24→20:59)
[2021-11-04] MEDS: ZINC SULFATE 220 MG CAP PO SCH (09:24)
[2021-11-04] MEDS: VITAMIN D 1000 UNIT TAB PO SCH (09:24)
[2021-11-04] MEDS: ASCORBIC ACID 500 MG TABLET PO SCH ×4 (09:24→20:59)
[2021-11-04] MEDS: FAMOTIDINE 20 MG TAB PO SCH ×2 (09:27→20:59)
--- NOTE | 2021-11-04 09:56 | RAD REPORT ---
EXAM DESCRIPTION: RAD - Chest Single View - 11/03/2021 10:11 pm CLINICAL HISTORY: COUGH Chest pain. COMPARISON: Chest Single View dated 10/28/2021; Chest Single View dated 10/27/2021; Chest Single View da althea 10/26/2021 FINDINGS: Portable technique limits examination quality. Extensive bilateral pulmonary opacities are present, greater on the right, most likely representing p neumonia. The heart is upper limit of normal in size. No displaced fractures.
[2021-11-04] MEDS ORDERED: VANCOMYCIN 1 GM in NA CHLORIDE 0.9% 250 ML IVPB SCH (12:00)
--- NOTE | 2021-11-04 12:19 | RAD REPORT ---
EXAM DESCRIPTION: CT of the head without contrast CLINICAL HISTORY: TRAUMA COMPARISON: 10/26/2021 TECHNIQUE: Axial CT of the head obtained from the skull apex to the skull base without contrast. Thi s exam was performed according to our departmental dose-optimization program, which includes automate d exposure control, adjustment of the mA and/or kV according to patient size and/or use of iterative reconstruction technique. FINDINGS: No acute intracranial hemorrhage identified. No mass, mass effect, shift of the midline, abnormal extra-axial fluid collection or CT evidence of acute ischemic change identified. The ventri cular system and sulcal spaces are mildly enlarged compatible with mild cerebral atrophy. Confluent areas of hypodensity throughout the supratentorial white matter are nonspecific and may be related t o chronic small vessel ischemic change. Encephalomalacia with likely previous laminar necrosis in the right extreme capsule likely related to remote lacunar type infarction. The visualized paranasal sinuses and mastoid air cells are well aerated. No skull fracture identifi ed. Visualized orbits and globes are unremarkable. Atherosclerotic calcification of the intracranial internal carotid arteries. IMPRESSION: 1. No acute intracranial abnormality by CT criteria. Electronically signed by: Chris Gomes 11/03/2021 10:51 PM TRANSMITTER TESTER Due to temporary technical issues with the PACS/Fluency reporting system, reports are being signed by the in house radiologist without review as a courtesy to ensure prompt reporting. The interpreting r adiologist is fully responsible for the content of the report.
--- NOTE | 2021-11-04 12:31 | RAD REPORT ---
EXAM DESCRIPTION: CT of the chest, abdomen, and pelvis without contrast CLINICAL HISTORY: TRAUMA COMPARISON: 10/26/2021 TECHNIQUE: CT of the chest, abdomen and pelvis performed without IV contrast. Suboptimal evaluation of the soft tissues, solid organs, and vasculature due to lack of IV contrast. This exam was performe d according to our departmental dose-optimization program, which includes automated exposure control, adjustment of the mA and/or kV according to patient size and/or use of iterative reconstruction tech nique. FINDINGS: Chest: Thyroid: No abnormalities of the visualized thyroid. Great Vessels: Great vessels have normal anatomic configuration. Thoracic Aorta: Atherosclerotic calcification of the thoracic aorta. Pulmonary arteries: The main pulmonary artery is not dilated. Heart: Coronary artery atherosclerosis. No cardiomegaly or significant pericardial effusion. Lymph Nodes: No enlarged mediastinal lymph nodes identified. Esophagus: No abnormalities of the esophagus identified Other: No additional findings. Lungs: Interval development of bilateral groundglass and airspace opacities with interlobular septal thickening. Respiratory motion artifact. Pleura: Small bilateral pleural effusions. No pneumothorax. Trachea/Airways: No abnormalities of the visualized trachea or airways. Abdomen: Liver: The liver has normal size and density. Gallbladder: Calcified gallstone. Spleen, Pancreas, and Adrenal Glands: The spleen, pancreas, and adrenal glands are unremarkable. Kidneys: No hydronephrosis or obstructing ureteral calculus. Left renal cyst. Vasculature: The aorta and IVC have normal caliber and position. Stomach: The stomach and duodenum have normal course. Other: No free intraperitoneal air. No free fluid or lymphadenopathy. Mild body wall anasarca. Pelvis: Bladder: Garza catheter in a decompressed urinary bladder. Mild urinary bladder wall thickening. r in the urinary bladder may be related to catheterization. Bowel: No dilated loops of large or small bowel. Scattered diverticula of the colon. Appendix: Normal appendix. Pelvis: Prior hysterectomy. Bones: Multilevel degenerative endplate spondylosis, facet arthropathy, disc height narrowing through out the lumbar and thoracic spine. Stable compression fractures of T12, L1, and L3. Osteopenia. No ne w compression deformities identified. Osteoarthritic change of the hips and spine. Likely chronic fra cture of the right seventh rib. IMPRESSION: 1. Interval development of bilateral groundglass and airspace opacities with interlobu lar septal thickening. These findings could be seen with pulmonary edema. Underlying or superimposed pneumonic process could contribute to this appearance. 2. Small bilateral pleural effusions. 3. Coronary artery atherosclerosis. 4. Cholelithiasis. 5. Diverticulosis without evidence of acute diverticulitis. 6. Mild urinary bladder wall thickening. This could be seen with cystitis. Correlation with urinaly sis recommended. Electronically signed by: Chris Gomes 11/03/2021 11:00 PM TILE AND MOTTLE SUPERVISOR Due to temporary technical issues with the PACS/Fluency reporting system, reports are being signed by the in house radiologist without review as a courtesy to ensure prompt reporting. The interpreting r adiologist is fully responsible for the content of the report.
--- NOTE | 2021-11-04 18:45 | P.HP ---
Certification for Inpatient Patient admitted to: Inpatient With expected LOS: >2 Midnights Patient will require the following post-hospital care: None Practitioner: I am a practitioner with admitting privileges, knowledge of patient current condition, hospital course, and medical plan of care. Services: Services provided to patient in accordance with Admission requirements found in Title 42 Section 412.3 of the Code of Federal Regulations <Nic Steel Sharon - Last Filed: 11/04/21 18:50> Patient History Date of Service: 11/04/21 Reason for admission: Altered mental status History of Present Illness: Ms. Wolfe is a 76 yo F with HTN, DM, thrombocytopenia who was brought in by EMS for respiratory distress and placed on a nonrebreather. Upon arrival, she was placed on BIPAP. She was flagging for sepsis, and received sepsis bolus per protocol. She is COVID+ and was recently discharged from the hospital 5 days ago for thrombocytopenia and subsequent platelet transfusion. She was discharged home to follow up with [facility] for a bone marrow biopsy. Family says that she has had increasing malaise, dizziness, weakness, poor appetite, cough. She has a deep tissue injury on her sacrum, sustained after multiple falls at home. WBC 14.6 H/H 9.1 Plt 66 Na 134 BUN 28 GFR 41 Glu 524 Lactate 3.6 BNP 4483 procal 3.41 CRP 190 Tbili 1.4 Dbili 0.4 AST 45 PT 15.1 PTT 21.7 Fibrinogen 445 DD [id number] - Past Medical/Surgical History Has patient received pneumonia vaccine in the past: Yes Diabetic: Yes -: History of breast cancer -: Recently told low platelet -: Hypertension -: diabetic -: History of right mastectomy -: History of - Social History Smoking Status: Never smoker Alcohol use: No CD- Drugs: No Caffeine use: No Place of Residence: Home <Nic Steel - Last Filed: 11/04/21 18:50> Date of Service: 11/04/21 <Tonya Villalpando - Last Filed: 11/05/21 07:14> Allergies No Known Allergies Allergy (Unverified 10/26/21 06:28) Home Medications: Famotidine [Pepcid*] 20 mg PO DAILY #30 tab 10/29/21 Folic Acid 1 mg PO DAILY #30 tablet 10/29/21 Insulin Glargine,Hum.rec.anlog [Lantus Solostar] 10 unit SQ BID #1 felix 10/29/21 Metoprolol Tartrate [Lopressor*] 25 mg PO BID 6AM 6PM #60 tab 10/29/21 Thiamine HCl [Vitamin B-1*] 100 mg PO DAILY #30 tablet 10/29/21 levoFLOXacin [Levaquin*] 500 mg PO DAILY #5 tab 10/29/21 predniSONE [Deltasone*] 10 mg PO SEECOM #21 tab 10/29/21 Review of Systems is unable to be obtained General: Weakness, Malaise, As per HPI Eyes: Unremarkable ENT: Unremarkable Respiratory: Cough Cardiovascular: Unremarkable Gastrointestinal: Unremarkable Genitourinary: Retention Musculoskeletal: Unremarkable Integumentary: Bruising Neurological: Weakness, As per HPI Lymphatics: Unremarkable <Nic Steel - Last Filed: 11/04/21 18:50> Physical Examination - Vital Signs Temperature: 97.5 F Blood Pressure: 156/80 Pulse: 88 Respirations: 28 Pulse Ox (%): 96 - Physical Exam General: Confused HEENT: Atraumatic, PERRLA, Mucous membr. moist/pink, EOMI, Sclerae nonicteric Neck: Supple, 2+ carotid pulse no bruit, No LAD, Without JVD or thyroid abno rmality Respiratory: Diminished, Rhonchi/gurgles Cardiovascular: Regular rate/rhythm, Normal S1 S2, Edema Gastrointestinal: Normal bowel sounds, No tenderness Musculoskeletal: No tenderness Integumentary: Skin breakdown, Tenderness/swelling, Erythema, Other (Deep Tissue Injury to Sacrum 7.5 x 15) Neurological: Normal tone, Abnormal speech Lymphatics: No axilla or inguinal lymphadenopathy Urinary: Garza catheter - Studies Laboratory Data (last 24 hrs) 11/03/21 23:10: PT 15.1 H, INR 1.31, APTT 21.7 L 11/03/21 22:15: WBC 14.60 H D, Hgb 9.1 L, Hct 28.0 L, Plt Count 66 L D 11/03/21 22:15: Sodium 134 L, Potassium 5.0, BUN 28 H, Creatinine 1.25, Glucose 524 H*, Total Bilirubin 1.3 H, AST 45 H, ALT 42, Alkaline Phosphatase 79, Amylase 24 L, Lipase 99 <Nic Steel - Last Filed: 11/04/21 18:50> Assessment and Plan - Problems (Diagnosis) (1) 2018 novel coronavirus-infected pneumonia (NCIP) Current Visit: Yes Status: Acute (2) Diastolic CHF Current Visit: No Status: Chronic Qualifiers: Heart failure chronicity: chronic Qualified Code(s): I50.32 - Chronic diastolic (congestive) heart failure (3) Hyperglycemia without ketosis Current Visit: No Status: Acute (4) Thrombocytopenia Current Visit: No Status: Chronic (5) Deep tissue injury Current Visit: Yes Status: Acute - Plan pulmonology consulted, RT consulted wean BIPAP as tolerated continue IV vancomycin and cefepime continue IV steroids and covid supplements sepsis protocol monitor platelets sliding scale insulin and accuchecks hydralazine PRN for BP spikes wound care consulted SCDs for DVT ppx Discharge Plan: Home Plan to discharge in: Greater than 2 days - Advance Directives Does patient have a Living Will: No Does patient have a Durable POA for Healthcare: No - Code Status/Comfort Care Code Status Assessed: Yes (DNI) Critical Care: Yes Time Spent Managing Pts Care (In Minutes): 70 <DamiánSheridanNic Sharon - Last Filed: 11/04/21 18:50> Date of Service: 11/04/21 Subjective: Agree with HPI as mentioned above Physical Examination - Vital Signs Reviewed - Physical Exam General: Confused HEENT: BiPAP facemask in place Cardiovascular: Regular rate/rhythm, Normal S1 S2, Edema Gastrointestinal: Normal bowel sounds, No tenderness Musculoskeletal: No tenderness Integumentary: Skin breakdown, Tenderness/swelling, Erythema, Other (Deep Tissue Injury to Sacrum 7.5 x 15) Neurological: She is awake and following commands at this time. She is moving all her extremities. Assessment and Plan - Problems (Diagnosis) (1) 2018 novel coronavirus-infected pneumonia (NCIP) Current Visit: Yes Status: Acute (2) Diastolic CHF Current Visit: No Status: Chronic Qualifiers: Heart failure chronicity: chronic Qualified Code(s): I50.32 - Chronic diastolic (congestive) heart failure (3) Hyperglycemia without ketosis Current Visit: No Status: Acute (4) Thrombocytopenia Current Visit: No Status: Chronic (5) Deep tissue injury Current Visit: Yes Status: Acute - Plan Agree with plan of care as mentioned below: -Pulmonology consulted -wean BIPAP; patient more awake and alert and wanting to BiPAP of. The strength is improved. -continue IV vancomycin and cefepime -continue IV steroids and covid supplements -sepsis protocol -monitor platelets -sliding scale insulin and accuchecks -hydralazine PRN for BP spikes -wound care consulted; Medihoney and foam gel to be applied -SCDs for DVT ppx Discharge Plan: Home Plan to discharge in: Greater than 2 days - Advance Directives Does patient have a Living Will: No Does patient have a Durable POA for Healthcare: No - Code Status/Comfort Care Code Status Assessed: Yes (DNI) Critical Care: Yes Time Spent Managing Pts Care (In Minutes): 70 <Tonya Villalpando - Last Filed: 11/05/21 07:14>
[2021-11-04] MEDS ORDERED: ATORVASTATIN 80 MG TAB PO SCH (21:00)
[2021-11-04] MEDS: CEFEPIME 1 GM in NA CHLORIDE 0.9% 100 ML IV SCH (23:00)
[2021-11-05] MEDS ORDERED: VANCOMYCIN 1.5 GM in NA CHLORIDE 0.9% 500 ML IVPB SCH (02:00)
[2021-11-05] MEDS: NA CHLORIDE 0.9% 1,000 ML IV SCH (03:50)
--- NOTE | 2021-11-05 07:14 | P.PN ---
Date of Service: 11/05/21 Subjective: Currently weaning off of BiPAP support. Patient looks to be doing well and following commands. She states she is feeling better and would like for the BiPAP to be off. Pulmonary consulted and will follow their recommendations at this time. Patient was here a week ago and was sent home with home health. She ended up getting sick at home and had to return back to the hospital. She is currently feeling better. Her mentation has not improved since admission. Physical Examination - Vital Signs Reviewed - Physical Exam General: Confused HEENT: BiPAP facemask in place Cardiovascular: Regular rate/rhythm, Normal S1 S2, Edema Gastrointestinal: Normal bowel sounds, No tenderness Musculoskeletal: No tenderness Integumentary: Skin breakdown, Tenderness/swelling, Erythema, Other (Deep Tissue Injury to Sacrum 7.5 x 15) Neurological: She is awake and following commands at this time. She is moving all her extremities. Assessment and Plan - Problems (Diagnosis) (1) 2019 novel coronavirus-infected pneumonia (NCIP) Current Visit: Yes Status: Acute (2) Diastolic CHF Current Visit: No Status: Chronic Qualifiers: Heart failure chronicity: chronic Qualified Code(s): I50.32 - Chronic diastolic (congestive) heart failure (3) Hyperglycemia without ketosis Current Visit: No Status: Acute (4) Thrombocytopenia Current Visit: No Status: Chronic (5) Deep tissue injury Current Visit: Yes Status: Acute - Plan Agree with plan of care as mentioned below: -Pulmonology consulted -wean BIPAP; patient more awake and alert and wanting to BiPAP of. The strength is improved. -continue IV vancomycin and cefepime -continue IV steroids and covid supplements -sepsis protocol -monitor platelets -sliding scale insulin and accuchecks -hydralazine PRN for BP spikes -wound care consulted; Medihoney and foam gel to be applied -SCDs for DVT ppx Discharge Plan: Home Plan to discharge in: Greater than 2 days - Advance Directives Does patient have a Living Will: No Does patient have a Durable POA for Healthcare: No - Code Status/Comfort Care Code Status Assessed: Yes (DNI) Critical Care: Yes Time Spent Managing Pts Care (In Minutes): 70
[2021-11-05] MEDS: INSULIN -REGULAR HUMAN 50 UNIT/0.5 ML ML SQ SCH ×4 (07:30→21:00)
[2021-11-05] MEDS: VITAMIN D 1000 UNIT TAB PO SCH (08:52)
[2021-11-05] MEDS: METHYLPREDNISOLONE 125 MG INJ IV SCH ×2 (08:52→23:05)
[2021-11-05] MEDS: THIAMINE HCL 100 MG TABLET PO SCH (08:52)
[2021-11-05] MEDS: FAMOTIDINE 20 MG TAB PO SCH ×2 (08:52→21:00)
[2021-11-05] MEDS: MEDIHONEY 44 ML TOPICAL TUBE TOP SCH (08:53)
[2021-11-05] MEDS: ASCORBIC ACID 500 MG TABLET PO SCH ×4 (08:53→21:00)
[2021-11-05] MEDS: ZINC SULFATE 220 MG CAP PO SCH (08:53)
--- NOTE | 2021-11-05 11:26 | P.PN ---
Subjective Date of Service: 11/05/21 Chief Complaint: Respiratory failure from coronavirus Subjective: Improving (Patient is improving more alert today on high flow nasal cannula oxygen) Review of Systems General: Weakness Respiratory: Shortness of Breath Physical Examination - Vital Signs Temperature: 97.0 F Blood Pressure: 169/73 Pulse: 88 Respirations: 20 Pulse Ox (%): 97 - Physical Exam General: Alert, Cooperative Respiratory: Crackles/rales Cardiovascular: No edema, Normal S1 S2 Assessment & Plan - Problems (Diagnosis) (1) 2019 novel coronavirus-infected pneumonia (NCIP) Current Visit: Yes Status: Acute Plan: Patient is 76 years of age admitted with respiratory failure from coronavirus on 10 L she is 98% continue to titrate down the oxygen patient is very weak to eat will put in a Dobbhoff start tube feed blood cultures are negative White count is elevated patient has chronic thrombocytopenia platelet count
--- NOTE | 2021-11-05 12:01 | RAD REPORT ---
EXAM DESCRIPTION: RAD - Abdomen 1 View (KUB) - 11/05/2021 11:49 am CLINICAL HISTORY: Placement of Dobhoff COMPARISON: Chest Abd Pelvis Wo Con dated 11/03/2021 FINDINGS: Nonobstructive bowel gas pattern. No acute osseous abnormality.Weighted feeding tube at th e left lung base. Widespread bilateral airspace disease. IMPRESSION: The weighted feeding tube terminates in the left lung and should be removed/repositioned . Electronic communication sent to Dr. Mejia at 1150 on 11/05/21. 2 attempts made to contact the nurs es station on that floor but unsuccessful.
[2021-11-05 12:32] LABS: Absolute Lymphocytes (CBC) 1.7 K/uL (0.7-4.9); Hematocrit 32.6 % (36.0-45.0); Lymphocytes % 5.7 % (15.3-44.8); RBC Red Blood Cell Count 3.68 M/uL (3.86-4.86)
--- NOTE | 2021-11-05 13:27 | RAD REPORT ---
EXAM DESCRIPTION: [facility] Single View11/05/2021 1:12 pm CLINICAL HISTORY: Hypoxemia COMPARISON: November 05, 2021 FINDINGS: Dobhoff tube is not visualized and presumably has been removed. Mild improvement in left and mild to moderate improvement in the right lower pulmonary opacities. No other change
[2021-11-05 13:42] LABS: Platelet Estimate DECR
[2021-11-05 13:43] LABS: Anisocytosis 1+; Blood Morphology Comment NOTED (NOT SEEN); Polychromasia 1+
[2021-11-05 13:44] LABS: Burr Cells 1+
[2021-11-05 13:48] LABS: Bilirubin Total 1.2 mg/dL (0.2-1.0); Ferritin 691.3 ng/mL (8-388); Potassium 3.8 mmol/L (3.5-5.1); Protein, Total 5.7 g/dL (6.4-8.2)
[2021-11-05 13:52] LABS: Magnesium 1.3 mg/dL (1.8-2.4)
[2021-11-05] MEDS ORDERED: Magnesium Sulfate 2gm IVPB 2 G/50 ML BAG IV ONE ×2 (15:00→17:00)
--- NOTE | 2021-11-05 15:34 | RAD REPORT ---
EXAM DESCRIPTION: CT - Head Brain Wo Cont - 11/05/2021 2:51 pm CLINICAL HISTORY: Alteration of awareness/confusion TECHNIQUE: Computed axial tomography of the head was obtained. IV contrast was not requested. All CT scans are performed using dose optimization technique as appropriate and may include automated exposure control or mA/KV adjustment according to patient size. FINDINGS: A 5 centimeter low-density area right cerebellum. An intracranial bleed is not seen . The ventricles are normal in caliber. No extra-axial fluid collection is noted. Mild to moderate low-density areas within periventricular, deep and subcortical white matter likely r epresent ischemic changes secondary to small vessel disease. Fluid within the sinuses/ mastoids is not seen. IMPRESSION: 5 centimeter acute right cerebellar infarction. Exam discussed with Dr. Villalpando
[2021-11-05] MEDS ORDERED: MAGNESIUM 50% 3 GM in NA CHLORIDE 0.9% 100 ML IV ONE (16:30)
[2021-11-05] MEDS: ENOXAPARIN 30 MG/0.3 ML SQ SCH (16:54)
[2021-11-05] MEDS ORDERED: ASPIRIN 300 MG/SUPP PR ONE (17:00)
[2021-11-05] MEDS ORDERED: ASPIRIN 600 MG/SUPP PR ONE (17:39)
[2021-11-05] MEDS ORDERED: ASPIRIN 300 MG/SUPP PR SCH (18:00)
[2021-11-05 18:07] LABS: Arterial Blood Carboxyhemoglob 1.2 % (0-1.5); Blood O2 Saturation 91.1 % (92-98.5)
[2021-11-05] MEDS ORDERED: NA CHLORIDE 0.9% 100 ML ONE (22:32)
[2021-11-05] MEDS ORDERED: CEFEPIME 1 GM/VIAL ONE (22:40)
[2021-11-05] MEDS: CEFEPIME 1 GM in NA CHLORIDE 0.9% 100 ML IV SCH (22:55)
[2021-11-06] MEDS: NA CHLORIDE 0.9% 1,000 ML IV SCH ×2 (00:36→20:36)
[2021-11-06 06:43] LABS: Albumin 1.7 g/dL (3.4-5.0); Bilirubin Total 0.9 mg/dL (0.2-1.0); Ferritin 546.3 ng/mL (8-388); Potassium 3.6 mmol/L (3.5-5.1)
[2021-11-06] MEDS: INSULIN -REGULAR HUMAN 50 UNIT/0.5 ML ML SQ SCH ×4 (07:30→21:00)
--- NOTE | 2021-11-06 07:54 | RAD REPORT ---
EXAM DESCRIPTION: RAD - Chest Single View - 11/06/2021 6:45 am CLINICAL HISTORY: pneumonia COMPARISON: Chest Single View dated 11/05/2021; Abdomen 1 View (KUB) dated 11/05/2021; Chest Single Vi ew dated 11/04/2021; Chest Single View dated 11/03/2021; Chest Abd Pelvis Wo Con dated 11/03/2021 FINDINGS: Lines: None. Lungs: Severe bilateral airspace disease which is modestly worsened on the right side. Pleural: No significant pleural effusions or pneumothorax. Cardiac: The heart size is within normal limits. Bones: No acute fractures. Other: IMPRESSION: Modestly worsened aeration of the right lung with continued severe bilateral airspace di sease compatible with multifocal pneumonia.
[2021-11-06] MEDS: MEDIHONEY 44 ML TOPICAL TUBE TOP SCH (09:00)
[2021-11-06] MEDS ORDERED: POTASSIUM CL 20 MEQ in NA CHLORIDE 0.9% 20 MEQ/100 ML BAG IV ONE (09:00)
--- NOTE | 2021-11-06 09:14 | P.PN ---
Date of Service: 11/05/21 Subjective: According to the nursing staff patient's mentation has been poor after they attempted the top off. He had she has been tachypneic. We did a portable chest x-ray which did not reveal any pneumothorax or any worsening abnormality including worsening aspiration. A CT of the brain did confirm an acute cerebellar infarct. She came in with acute mental status changes. CT scan findings normally take about 48 to 72 hours to start appearing. She has some thrombocytopenia and she has been coagulopathic as well. This most likely occurred on admission when she was admitted with altered mental status. She has been having difficulty swallowing since admission. This did not seem to be an issue prior to her discharge a week ago. Spoke with family and at this time they do not want a lot of aggressive measures. The daughter was upset that polyp was attempted as she had not agreed to doing it. She spoke to burling and joining supervisor regarding this. I did speak to the nurse regarding the situation and asked her to talk to family before any intervention. Physical Examination - Vital Signs Reviewed - Physical Exam General: Confused Integumentary: Skin breakdown, Tenderness/swelling, Erythema, Other (Deep Tissue Injury to Sacrum 7.5 x 15) Neurological: Lethargic and not really following commands well. She does attempt to squeeze my hand bilaterally. She did wiggle her toes. Assessment and Plan - Problems (Diagnosis) (1) Acute CVA Current Visit: Yes Status: Acute (2) 2019 novel coronavirus-infected pneumonia (NCIP) Current Visit: No Status: Chronic Qualifiers: Heart failure chronicity: chronic Qualified Code(s): I50.32 - Chronic diastolic (congestive) heart failure (3) Hyperglycemia without ketosis Current Visit: No Status: Acute (4) Thrombocytopenia Current Visit: No Status: Chronic (5) Sacral decubitus wound Current Visit: Yes Status: Acute - Plan - MRI of the brain unable to be obtained as patient is on BiPAP support - Antiplatelet and statin therapy - Lipid profile - Physical therapy and speech therapy consultation - DVT prophylaxis - Neurochecks every 4 hours - Reassess stroke scale - continue BIPAP; ABGs -continue abx -continue IV steroids -sepsis protocol -monitor platelets -sliding scale insulin and accuchecks -hydralazine PRN for BP spikes -wound care consulted; Medihoney and foam gel to be applied -SCDs for DVT ppx Discharge Plan: Home Plan to discharge in: Greater than 2 days - Advance Directives Does patient have a Living Will: No Does patient have a Durable POA for Healthcare: No - Code Status/Comfort Care Code Status Assessed: Yes (DNI) Critical Care: No Time Spent Managing Pts Care (In Minutes): 60
[2021-11-06] MEDS: VITAMIN D 1000 UNIT TAB PO SCH (09:49)
[2021-11-06] MEDS: ZINC SULFATE 220 MG CAP PO SCH (09:49)
[2021-11-06] MEDS: FAMOTIDINE 20 MG TAB PO SCH ×2 (09:49→21:00)
[2021-11-06] MEDS: THIAMINE HCL 100 MG TABLET PO SCH (09:50)
[2021-11-06] MEDS: ASCORBIC ACID 500 MG TABLET PO SCH ×4 (09:50→21:00)
[2021-11-06] MEDS: METHYLPREDNISOLONE 125 MG INJ IV SCH ×2 (09:50→21:00)
[2021-11-06 10:11] LABS: Absolute Lymphocytes (CBC) 0.6 K/uL (0.7-4.9); Hematocrit 28.4 % (36.0-45.0); Lymphocytes % 2.4 % (15.3-44.8); RBC Red Blood Cell Count 3.32 M/uL (3.86-4.86)
[2021-11-06 10:21] LABS: MPV 10.3 fL (7.6-11.3)
[2021-11-06] MEDS: CEFEPIME 1 GM in NA CHLORIDE 0.9% 100 ML IV SCH ×2 (12:03→22:32)
[2021-11-06] MEDS ORDERED: ASPIRIN 600 MG/SUPP PR ONE (16:53)
[2021-11-06] MEDS: CLINDAMYCIN INJ 600 MG in NA CHLORIDE 0.9% 50 ML IV SCH (17:13)
[2021-11-06] MEDS: ENOXAPARIN 30 MG/0.3 ML SQ SCH (17:14)
[2021-11-07] MEDS: CLINDAMYCIN INJ 600 MG in NA CHLORIDE 0.9% 50 ML IV SCH ×3 (00:58→16:10)
[2021-11-07 06:05] LABS: Absolute Lymphocytes (CBC) 0.5 K/uL (0.7-4.9); Hematocrit 28.8 % (36.0-45.0); Lymphocytes % 1.8 % (15.3-44.8); MPV 10.7 fL (7.6-11.3); RBC Red Blood Cell Count 3.21 M/uL (3.86-4.86)
[2021-11-07 06:23] LABS: Albumin 1.7 g/dL (3.4-5.0); Bilirubin Total 0.7 mg/dL (0.2-1.0); Ferritin 537.5 ng/mL (8-388); Protein, Total 5.2 g/dL (6.4-8.2)
[2021-11-07] MEDS: INSULIN -REGULAR HUMAN 50 UNIT/0.5 ML ML SQ SCH ×3 (07:30→16:09)
[2021-11-07] MEDS: ZINC SULFATE 220 MG CAP PO SCH (09:00)
[2021-11-07] MEDS: MEDIHONEY 44 ML TOPICAL TUBE TOP SCH (09:00)
[2021-11-07] MEDS: METHYLPREDNISOLONE 125 MG INJ IV SCH (09:00)
[2021-11-07] MEDS: THIAMINE HCL 100 MG TABLET PO SCH (09:00)
[2021-11-07] MEDS: VITAMIN D 1000 UNIT TAB PO SCH (09:00)
[2021-11-07] MEDS: ASCORBIC ACID 500 MG TABLET PO SCH ×3 (09:00→16:11)
[2021-11-07] MEDS: FAMOTIDINE 20 MG TAB PO SCH (09:00)
[2021-11-07] MEDS ORDERED: GLUCERNA SHAKE 237 ML CAN PO SCH (09:00)
[2021-11-07] MEDS ORDERED: NA CHLORIDE 0.9% 1,000 ML IV SCH (09:35)
[2021-11-07] MEDS: CEFEPIME 1 GM in NA CHLORIDE 0.9% 100 ML IV SCH (11:00)
[2021-11-07] MEDS ORDERED: ALBUMIN HUMAN 25% 100 ML IV ONE (11:43)
[2021-11-07] MEDS ORDERED: HYDROCORTISONE SUC 100 MG INJ IV ONE (12:32)
[2021-11-07] MEDS ORDERED: dexAMETHasone 4 MG/ML VIAL ONE (12:38)
[2021-11-07] MEDS ORDERED: NOREPINEPHRINE 4 MG in D5W 250 ML IV SCH (13:00)
[2021-11-07 13:42] VITALS: O2SAT 90
[2021-11-07] MEDS: ENOXAPARIN 30 MG/0.3 ML SQ SCH (16:10)
[2021-11-07 18:27] VITALS: BP 90/40; TEMP 97
--- NOTE | 2021-11-07 23:10 | P.PN ---
Date of Service: 11/06/21 Subjective: Patient mentation has not improved. Clinical symptoms not really improving much. Family considering do not resuscitate. Family coming to visit the patient. Physical Examination - Vital Signs Reviewed - Physical Exam General: Confused Integumentary: Skin breakdown, Tenderness/swelling, Erythema, Other (Deep Tissue Injury to Sacrum 7.5 x 15) Neurological: Lethargic and not really following commands well. She does attempt to squeeze my hand bilaterally. She did wiggle her toes. Assessment and Plan - Problems (Diagnosis) (1) Acute CVA Current Visit: Yes Status: Acute (2) 2019 novel coronavirus-infected pneumonia (NCIP) Current Visit: No Status: Chronic Qualifiers: Heart failure chronicity: chronic Qualified Code(s): I50.32 - Chronic diastolic (congestive) heart failure (3) Hyperglycemia without ketosis Current Visit: No Status: Acute (4) Thrombocytopenia Current Visit: No Status: Chronic (5) Sacral decubitus wound Current Visit: Yes Status: Acute - Plan - progressive symptoms at this time. - continue with antiplatelet and statin therapy - Physical therapy and speech therapy consultation on hold; unresponsive - DVT prophylaxis - Neurochecks every 4 hours - continue BIPAP; ABGs -continue abx -continue IV steroids -sepsis protocol -monitor platelets -sliding scale insulin and accuchecks -hydralazine PRN for BP spikes -wound care consulted; Medihoney and foam gel to be applied -SCDs for DVT ppx Discharge Plan: Home Plan to discharge in: Greater than 2 days - Advance Directives Does patient have a Living Will: No Does patient have a Durable POA for Healthcare: No - Code Status/Comfort Care Code Status Assessed: Yes (DNI) Critical Care: No Time Spent Managing Pts Care (In Minutes): 60
--- NOTE | 2021-11-07 23:12 | P.DS ---
Discharge Date: 11/07/21 Disposition: Reason for Admission: Respiratory failure from coronavirus Brief History of Present Illness: Patient is a 68-year-old female who was admitted to the hospital with COVID-19 pneumonia. Patient was hypoxic and placed on BiPAP support. Hospital Course: Patient suffered a stroke. Patient mentation worsened. Patient's family decided to proceed with do not resuscitate except vasopressors. Patient was started on vasopressors. However, family decided to withdraw care. Patient with family at bedside. Home Medications: Famotidine [Pepcid*] 20 mg PO DAILY #30 tab 10/29/21 Folic Acid 1 mg PO DAILY #30 tablet 10/29/21 Insulin Glargine,Hum.rec.anlog [Lantus Solostar] 10 unit SQ BID #1 felix 10/29/21 Metoprolol Tartrate [Lopressor*] 25 mg PO BID 6AM 6PM #60 tab 10/29/21 Thiamine HCl [Vitamin B-1*] 100 mg PO DAILY #30 tablet 10/29/21 levoFLOXacin [Levaquin*] 500 mg PO DAILY #5 tab 10/29/21 predniSONE [Deltasone*] 10 mg PO SEECOM #21 tab 10/29/21 Physician Discharge Instructions: Patient and her body was picked up by the home Time spent managing pt's care (in minutes): 55
--- NOTE | 2021-11-10 07:38 | EKG ---
Test Date: 2021-11-03 Test Time: 22:53:35 Net Software Developer: ST MEASUREMENT RESULTS: Intervals: Rate: 90 SD: 118 QRSD: 110 QT: 398 QTc: 486 [place]: P: 38 SD: 118 QRS: -14 T: 12 INTERPRETIVE STATEMENTS: Normal sinus rhythm Possible Left atrial enlargement Incomplete right bundle branch block Borderline ECG Compared to ECG 10/26/2021 00:25:51 Left-axis deviation no longer present Left ventricular hypertrophy no longer present Electronically Signed On 11-10-21 07:27:50 ENTREPRENEUR by Josh Méndez
== END 2021-11-07 18:36 | disposition expired | DRG 871 ==
LOC: ER 21:36 → ERHOLD 11-04 00:11 → 4TH 11-04 00:31
PROVIDERS: ADMIT Internal Medicine; ATTEND Hospitalist
PROC: 5A09457 Assistance with Respiratory Ventilation, 24-96 Consecutive Hours, Continuous Positive Airway Pressure (ICD-10-PCS; principal; 2021-11-04)
DX: A41.89 Other specified sepsis (principal); U07.1 COVID-19; J80 Acute respiratory distress syndrome; J12.81 Pneumonia due to SARS-associated coronavirus; I63.9 Cerebral infarction, unspecified; I50.32 Chronic diastolic (congestive) heart failure; I11.0 Hypertensive heart disease with heart failure; E11.65 Type 2 diabetes mellitus with hyperglycemia; D69.6 Thrombocytopenia, unspecified; L89.156 Pressure-induced deep tissue damage of sacral region; Z85.3 Personal history of malignant neoplasm of breast; Z79.4 Long term (current) use of insulin; Z79.52 Long term (current) use of systemic steroids; Z79.899 Other long term (current) drug therapy; Z90.11 Acquired absence of right breast and nipple; Z66 Do not resuscitate
CPT/HCPCS: 36415; 70450; 71045; 71250; 74018; 74176; 80048; 80053; 80061; 80076; 81003; 81015; 82150; 82550; 82553; 82728; 82805; 82947; 83605; 83690; 83735; 83880; 84100; 84145; 84439; 84443; 84484; 85025; 85379; 85384; 85610; 85730; 86140; 86850; 86900; 86901; 87040; 92610; 93005; 94660; 94760; 99251; 99285; J0360; J0692; J1100; J1650; J1720; J2270; J2930; J3370; J3475; J3480; J7030; J7040; J7050; J7060; P9047; U0003